=== PATIENT | male | born 1975 | race African-American/Black ===

== ENCOUNTER 2018-11-13 11:16 | Inpatient (IN) | payer SELFPAY ==
[~2018-11-13] VITALS: Ht 175.3 cm; Wt 85.7 kg
[~2018-11-13 11:16] MED LIST: AMLO5TAB10 PO; AMLO5TAB4; AMLO5TAB4 PO; AMOX1TAB61 PO; ASPI-482 PO; ASPI-612 PO; Aspirin PO; CARV12.5 PO; CARV12.511 PO; CLON1PAT3 TD; CYCL10TA2 PO; FURO-68 PO; HYDR-2869 PO; HYDR50TA6 PO; ISOS30TA4 PO; LABE200T4 PO; LISI-334 PO; LOSA-73 PO; LOSA100T14 PO; METH-38 PO; OXYC1TAB15 PO; PANT40TA77 PO; SPIR25TA5 PO; TRAM-48 PO; TRAM50TA PO
--- NOTE | 2018-11-13 11:39 | PHYS DOC ---
Past Medical History Past Medical History: CHF, High Cholesterol, Hypertension, Pancreatitis Additional Past Medical Histor: " LEAKY VALVE" Past Surgical History: Cholecystectomy Additional Past Surgical Histo: cardiac cath with stent placement Alcohol Use: Occasionally Drug Use: None Adult General Chief Complaint Chief Complaint: ABDOMINAL PAIN [facility] HPI Patient is a 43 year old male who presents with abdominal pain since Tuesday. The patient states he has a history of acute pancreatitis. Patient states however that he has not drank in over a year. Patient states the location of pain is in the left flank and left upper quadrant. Rates his pain as 10 out of 10 in severity and states that it feels sharp and pressure was not taken any medications prior to arrival. Review of Systems Review of Systems Constitutional: Denies fever or chills [] Eyes: Denies change in visual acuity, redness, or eye pain [] HENT: Denies nasal congestion or sore throat [] Respiratory: Denies cough or shortness of breath [] Cardiovascular: No additional information not addressed in HPI [] GI: Reports left sided abdominal pain, Denies nausea, vomiting, bloody stools or diarrhea [] : Denies dysuria or hematuria [] Musculoskeletal: Denies back pain or joint pain [] Integument: Denies rash or skin lesions [] Neurologic: Denies headache, focal weakness or sensory changes [] Endocrine: Denies polyuria or polydipsia [] Complete systems were reviewed and found to be within normal limits, except as documented in this note. Current Medications Current Medications Current Medications Medications (Trade) Dose Ordered Sig/Morris Start Time Stop Time Status Last Admin Dose Admin Insulin Human Regular (HumuLIN R VIAL) 8 unit 1X ONCE 11/13/18 14:15 11/13/18 14:16 Ketorolac Tromethamine (Toradol 15mg Vial) 15 mg 1X ONCE 11/13/18 12:00 11/13/18 12:01 DC 11/13/18 12:20 15 MG Morphine Sulfate (Morphine Sulfate) 4 mg 1X ONCE 11/13/18 12:00 11/13/18 12:01 DC 11/13/18 12:20 4 MG Ondansetron HCl (Zofran) 4 mg 1X ONCE 11/13/18 12:00 11/13/18 12:01 DC 11/13/18 12:20 4 MG Sodium Chloride 1,000 ml @ 1,000 mls/hr 1X ONCE 11/13/18 13:30 11/13/18 14:29 Allergies Allergies Allergies Coded Allergies Type Severity Reaction Last Updated Verified hydrocodone Allergy Severe itching all over body, tolerates Morphine OK 04/24/15 Yes fentanyl Allergy Intermediate Nausea and Vomiting 12/24/15 Yes Iodine and Iodide Containing Produc Allergy Unknown 11/13/18 Yes Physical Exam Physical Exam Constitutional: Well developed, well nourished, no acute distress, non-toxic appearance. [] HENT: Normocephalic, atraumatic, bilateral external ears normal, oropharynx moist, no oral exudates, nose normal. [] Eyes: PERRLA, EOMI, conjunctiva normal, no discharge. [] Neck: Normal range of motion, no tenderness, supple, no stridor. [] Cardiovascular:Heart rate regular rhythm, no murmur [] Lungs & Thorax: Bilateral breath sounds clear to auscultation [] Abdomen: Bowel sounds normal, soft, diffuse tenderness to left flank, and LUQ, no masses, no pulsatile masses. [] Skin: Warm, dry, no erythema, no rash. [] Back: No tenderness, has left sided CVA tenderness. [] Extremities: No tenderness, no cyanosis, no clubbing, ROM intact, no edema. [] Neurologic: Alert and oriented X 3, normal motor function, normal sensory function, no focal deficits noted. [] Psychologic: Affect normal, judgement normal, mood normal. [] Current Patient Data Vital Signs Vital Signs Date Time Temp Pulse Resp B/P (MAP) Pulse Ox O2 Delivery O2 Flow Rate FiO2 11/13/18 12:20 16 99 Room Air 11/13/18 11:31 97.9 111 172/102 (125) 97.9 Lab Values Laboratory Tests Test 11/13/18 11:20 11/13/18 11:35 Urine Collection Type Unknown Urine Color Yellow Urine Clarity Clear Urine pH 5.5 Urine Specific [place] >=1.030 Urine Protein Negative mg/dL (NEG-TRACE) Urine Glucose (UA) >=1000 mg/dL (NEG) Urine Ketones (Stick) Negative mg/dL (NEG) Urine Blood Negative (NEG) Urine Nitrite Negative (NEG) Urine Bilirubin Negative (NEG) Urine Urobilinogen Dipstick 0.2 mg/dL (0.2 mg/dL) Urine Leukocyte Esterase Negative (NEG) Urine RBC 0 /HPF (0-2) Urine WBC 0 /HPF (0-4) Urine Bacteria 0 /HPF (0-FEW) White Blood Count 5.8 x10^3/uL (4.0-11.0) Red Blood Count 5.36 x10^6/uL (4.30-5.70) Hemoglobin 14.3 g/dL (13.0-17.5) Hematocrit 43.5 % (39.0-53.0) Mean Corpuscular Volume 81 fL (79-100) Mean Corpuscular Hemoglobin 27 pg (25-35) Mean Corpuscular Hemoglobin Concent 33 g/dL (31-37) Red Cell Distribution Width 13.5 % (11.5-14.5) Platelet Count 228 x10^3/uL (140-400) Neutrophils (%) (Auto) 61 % (31-73) Lymphocytes (%) (Auto) 29 % (24-48) Monocytes (%) (Auto) 9 % (0-9) Eosinophils (%) (Auto) 1 % (0-3) Basophils (%) (Auto) 1 % (0-3) Neutrophils # (Auto) 3.5 x10^3uL (1.8-7.7) Lymphocytes # (Auto) 1.7 x10^3/uL (1.0-4.8) Monocytes # (Auto) 0.5 x10^3/uL (0.0-1.1) Eosinophils # (Auto) 0.0 x10^3/uL (0.0-0.7) Basophils # (Auto) 0.1 x10^3/uL (0.0-0.2) Sodium Level 122 mmol/L (136-145) L Potassium Level 4.5 mmol/L (3.5-5.1) Chloride Level 87 mmol/L (98-107) L Carbon Dioxide Level 23 mmol/L (21-32) Anion Gap 12 (6-14) Blood Urea Nitrogen 16 mg/dL (8-26) Creatinine 1.6 mg/dL (0.7-1.3) H Estimated GFR (Cockcroft-Gault) 57.4 BUN/Creatinine Ratio 10 (6-20) Glucose Level 746 mg/dL (70-99) *H Calcium Level 9.8 mg/dL (8.5-10.1) Total Bilirubin 0.4 mg/dL (0.2-1.0) Aspartate Amino Transferase (AST) 21 U/L (15-37) Alanine Aminotransferase (ALT) 37 U/L (16-63) Alkaline Phosphatase 245 U/L (46-116) H IW-Fkx-G-Type Natriuretic Peptide 205 pg/mL (0-124) H Total Protein 8.6 g/dL (6.4-8.2) H Albumin 3.8 g/dL (3.4-5.0) Albumin/Globulin Ratio 0.8 (1.0-1.7) L Lipase 280 U/L (73-393) Laboratory Tests 11/13/18 11:35 Laboratory Tests 11/13/18 11:35 EKG EKG [] Radiology/Procedures Radiology/Procedures [] Course & Med Decision Making Course & Med Decision Making Pertinent Labs and Imaging studies reviewed. (See chart for details) Will get a CT abd pelvis without contrast due to contrast allergy, labs, and urine. Labs shows blood sugar of 747 with a corrected sodium of 138. Discussed case with Dr. Gillis who will admit to hospital. Dragon Disclaimer Dragon Disclaimer This electronic medical record was generated, in whole or in part, using a voice recognition dictation system. Departure Departure Impression: Primary Impression: Hyperglycemia Disposition: 09 ADMITTED INPATIENT Admitting Physician: JASWINDER Condition: STABLE Referrals: NO PCP (PCP) PRATIK ORTIZ APRN Nov 13, 2018 11:39
[2018-11-13 11:45] LABS: BILIRUBIN,URINE NEGATIVE (NEG); CLARITY,URINE CLEAR; COLOR,URINE YELLOW; NITRITE,URINE NEGATIVE (NEG); PH,URINE 5.5; PROTEIN,URINE NEGATIVE (NEG-TRACE); UROBILINOGEN,URINE 0.2 mg/dL (0.2 mg/dL)
[2018-11-13 11:52] LABS: BASO # 0.1 x10^3/uL (0.0-0.2); BASO % 1 % (0-3); EOS % 1 % (0-3); HEMATOCRIT 43.5 % (39.0-53.0); HEMOGLOBIN 14.3 g/dL (13.0-17.5); LYMPH # 1.7 x10^3/uL (1.0-4.8); LYMPH % 29 % (24-48); MEAN CORPUSCULAR HEMOGLOBIN 27 pg (25-35); MEAN CORPUSCULAR HGB CONC 33 g/dL (31-37); MEAN CORPUSCULAR VOLUME 81 fL (79-100); MONO # 0.5 x10^3/uL (0.0-1.1); MONO % 9 % (0-9); NEUT # 3.5 x10^3uL (1.8-7.7); NEUT % 61 % (31-73); PLATELET COUNT 228 x10^3/uL (140-400); RED BLOOD COUNT 5.36 x10^6/uL (4.30-5.70); RED CELL DISTRIBUTION WIDTH 13.5 % (11.5-14.5); WHITE BLOOD COUNT 5.8 x10^3/uL (4.0-11.0)
[2018-11-13 11:53] LABS: BACTERIA,URINE 0 /HPF (0-FEW); RBC,URINE 0 /HPF (0-2); WBC,URINE 0 /HPF (0-4)
[2018-11-13] MEDS ORDERED: KETOROLAC 15 MG/ML VIAL. IV ONE (12:00)
[2018-11-13] MEDS ORDERED: ONDANSETRON PF 4 MG/2 ML VIAL. IV ONE (12:00)
[2018-11-13] MEDS ORDERED: MORPHINE SULFATE 4 MG/ML VIAL. IV ONE (12:00)
[2018-11-13 12:03] LABS: ALBUMIN 3.8 g/dL (3.4-5.0); ALBUMIN/GLOBULIN RATIO 0.8 (1.0-1.7); CALCIUM 9.8 mg/dL (8.5-10.1); CREATININE 1.6 mg/dL (0.7-1.3); GFR 57.4; POTASSIUM 4.5 mmol/L (3.5-5.1); TOTAL BILIRUBIN 0.4 mg/dL (0.2-1.0); TOTAL PROTEIN 8.6 g/dL (6.4-8.2)
--- NOTE | 2018-11-13 12:44 | RAD ---
PQRS Compliance Statement: One or more of the following individualized dose reduction techniques were utilized for this examination: 1. Automated exposure control 2. Adjustment of the mA and/or kV according to patient size 3. Use of iterative reconstruction technique CT abdomen/pelvis without contrast 11/13/2018 11:33 AM INDICATION: Abdominal pain COMPARISON: CT abdomen/pelvis December 24, 2015 TECHNIQUE: Multiple axial CT images of the abdomen and pelvis were obtained without intravenous contrast. Coronal and sagittal reformats are provided. FINDINGS: Lung bases are clear. Heart size is within normal limits. Coronary artery vascular calcifications are present. Small hiatal hernia is identified. Evaluation of the solid abdominal viscera is limited by lack of intravenous contrast. Liver, spleen, bilateral adrenal glands are normal in appearance. Coarse calcifications within the pancreas most favor sequela of chronic pancreatitis. There is mild prominence of the main pancreatic duct measuring up to 5 mm. Calcifications of significantly progressed since prior examination from December 24, 2015. Cholecystectomy changes are present. There is no intrahepatic or extrahepatic biliary ductal dilatation. Abdominal aorta is normal in course and caliber. There are no pathologically enlarged lymph nodes in abdomen and pelvis. There is no free fluid or free intraperitoneal air. Small and large bowel are normal in caliber. There is no evidence for bowel obstruction. There are no pericolonic inflammatory changes. A normal, nondilated appendix is visualized without adjacent inflammatory changes. Moderate amount of stool is noted throughout the colon. The kidneys are relatively symmetric in appearance. There is no suspicious renal mass within the limitations of a noncontrast examination. There is no hydronephrosis. There are no calculi within the kidneys, ureters or urinary bladder. Mild bladder wall thickening may be secondary to underdistention versus cystitis. Prostate and seminal vesicles are normal in appearance. No suspicious osseous abnormality is identified. IMPRESSION: 1. No evidence for obstructive uropathy. 2. Coarse calcifications throughout the pancreas with mild dilatation of the main pancreatic duct measuring up to 5 mm. Findings most favor sequela of chronic pancreatitis. 3. Mild bladder wall thickening may be secondary to underdistention versus cystitis. 4. Moderate stool burden without evidence for bowel obstruction or inflammation. Electronically signed by: Nano Cardenas MD (11/13/2018 12:42 PM) [id number]
[2018-11-13] MEDS ORDERED: IV NORMAL SALINE 1000ML BAG 1,000 ML IV ONE (13:30)
--- NOTE | 2018-11-13 13:56 | PDOC1 ---
History and Physical Date of Admission Date of Admission DATE: 11/13/18 TIME: 13:54 Identification/Chief Complaint Chief Complaint Intractable abdominal pain Source Source: Patient History of Present Illness History of Present Illness Mr Loo is a 43yo M w/ PMHx HTN who presents with abdominal pain since Tuesday, 2 days ago. The patient states he has a history of acute pancreatitis and had had cholecystectomy for his first bout, then had alcoholic pancreatitis last year. Patient states he has not drank in over a year. Patient states the location of pain is in the left flank and left upper quadrant. Rates his pain as 10 out of 10 in severity and states that it feels sharp pain. He further notes he has been losing a lot of weight over the past 5 months and has had increased thirst and urination. He notes he had gotten off his blood pressure medications with his weight loss. In ED noted with a blood glucose of 746mg/dL, no history of diabetes and a creatinine of 1.[address] abdomen notable for findings most favoring sequela of chronic pancreatitis and moderate stool burden. Lipase was 280. Past Medical History Cardiovascular: CAD, CHF, HTN, Hyperlipidemia, Other Pulmonary: No pertinent hx CENTRAL NERVOUS SYSTEM: Other GI: No pertinent hx Heme/Onc: No pertinent hx Hepatobiliary: Cholelithiasis Psych: Addictions Musculoskeletal: low back pain Rheumatologic: No pertinent hx Infectious disease: No pertinent hx Renal/: No pertinent hx Endocrine: Other Past Surgical History Past Surgical History: Cholecystectomy Family History Family History: Cancer, Diabetes, Hypertension Social History Smoke: 1 pack per day ALCOHOL: other (QUIT) Drugs: None Current Problem List Problem List Problems Medical Problems: (1) Hyperglycemia Status: Acute Current Medications Current Medications Current Medications Morphine Sulfate (Morphine Sulfate) 4 mg 1X ONCE IV Last administered on 11/13/18at 12:20; Start 11/13/18 at 12:00; Stop 11/13/18 at 12:01; Status DC Ketorolac Tromethamine (Toradol 15mg Vial) 15 mg 1X ONCE IV Last administered on 11/13/18at 12:20; Start 11/13/18 at 12:00; Stop 11/13/18 at 12:01; Status DC Ondansetron HCl (Zofran) 4 mg 1X ONCE IV Last administered on 11/13/18at 12:20; Start 11/13/18 at 12:00; Stop 11/13/18 at 12:01; Status DC Sodium Chloride 1,000 ml @ 1,000 mls/hr 1X ONCE IV ; Start 11/13/18 at 13:30; Stop 11/13/18 at 14:29 Insulin Human Regular (HumuLIN R VIAL) 8 unit 1X ONCE IV ; Start 11/13/18 at 14:15; Stop 11/13/18 at 14:16 Ondansetron HCl (Zofran) 4 mg PRN Q8HRS PRN IV NAUSEA/VOMITING; Start 11/13/18 at 14:00; Stop 11/14/18 at 13:59; Status UNV Morphine Sulfate (Morphine Sulfate) 4 mg PRN Q2HR PRN IV PAIN; Start 11/13/18 at 14:00; Stop 11/14/18 at 13:59; Status UNV Active Scripts Active Cozaar (Losartan Potassium) 50 Mg Tablet 50 Mg PO DAILY Cyclobenzaprine Hcl 10 Mg Tablet 10 Mg PO TID Hydralazine Hcl 50 Mg Tablet 100 Mg PO TID Clonidine Tts-3 (Clonidine) 1 Each Patch.tdwk 1 Patch TD WEEKLY Aspirin Ec (Aspirin) 81 Mg Tablet.dr 81 Mg PO DAILYAC Amlodipine Besylate 5 Mg Tablet 10 Mg PO DAILY Allergies Allergies: Coded Allergies: hydrocodone (Verified Allergy, Severe, itching all over body, tolerates Morphine OK, 04/24/15) Iodine and Iodide Containing Produc (Verified Allergy, Intermediate, 11/13/18) fentanyl (Verified Allergy, Intermediate, Nausea and Vomiting, 12/24/15) ROS General: YES: Fatigue, Malaise, Appetite; No: Chills, Night Sweats, Other PSYCHOLOGICAL ROS: No: Anxiety, Behavioral Disorder, Concentration difficultie, Decreased libido, Depression, Disorientation, Hallucinations, Hostility, Irritablity, Memory difficulties, Mood Swings, Obsessive thoughts, Physical abuse, Sexual abuse, Sleep disturbances, Suicidal ideation, Other Eyes: No Blurry vision, No Decreased vision, No Double vision, No Dry eyes, No Excessive tearing, No Eye Pain, No Itchy Eyes, No Loss of vision, No Photophobia, No Scotomata, No Uses contacts, No Uses glasses, No Other HEENT: No: Heacaches, Visual Changes, Hearing change, Nasal congestion, Nasal discharge, Oral lesions, Sinus pain, Sore Throat, Epistaxis, Sneezing, Snoring, Tinnitus, Vertigo, Vocal changes, Other ALLERGY AND IMMUNOLOGY: No: Hives, Insect Bite Sensitivity, Itchy/Watery Eyes, Nasal Congestion, Post Nasal Drip, Seasonal Allergies, Other Hematological and Lymphatic: No: Bleeding Problems, Blood Clots, Blood T ransfusions, Brusing, Night Sweats, Pallor, Swollen Lymph Nodes, Other ENDOCRINE: YES: Malaise/lethargy, Polydipsia/polyuria, Unexpected Weight Changes; No: Breast Changes, Galactorrhea, Hair Pattern Changes, Hot Flashes, Mood Swings, Palpitations, Skin Changes, Temperature Intolerance, Other Breast: No New/Changing Breast Lumps, No Nipple changes, No Nipple discharge, No Other Respiratory: No: Cough, Hemoptysis, Orthopnea, Pleuritic Pain, Shortness of breath, SOB with excertion, Sputum Changes, Stridor, Tachypnea, Wheezing, Other Cardiovascular: No Chest Pain, No Palpitations, No Orthopnea, No Paroxysmal No c. Dyspnea, No Edema, No Lt Headedness, No Other Gastrointestinal: Yes Nausea; No Vomiting, No Abdominal Pain, No Diarrhea, No Constipation, No Melena, No Hematochezia, No Other Genitourinary: YES Flank Pain; No Dysuria, No Frequency, No Incontinence, No Hematuria, No Retention, No Discharge, No Urgency, No Pain, No Other, No , No , No , No , No , No , No Musculoskeletal: No Gait Disturbance, No Joint Pain, No Joint Stiffness, No Joint Swelling, No Muscle Pain, No Muscular Weakness, No Pain In:, No Swelling In:, No Other Neurological: No Behavorial Changes, No Bowel/Bladder ControlChng, No Confusion, No Dizziness, No Gait Disturbance, No Headaches, No Impaired Coord/balance, No Memory Loss, No Numbness/Tingling, No Seizures, No Speech Problems, No Tremors, No Visual Changes, No Weakness, No Other Skin: No Dry Skin, No Eczema, No Hair Changes, No Lumps, No Mole Changes, No Mottling, No Nail Changes, No Pruritus, No Rash, No Skin Lesion Changes, No Other, No Acne Physical Exam General: Alert, Oriented X3, Cooperative, No acute distress HEENT: Atraumatic, PERRLA, EOMI, Mucous membr. moist/pink Lungs: Clear to auscultation, Normal air movement Heart: S1S2, RRR, no gallops, no murmurs Abdomen: Normal bowel sounds, Soft, No hepatosplenomegaly, No masses, Other (Left sided pain) Male Genitals Exam: normal genitalia, normal prostate Extremities: No clubbing, No cyanosis, No edema, Normal pulses, No tenderness/swelling Skin: No rashes, No breakdown, No significant lesion Neuro: Normal gait, Normal speech, Strength at 5/5 X4 ext, Normal tone, Sensation intact, Cranial nerves 3-12 NL, Reflexes 2+ Psych/Mental Status: Mental status NL, Mood NL Vitals Vitals Vital Signs Date Time Temp Pulse Resp B/P (MAP) Pulse Ox O2 Delivery O2 Flow Rate FiO2 11/13/18 12:20 16 99 Room Air 11/13/18 11:31 97.9 111 172/102 (125) 97.9 Labs Labs Laboratory Tests Test 11/13/18 11:20 11/13/18 11:35 Urine Collection Type Unknown Urine Color Yellow Urine Clarity Clear Urine pH 5.5 Urine Specific [place] >=1.030 Urine Protein Negative mg/dL (NEG-TRACE) Urine Glucose (UA) >=1000 mg/dL (NEG) Urine Ketones (Stick) Negative mg/dL (NEG) Urine Blood Negative (NEG) Urine Nitrite Negative (NEG) Urine Bilirubin Negative (NEG) Urine Urobilinogen Dipstick 0.2 mg/dL (0.2 mg/dL) Urine Leukocyte Esterase Negative (NEG) Urine RBC 0 /HPF (0-2) Urine WBC 0 /HPF (0-4) Urine Bacteria 0 /HPF (0-FEW) White Blood Count 5.8 x10^3/uL (4.0-11.0) Red Blood Count 5.36 x10^6/uL (4.30-5.70) Hemoglobin 14.3 g/dL (13.0-17.5) Hematocrit 43.5 % (39.0-53.0) Mean Corpuscular Volume 81 fL (79-100) Mean Corpuscular Hemoglobin 27 pg (25-35) Mean Corpuscular Hemoglobin Concent 33 g/dL (31-37) Red Cell Distribution Width 13.5 % (11.5-14.5) Platelet Count 228 x10^3/uL (140-400) Neutrophils (%) (Auto) 61 % (31-73) Lymphocytes (%) (Auto) 29 % (24-48) Monocytes (%) (Auto) 9 % (0-9) Eosinophils (%) (Auto) 1 % (0-3) Basophils (%) (Auto) 1 % (0-3) Neutrophils # (Auto) 3.5 x10^3uL (1.8-7.7) Lymphocytes # (Auto) 1.7 x10^3/uL (1.0-4.8) Monocytes # (Auto) 0.5 x10^3/uL (0.0-1.1) Eosinophils # (Auto) 0.0 x10^3/uL (0.0-0.7) Basophils # (Auto) 0.1 x10^3/uL (0.0-0.2) Sodium Level 122 mmol/L (136-145) Potassium Level 4.5 mmol/L (3.5-5.1) Chloride Level 87 mmol/L (98-107) Carbon Dioxide Level 23 mmol/L (21-32) Anion Gap 12 (6-14) Blood Urea Nitrogen 16 mg/dL (8-26) Creatinine 1.6 mg/dL (0.7-1.3) Estimated GFR (Cockcroft-Gault) 57.4 BUN/Creatinine Ratio 10 (6-20) Glucose Level 746 mg/dL (70-99) Calcium Level 9.8 mg/dL (8.5-10.1) Total Bilirubin 0.4 mg/dL (0.2-1.0) Aspartate Amino Transf (AST/SGOT) 21 U/L (15-37) Alanine Aminotransferase (ALT/SGPT) 37 U/L (16-63) Alkaline Phosphatase 245 U/L (46-116) NB-Qvm-R-Type Natriuretic Peptide 205 pg/mL (0-124) Total Protein 8.6 g/dL (6.4-8.2) Albumin 3.8 g/dL (3.4-5.0) Albumin/Globulin Ratio 0.8 (1.0-1.7) Lipase 280 U/L (73-393) Laboratory Tests Test 11/13/18 11:20 11/13/18 11:35 Urine Collection Type Unknown Urine Color Yellow Urine Clarity Clear Urine pH 5.5 Urine Specific [place] >=1.030 Urine Protein Negative mg/dL (NEG-TRACE) Urine Glucose (UA) >=1000 mg/dL (NEG) Urine Ketones (Stick) Negative mg/dL (NEG) Urine Blood Negative (NEG) Urine Nitrite Negative (NEG) Urine Bilirubin Negative (NEG) Urine Urobilinogen Dipstick 0.2 mg/dL (0.2 mg/dL) Urine Leukocyte Esterase Negative (NEG) Urine RBC 0 /HPF (0-2) Urine WBC 0 /HPF (0-4) Urine Bacteria 0 /HPF (0-FEW) White Blood Count 5.8 x10^3/uL (4.0-11.0) Red Blood Count 5.36 x10^6/uL (4.30-5.70) Hemoglobin 14.3 g/dL (13.0-17.5) Hematocrit 43.5 % (39.0-53.0) Mean Corpuscular Volume 81 fL (79-100) Mean Corpuscular Hemoglobin 27 pg (25-35) Mean Corpuscular Hemoglobin Concent 33 g/dL (31-37) Red Cell Distribution Width 13.5 % (11.5-14.5) Platelet Count 228 x10^3/uL (140-400) Neutrophils (%) (Auto) 61 % (31-73) Lymphocytes (%) (Auto) 29 % (24-48) Monocytes (%) (Auto) 9 % (0-9) Eosinophils (%) (Auto) 1 % (0-3) Basophils (%) (Auto) 1 % (0-3) Neutrophils # (Auto) 3.5 x10^3uL (1.8-7.7) Lymphocytes # (Auto) 1.7 x10^3/uL (1.0-4.8) Monocytes # (Auto) 0.5 x10^3/uL (0.0-1.1) Eosinophils # (Auto) 0.0 x10^3/uL (0.0-0.7) Basophils # (Auto) 0.1 x10^3/uL (0.0-0.2) Sodium Level 122 mmol/L (136-145) Potassium Level 4.5 mmol/L (3.5-5.1) Chloride Level 87 mmol/L (98-107) Carbon Dioxide Level 23 mmol/L (21-32) Anion Gap 12 (6-14) Blood Urea Nitrogen 16 mg/dL (8-26) Creatinine 1.6 mg/dL (0.7-1.3) Estimated GFR (Cockcroft-Gault) 57.4 BUN/Creatinine Ratio 10 (6-20) Glucose Level 746 mg/dL (70-99) Calcium Level 9.8 mg/dL (8.5-10.1) Total Bilirubin 0.4 mg/dL (0.2-1.0) Aspartate Amino Transf (AST/SGOT) 21 U/L (15-37) Alanine Aminotransferase (ALT/SGPT) 37 U/L (16-63) Alkaline Phosphatase 245 U/L (46-116) ZK-Sdp-[id number]-Type Natriuretic Peptide 205 pg/mL (0-124) Total Protein 8.6 g/dL (6.4-8.2) Albumin 3.8 g/dL (3.4-5.0) Albumin/Globulin Ratio 0.8 (1.0-1.7) Lipase 280 U/L (73-393) Images Images CT abdomen - 1. No evidence for obstructive uropathy. 2. Coarse calcifications throughout the pancreas with mild dilatation of the main pancreatic duct measuring up to 5 mm. Findings most favor sequela of chronic pancreatitis. 3. Mild bladder wall thickening may be secondary to underdistention versus cystitis. 4. Moderate stool burden without evidence for bowel obstruction or inflammation. VTE Prophylaxis Ordered VTE Prophylaxis Devices: Yes VTE Pharmacological Prophylaxi: Yes Assessment/Plan Assessment/Plan A/P: Abdominal pain - consistent with chronic pancreatitis. Also appears constipated. Will check lipids, TSH. Bowel regimen Consult GI Hyperglycemia - non-ketotic. He is newly diabetic now, based on his 5 month history of polyuria and polydipsia with weight loss this makes sense. Check A1c, sliding scale insulin JEAN - likely from vasomotor nephropathy, dehydration, will cont IVF HTN - will restart his meds from home FEN - ADA diet PPX - SCDs FULL CODE Inpatient for intractable abdominal pain, newly diagnosed diabetic FAITH AGUIAR MD Nov 13, 2018 13:56
[2018-11-13] MEDS ORDERED: ONDANSETRON PF 4 MG/2 ML VIAL. IV PRN (14:00)
[2018-11-13] MEDS ORDERED: INSULIN REGULAR 100 UNIT/ML 3ML VIAL. IV ONE (14:15)
[2018-11-13 15:15] VITALS: BP 139/92
[2018-11-13] MEDS: MORPHINE SULFATE 4 MG/ML VIAL. IV PRN ×2 (15:23→20:10)
[2018-11-13] MEDS ORDERED: DEXTROSE 50% 25 GM / 50ML DISP.SYRIN. IV PRN (15:45)
--- NOTE | 2018-11-13 16:00 | NUR ---
Pt stated he has no active home medications.
[2018-11-13] MEDS: CYCLOBENZAPRINE 10 MG TABLET. PO SCH ×2 (17:30→20:11)
[2018-11-13] MEDS: INSULIN LISPRO 300 UNITS/3 ML INSULN.PEN. SQ SCH ×3 (17:33→23:44)
[2018-11-13 19:20] VITALS: BP 125/86
[2018-11-13] MEDS ORDERED: POLYETHYLENE GLYCOL 3350 17 GM PACKET. PO PRN (20:30)
[2018-11-13] MEDS ORDERED: INSULIN LISPRO 300 UNITS/3 ML INSULN.PEN. SQ ONE (20:30)
[2018-11-13] MEDS ORDERED: INSULIN GLARGINE 300 UNITS/3 ML INSULN.PEN. SQ SCH ×2 (21:00)
[2018-11-13] MEDS: IV NORMAL SALINE 1000ML BAG 1,000 ML IV SCH (21:09)
[2018-11-13 23:25] VITALS: BP 130/78
[2018-11-14 03:25] VITALS: BP 131/82
[2018-11-14] MEDS: INSULIN LISPRO 300 UNITS/3 ML INSULN.PEN. SQ SCH ×3 (04:00→12:50)
[2018-11-14 04:41] LABS: CALCIUM 8.9 mg/dL (8.5-10.1); GFR 98.7; MAGNESIUM 1.9 mg/dL (1.8-2.4); POTASSIUM 3.5 mmol/L (3.5-5.1)
[2018-11-14 04:42] LABS: CHOLESTEROL/HDL RATIO 5.4
[2018-11-14] MEDS: IV NORMAL SALINE 1000ML BAG 1,000 ML IV SCH (05:44)
[2018-11-14 07:00] VITALS: BP 143/84
[2018-11-14] MEDS ORDERED: ASPIRIN ENTERIC COATED 81 MG TABLET.DR. PO SCH (07:30)
--- NOTE | 2018-11-14 08:34 | PDOC ---
PROGRESS NOTES Chief Complaint Chief Complaint A/P: Abdominal pain - consistent with chronic pancreatitis. Also appears constipated. Will check lipids, TSH. Bowel regimen Consult GI Hyperglycemia - non-ketotic. He is newly diabetic now, based on his 5 month history of polyuria and polydipsia with weight loss this makes sense. Check A1c, sliding scale insulin JEAN - likely from vasomotor nephropathy, dehydration, will cont IVF HTN - will restart his meds from home FEN - ADA diet PPX - SCDs FULL CODE Inpatient for intractable abdominal pain, newly diagnosed diabetic History of Present Illness History of Present Illness Mr Loo is a 43yo M w/ PMHx HTN who presents with abdominal pain since Tuesday, 2 days ago. The patient states he has a history of acute pancreatitis and had had cholecystectomy for his first bout, then had alcoholic pancreatitis last year. Patient states he has not drank in over a year. Patient states the location of pain is in the left flank and left upper quadrant. Rates his pain as 10 out of 10 in severity and states that it feels sharp pain. He further notes he has been losing a lot of weight over the past 5 months and has had increased thirst and urination. He notes he had gotten off his blood pressure medications with his weight loss. In ED noted with a blood glucose of 746mg/dL, no history of diabetes and a creatinine of 1.[address] abdomen notable for findings most favoring sequela of chronic pancreatitis and moderate stool burden. Lipase was 280. Glucose came from 746-->415-->210-->412-->315 with lispro coverage and was given 10u Lantus on 11/13 in the evening. Overnight after his glycemic control improved his abdominal pain resolved. TSH was WNL. A1c still pending. He wishes for discharge. Vitals Vitals Vital Signs Date Time Temp Pulse Resp B/P (MAP) Pulse Ox O2 Delivery O2 Flow Rate FiO2 11/14/18 07:00 97.6 66 18 143/84 (103) 99 Room Air 97.6 Physical Exam General: Alert, Oriented X3, Cooperative, No acute distress Lungs: Clear Abdomen: Normal bowel sounds, Soft, No hepatosplenomegaly, No masses, Other (Left sided pain) Extremities: No clubbing, No cyanosis, No edema, Normal pulses, No tenderness/swelling Skin: No rashes, No breakdown, No significant lesion Labs LABS Laboratory Tests Test 11/13/18 11:20 11/13/18 11:35 11/13/18 11:41 11/13/18 14:37 Urine Collection Type Unknown Urine Color Yellow Urine Clarity Clear Urine pH 5.5 Urine Specific [place] >=1.030 Urine Protein Negative mg/dL (NEG-TRACE) Urine Glucose (UA) >=1000 mg/dL (NEG) Urine Ketones (Stick) Negative mg/dL (NEG) Urine Blood Negative (NEG) Urine Nitrite Negative (NEG) Urine Bilirubin Negative (NEG) Urine Urobilinogen Dipstick 0.2 mg/dL (0.2 mg/dL) Urine Leukocyte Esterase Negative (NEG) Urine RBC 0 /HPF (0-2) Urine WBC 0 /HPF (0-4) Urine Bacteria 0 /HPF (0-FEW) White Blood Count 5.8 x10^3/uL (4.0-11.0) Red Blood Count 5.36 x10^6/uL (4.30-5.70) Hemoglobin 14.3 g/dL (13.0-17.5) Hematocrit 43.5 % (39.0-53.0) Mean Corpuscular Volume 81 fL (79-100) Mean Corpuscular Hemoglobin 27 pg (25-35) Mean Corpuscular Hemoglobin Concent 33 g/dL (31-37) Red Cell Distribution Width 13.5 % (11.5-14.5) Platelet Count 228 x10^3/uL (140-400) Neutrophils (%) (Auto) 61 % (31-73) Lymphocytes (%) (Auto) 29 % (24-48) Monocytes (%) (Auto) 9 % (0-9) Eosinophils (%) (Auto) 1 % (0-3) Basophils (%) (Auto) 1 % (0-3) Neutrophils # (Auto) 3.5 x10^3uL (1.8-7.7) Lymphocytes # (Auto) 1.7 x10^3/uL (1.0-4.8) Monocytes # (Auto) 0.5 x10^3/uL (0.0-1.1) Eosinophils # (Auto) 0.0 x10^3/uL (0.0-0.7) Basophils # (Auto) 0.1 x10^3/uL (0.0-0.2) Sodium Level 122 mmol/L (136-145) Potassium Level 4.5 mmol/L (3.5-5.1) Chloride Level 87 mmol/L (98-107) Carbon Dioxide Level 23 mmol/L (21-32) Anion Gap 12 (6-14) Blood Urea Nitrogen 16 mg/dL (8-26) Creatinine 1.6 mg/dL (0.7-1.3) Estimated GFR (Cockcroft-Gault) 57.4 BUN/Creatinine Ratio 10 (6-20) Glucose Level 746 mg/dL (70-99) Calcium Level 9.8 mg/dL (8.5-10.1) Phosphorus Level 4.7 mg/dL (2.6-4.7) Total Bilirubin 0.4 mg/dL (0.2-1.0) Aspartate Amino Transf (AST/SGOT) 21 U/L (15-37) Alanine Aminotransferase (ALT/SGPT) 37 U/L (16-63) Alkaline Phosphatase 245 U/L (46-116) MC-Tzb-B-Type Natriuretic Peptide 205 pg/mL (0-124) Total Protein 8.6 g/dL (6.4-8.2) Albumin 3.8 g/dL (3.4-5.0) Albumin/Globulin Ratio 0.8 (1.0-1.7) Lipase 280 U/L (73-393) Thyroid Stimulating Hormone (TSH) 1.862 uIU/mL (0.358-3.74) Ethyl Alcohol Level < 10 mg/dL (0-10) Glucose (Fingerstick) 415 mg/dL (70-99) Test 11/13/18 16:50 11/13/18 20:14 11/13/18 23:03 11/14/18 03:30 Glucose (Fingerstick) 210 mg/dL (70-99) 412 mg/dL (70-99) 315 mg/dL (70-99) Sodium Level 136 mmol/L (136-145) Potassium Level 3.5 mmol/L (3.5-5.1) Chloride Level 100 mmol/L (98-107) Carbon Dioxide Level 27 mmol/L (21-32) Anion Gap 9 (6-14) Blood Urea Nitrogen 19 mg/dL (8-26) Creatinine 1.0 mg/dL (0.7-1.3) Estimated GFR (Cockcroft-Gault) 98.7 Glucose Level 134 mg/dL (70-99) Calcium Level 8.9 mg/dL (8.5-10.1) Magnesium Level 1.9 mg/dL (1.8-2.4) Triglycerides Level 149 mg/dL (0-150) Cholesterol Level 179 mg/dL (0-200) LDL Cholesterol, Calculated 116 mg/dL (0-100) VLDL Cholesterol, Calculated 30 mg/dL (0-40) Non-HDL Cholesterol Calculated 146 mg/dL (0-129) HDL Cholesterol 33 mg/dL (40-60) Cholesterol/HDL Ratio 5.4 Test 11/14/18 04:18 11/14/18 05:44 11/14/18 07:29 Glucose (Fingerstick) 101 mg/dL (70-99) 101 mg/dL (70-99) 107 mg/dL (70-99) Assessment and Plan Assessmemt and Plan Problems Medical Problems: (1) Hyperglycemia Status: Acute Comment Review of Relevant I have reviewed the following items diego (where applicable) has been applied. Labs Laboratory Tests Test 11/13/18 11:20 11/13/18 11:35 11/13/18 11:41 11/13/18 14:37 Urine Collection Type Unknown Urine Color Yellow Urine Clarity Clear Urine pH 5.5 Urine Specific [place] >=1.030 Urine Protein Negative mg/dL (NEG-TRACE) Urine Glucose (UA) >=1000 mg/dL (NEG) Urine Ketones (Stick) Negative mg/dL (NEG) Urine Blood Negative (NEG) Urine Nitrite Negative (NEG) Urine Bilirubin Negative (NEG) Urine Urobilinogen Dipstick 0.2 mg/dL (0.2 mg/dL) Urine Leukocyte Esterase Negative (NEG) Urine RBC 0 /HPF (0-2) Urine WBC 0 /HPF (0-4) Urine Bacteria 0 /HPF (0-FEW) White Blood Count 5.8 x10^3/uL (4.0-11.0) Red Blood Count 5.36 x10^6/uL (4.30-5.70) Hemoglobin 14.3 g/dL (13.0-17.5) Hematocrit 43.5 % (39.0-53.0) Mean Corpuscular Volume 81 fL (79-100) Mean Corpuscular Hemoglobin 27 pg (25-35) Mean Corpuscular Hemoglobin Concent 33 g/dL (31-37) Red Cell Distribution Width 13.5 % (11.5-14.5) Platelet Count 228 x10^3/uL (140-400) Neutrophils (%) (Auto) 61 % (31-73) Lymphocytes (%) (Auto) 29 % (24-48) Monocytes (%) (Auto) 9 % (0-9) Eosinophils (%) (Auto) 1 % (0-3) Basophils (%) (Auto) 1 % (0-3) Neutrophils # (Auto) 3.5 x10^3uL (1.8-7.7) Lymphocytes # (Auto) 1.7 x10^3/uL (1.0-4.8) Monocytes # (Auto) 0.5 x10^3/uL (0.0-1.1) Eosinophils # (Auto) 0.0 x10^3/uL (0.0-0.7) Basophils # (Auto) 0.1 x10^3/uL (0.0-0.2) Sodium Level 122 mmol/L (136-145) Potassium Level 4.5 mmol/L (3.5-5.1) Chloride Level 87 mmol/L (98-107) Carbon Dioxide Level 23 mmol/L (21-32) Anion Gap 12 (6-14) Blood Urea Nitrogen 16 mg/dL (8-26) Creatinine 1.6 mg/dL (0.7-1.3) Estimated GFR (Cockcroft-Gault) 57.4 BUN/Creatinine Ratio 10 (6-20) Glucose Level 746 mg/dL (70-99) Calcium Level 9.8 mg/dL (8.5-10.1) Phosphorus Level 4.7 mg/dL (2.6-4.7) Total Bilirubin 0.4 mg/dL (0.2-1.0) Aspartate Amino Transf (AST/SGOT) 21 U/L (15-37) Alanine Aminotransferase (ALT/SGPT) 37 U/L (16-63) Alkaline Phosphatase 245 U/L (46-116) WF-Uan-C-Type Natriuretic Peptide 205 pg/mL (0-124) Total Protein 8.6 g/dL (6.4-8.2) Albumin 3.8 g/dL (3.4-5.0) Albumin/Globulin Ratio 0.8 (1.0-1.7) Lipase 280 U/L (73-393) Thyroid Stimulating Hormone (TSH) 1.862 uIU/mL (0.358-3.74) Ethyl Alcohol Level < 10 mg/dL (0-10) Glucose (Fingerstick) 415 mg/dL (70-99) Test 11/13/18 16:50 11/13/18 20:14 11/13/18 23:03 11/14/18 03:30 Glucose (Fingerstick) 210 mg/dL (70-99) 412 mg/dL (70-99) 315 mg/dL (70-99) Sodium Level 136 mmol/L (136-145) Potassium Level 3.5 mmol/L (3.5-5.1) Chloride Level 100 mmol/L (98-107) Carbon Dioxide Level 27 mmol/L (21-32) Anion Gap 9 (6-14) Blood Urea Nitrogen 19 mg/dL (8-26) Creatinine 1.0 mg/dL (0.7-1.3) Estimated GFR (Cockcroft-Gault) 98.7 Glucose Level 134 mg/dL (70-99) Calcium Level 8.9 mg/dL (8.5-10.1) Magnesium Level 1.9 mg/dL (1.8-2.4) Triglycerides Level 149 mg/dL (0-150) Cholesterol Level 179 mg/dL (0-200) LDL Cholesterol, Calculated 116 mg/dL (0-100) VLDL Cholesterol, Calculated 30 mg/dL (0-40) Non-HDL Cholesterol Calculated 146 mg/dL (0-129) HDL Cholesterol 33 mg/dL (40-60) Cholesterol/HDL Ratio 5.4 Test 11/14/18 04:18 11/14/18 05:44 11/14/18 07:29 Glucose (Fingerstick) 101 mg/dL (70-99) 101 mg/dL (70-99) 107 mg/dL (70-99) Laboratory Tests Test 11/13/18 11:20 11/13/18 11:35 11/13/18 11:41 11/13/18 14:37 Urine Collection Type Unknown Urine Color Yellow Urine Clarity Clear Urine pH 5.5 Urine Specific [place] >=1.030 Urine Protein Negative mg/dL (NEG-TRACE) Urine Glucose (UA) >=1000 mg/dL (NEG) Urine Ketones (Stick) Negative mg/dL (NEG) Urine Blood Negative (NEG) Urine Nitrite Negative (NEG) Urine Bilirubin Negative (NEG) Urine Urobilinogen Dipstick 0.2 mg/dL (0.2 mg/dL) Urine Leukocyte Esterase Negative (NEG) Urine RBC 0 /HPF (0-2) Urine WBC 0 /HPF (0-4) Urine Bacteria 0 /HPF (0-FEW) White Blood Count 5.8 x10^3/uL (4.0-11.0) Red Blood Count 5.36 x10^6/uL (4.30-5.70) Hemoglobin 14.3 g/dL (13.0-17.5) Hematocrit 43.5 % (39.0-53.0) Mean Corpuscular Volume 81 fL (79-100) Mean Corpuscular Hemoglobin 27 pg (25-35) Mean Corpuscular Hemoglobin Concent 33 g/dL (31-37) Red Cell Distribution Width 13.5 % (11.5-14.5) Platelet Count 228 x10^3/uL (140-400) Neutrophils (%) (Auto) 61 % (31-73) Lymphocytes (%) (Auto) 29 % (24-48) Monocytes (%) (Auto) 9 % (0-9) Eosinophils (%) (Auto) 1 % (0-3) Basophils (%) (Auto) 1 % (0-3) Neutrophils # (Auto) 3.5 x10^3uL (1.8-7.7) Lymphocytes # (Auto) 1.7 x10^3/uL (1.0-4.8) Monocytes # (Auto) 0.5 x10^3/uL (0.0-1.1) Eosinophils # (Auto) 0.0 x10^3/uL (0.0-0.7) Basophils # (Auto) 0.1 x10^3/uL (0.0-0.2) Sodium Level 122 mmol/L (136-145) Potassium Level 4.5 mmol/L (3.5-5.1) Chloride Level 87 mmol/L (98-107) Carbon Dioxide Level 23 mmol/L (21-32) Anion Gap 12 (6-14) Blood Urea Nitrogen 16 mg/dL (8-26) Creatinine 1.6 mg/dL (0.7-1.3) Estimated GFR (Cockcroft-Gault) 57.4 BUN/Creatinine Ratio 10 (6-20) Glucose Level 746 mg/dL (70-99) Calcium Level 9.8 mg/dL (8.5-10.1) Phosphorus Level 4.7 mg/dL (2.6-4.7) Total Bilirubin 0.4 mg/dL (0.2-1.0) Aspartate Amino Transf (AST/SGOT) 21 U/L (15-37) Alanine Aminotransferase (ALT/SGPT) 37 U/L (16-63) Alkaline Phosphatase 245 U/L (46-116) ZY-Nvz-G-Type Natriuretic Peptide 205 pg/mL (0-124) Total Protein 8.6 g/dL (6.4-8.2) Albumin 3.8 g/dL (3.4-5.0) Albumin/Globulin Ratio 0.8 (1.0-1.7) Lipase 280 U/L (73-393) Thyroid Stimulating Hormone (TSH) 1.862 uIU/mL (0.358-3.74) Ethyl Alcohol Level < 10 mg/dL (0-10) Glucose (Fingerstick) 415 mg/dL (70-99) Test 11/13/18 16:50 11/13/18 20:14 11/13/18 23:03 11/14/18 03:30 Glucose (Fingerstick) 210 mg/dL (70-99) 412 mg/dL (70-99) 315 mg/dL (70-99) Sodium Level 136 mmol/L (136-145) Potassium Level 3.5 mmol/L (3.5-5.1) Chloride Level 100 mmol/L (98-107) Carbon Dioxide Level 27 mmol/L (21-32) Anion Gap 9 (6-14) Blood Urea Nitrogen 19 mg/dL (8-26) Creatinine 1.0 mg/dL (0.7-1.3) Estimated GFR (Cockcroft-Gault) 98.7 Glucose Level 134 mg/dL (70-99) Calcium Level 8.9 mg/dL (8.5-10.1) Magnesium Level 1.9 mg/dL (1.8-2.4) Triglycerides Level 149 mg/dL (0-150) Cholesterol Level 179 mg/dL (0-200) LDL Cholesterol, Calculated 116 mg/dL (0-100) VLDL Cholesterol, Calculated 30 mg/dL (0-40) Non-HDL Cholesterol Calculated 146 mg/dL (0-129) HDL Cholesterol 33 mg/dL (40-60) Cholesterol/HDL Ratio 5.4 Test 11/14/18 04:18 11/14/18 05:44 11/14/18 07:29 Glucose (Fingerstick) 101 mg/dL (70-99) 101 mg/dL (70-99) 107 mg/dL (70-99) Medications Current Medications Morphine Sulfate (Morphine Sulfate) 4 mg 1X ONCE IV Last administered on 11/13/18at 12:20; Start 11/13/18 at 12:00; Stop 11/13/18 at 12:01; Status DC Ketorolac Tromethamine (Toradol 15mg Vial) 15 mg 1X ONCE IV Last administered on 11/13/18at 12:20; Start 11/13/18 at 12:00; Stop 11/13/18 at 12:01; Status DC Ondansetron HCl (Zofran) 4 mg 1X ONCE IV Last administered on 11/13/18at 12:20; Start 11/13/18 at 12:00; Stop 11/13/18 at 12:01; Status DC Sodium Chloride 1,000 ml @ 1,000 mls/hr 1X ONCE IV Last administered on 11/13/18at 13:55; Start 11/13/18 at 13:30; Stop 11/13/18 at 14:29; Status DC Insulin Human Regular (HumuLIN R VIAL) 8 unit 1X ONCE IV Last administered on 11/13/18at 14:01; Start 11/13/18 at 14:15; Stop 11/13/18 at 14:16; Status DC Ondansetron HCl (Zofran) 4 mg PRN Q8HRS PRN IV NAUSEA/VOMITING; Start 11/13/18 at 14:00; Stop 11/14/18 at 13:59 Morphine Sulfate (Morphine Sulfate) 4 mg PRN Q2HR PRN IV PAIN Last administered on 11/13/18at 20:10; Start 11/13/18 at 14:00; Stop 11/14/18 at 13:59 Insulin Glargine (Lantus) 5 units QHS SQ ; Start 11/13/18 at 21:00; Stop 11/13/18 at 21:00; Status DC Insulin Human Lispro (HumaLOG) 0-5 UNITS Q4HRS SQ Last administered on 11/13/18at 23:44; Start 11/13/18 at 16:00 Dextrose (Dextrose 50%-Water Syringe) 12.5 gm PRN Q15MIN PRN IV SEE COMMENTS; Start 11/13/18 at 15:45 Amlodipine Besylate (Norvasc) 10 mg DAILY PO ; Start 11/14/18 at 09:00 Aspirin (Ecotrin) 81 mg DAILYAC PO ; Start 11/14/18 at 07:30 Clonidine HCl (Catapres Tts-3) 1 patch WEEKLY TD ; Start 11/20/18 at 09:00; Sto p 11/20/18 at 09:00; Status DC Cyclobenzaprine HCl (Flexeril) 10 mg TID PO Last administered on 11/13/18at 20:11; Start 11/13/18 at 16:00 Losartan Potassium (Cozaar) 50 mg DAILY PO ; Start 11/14/18 at 09:00 Hydralazine HCl (Apresoline) 100 mg TID PO Last administered on 11/13/18at 20:11; Start 11/13/18 at 16:00 Insulin Glargine (Lantus) 10 units QHS SQ Last administered on 11/13/18at 21:08; Start 11/13/18 at 21:00 Sodium Chloride 1,000 ml @ 100 mls/hr Q10H IV Last administered on 11/14/18at 05:44; Start 11/13/18 at 20:30 Polyethylene Glycol (miraLAX PACKET) 17 gm PRN BID PRN PO CONSTIPATION; Start 11/13/18 at 20:30 Insulin Human Lispro (HumaLOG) 8 units 1X ONCE SQ Last administered on 11/13/18at 21:08; Start 11/13/18 at 20:30; Stop 11/13/18 at 20:31; Status DC Active Scripts Active Cozaar (Losartan Potassium) 50 Mg Tablet 50 Mg PO DAILY Cyclobenzaprine Hcl 10 Mg Tablet 10 Mg PO TID Hydralazine Hcl 50 Mg Tablet 100 Mg PO TID Clonidine Tts-3 (Clonidine) 1 Each Patch.tdwk 1 Patch TD WEEKLY Aspirin Ec (Aspirin) 81 Mg Tablet.dr 81 Mg PO DAILYAC Amlodipine Besylate 5 Mg Tablet 10 Mg PO DAILY Vitals/I & O Vital Sign - Last 24 Hours 11/13/18 11/13/18 11/13/18 11/13/18 11:31 11:56 12:20 12:26 Temp 97.9 97.9 Pulse 111 106 100 Resp 20 20 16 20 B/P (MAP) 172/102 (125) 133/86 (102) 122/74 (90) Pulse Ox 99 98 99 97 O2 Delivery Room Air Room Air Room Air Room Air 11/13/18 11/13/18 11/13/18 11/13/18 12:56 13:56 14:26 15:15 Temp 97.6 97.6 Pulse 96 76 78 79 Resp 18 18 18 20 B/P (MAP) 103/71 (82) 152/67 (95) 122/63 (82) 139/92 (108) Pulse Ox 98 99 99 98 O2 Delivery Room Air Room Air Room Air Room Air 11/13/18 11/13/18 11/13/18 11/13/18 17:30 19:20 20:10 20:11 Temp 97.9 97.9 Pulse 78 78 78 Resp 18 16 B/P (MAP) 122/63 125/86 (99) 125/86 Pulse Ox 100 98 O2 Delivery Room Air 11/13/18 11/13/18 11/14/18 11/14/18 20:40 23:25 03:25 07:00 Temp 97.5 97.4 97.6 97.5 97.4 97.6 Pulse 65 66 66 Resp 16 18 18 18 B/P (MAP) 130/78 (95) 131/82 (98) 143/84 (103) Pulse Ox 98 100 100 99 O2 Delivery Room Air Room Air Room Air Intake and Output 11/13/18 11/13/18 11/14/18 15:00 23:00 07:00 Intake Total 1000 ml 1050 ml Balance 1000 ml 1050 ml FAITH AGUIAR MD Nov 14, 2018 08:34
[2018-11-14] MEDS: CYCLOBENZAPRINE 10 MG TABLET. PO SCH ×2 (08:43→14:00)
[2018-11-14] MEDS ORDERED: POTASSIUM CHLORIDE 20 MEQ TABLET.ER. PO ONE (09:00)
[2018-11-14] MEDS ORDERED: LOSARTAN POTASSIUM 50 MG TABLET. PO SCH (09:00)
[2018-11-14] MEDS ORDERED: amLODIPine BESYLATE 10 MG TABLET PO SCH (09:00)
[2018-11-14 11:00] VITALS: BP 123/72
[2018-11-14] MEDS ORDERED: HYDR-2869 PO (11:54)
[2018-11-14] MEDS ORDERED: INSU100I13 SQ (11:54)
[2018-11-14] MEDS ORDERED: LOSA-73 PO (11:54)
[2018-11-14] MEDS ORDERED: AMLO5TAB10 PO (11:54)
[2018-11-14] MEDS ORDERED: METF500T16 PO (11:54)
--- NOTE | 2018-11-14 11:59 | PDOC3 ---
Discharge Summary Visit Information Date of Admission: Nov 13, 2018 Date of Discharge: Nov 14, 2018 Admitting Diagnosis: intractable abdominal pain, hyperglycemia Final Diagnosis Problems Medical Problems: (1) Hyperglycemia Status: Acute Brief Hospital Course Allergies Allergies Coded Allergies Type Severity Reaction Last Updated Verified hydrocodone Allergy Severe itching all over body, tolerates Morphine OK 04/24/15 Yes Iodine and Iodide Containing Produc Allergy Intermediate 11/13/18 Yes fentanyl Allergy Intermediate Nausea and Vomiting 12/24/15 Yes Vital Signs Vital Signs Date Time Temp Pulse Resp B/P (MAP) Pulse Ox O2 Delivery O2 Flow Rate FiO2 11/14/18 11:00 97.7 71 16 123/72 (89) 97 Room Air 97.7 Lab Results Laboratory Tests Test 11/13/18 11:20 11/13/18 11:35 11/13/18 11:41 11/13/18 14:37 Urine Collection Type Unknown Urine Color Yellow Urine Clarity Clear Urine pH 5.5 Urine Specific [place] >=1.030 Urine Protein Negative mg/dL (NEG-TRACE) Urine Glucose (UA) >=1000 mg/dL (NEG) Urine Ketones (Stick) Negative mg/dL (NEG) Urine Blood Negative (NEG) Urine Nitrite Negative (NEG) Urine Bilirubin Negative (NEG) Urine Urobilinogen Dipstick 0.2 mg/dL (0.2 mg/dL) Urine Leukocyte Esterase Negative (NEG) Urine RBC 0 /HPF (0-2) Urine WBC 0 /HPF (0-4) Urine Bacteria 0 /HPF (0-FEW) White Blood Count 5.8 x10^3/uL (4.0-11.0) Red Blood Count 5.36 x10^6/uL (4.30-5.70) Hemoglobin 14.3 g/dL (13.0-17.5) Hematocrit 43.5 % (39.0-53.0) Mean Corpuscular Volume 81 fL (79-100) Mean Corpuscular Hemoglobin 27 pg (25-35) Mean Corpuscular Hemoglobin Concent 33 g/dL (31-37) Red Cell Distribution Width 13.5 % (11.5-14.5) Platelet Count 228 x10^3/uL (140-400) Neutrophils (%) (Auto) 61 % (31-73) Lymphocytes (%) (Auto) 29 % (24-48) Monocytes (%) (Auto) 9 % (0-9) Eosinophils (%) (Auto) 1 % (0-3) Basophils (%) (Auto) 1 % (0-3) Neutrophils # (Auto) 3.5 x10^3uL (1.8-7.7) Lymphocytes # (Auto) 1.7 x10^3/uL (1.0-4.8) Monocytes # (Auto) 0.5 x10^3/uL (0.0-1.1) Eosinophils # (Auto) 0.0 x10^3/uL (0.0-0.7) Basophils # (Auto) 0.1 x10^3/uL (0.0-0.2) Sodium Level 122 mmol/L (136-145) Potassium Level 4.5 mmol/L (3.5-5.1) Chloride Level 87 mmol/L (98-107) Carbon Dioxide Level 23 mmol/L (21-32) Anion Gap 12 (6-14) Blood Urea Nitrogen 16 mg/dL (8-26) Creatinine 1.6 mg/dL (0.7-1.3) Estimated GFR (Cockcroft-Gault) 57.4 BUN/Creatinine Ratio 10 (6-20) Glucose Level 746 mg/dL (70-99) Calcium Level 9.8 mg/dL (8.5-10.1) Phosphorus Level 4.7 mg/dL (2.6-4.7) Total Bilirubin 0.4 mg/dL (0.2-1.0) Aspartate Amino Transf (AST/SGOT) 21 U/L (15-37) Alanine Aminotransferase (ALT/SGPT) 37 U/L (16-63) Alkaline Phosphatase 245 U/L (46-116) XW-Ivg-F-Type Natriuretic Peptide 205 pg/mL (0-124) Total Protein 8.6 g/dL (6.4-8.2) Albumin 3.8 g/dL (3.4-5.0) Albumin/Globulin Ratio 0.8 (1.0-1.7) Lipase 280 U/L (73-393) Thyroid Stimulating Hormone (TSH) 1.862 uIU/mL (0.358-3.74) Ethyl Alcohol Level < 10 mg/dL (0-10) Glucose (Fingerstick) 415 mg/dL (70-99) Test 11/13/18 16:50 11/13/18 20:14 11/13/18 23:03 11/14/18 03:30 Glucose (Fingerstick) 210 mg/dL (70-99) 412 mg/dL (70-99) 315 mg/dL (70-99) Sodium Level 136 mmol/L (136-145) Potassium Level 3.5 mmol/L (3.5-5.1) Chloride Level 100 mmol/L (98-107) Carbon Dioxide Level 27 mmol/L (21-32) Anion Gap 9 (6-14) Blood Urea Nitrogen 19 mg/dL (8-26) Creatinine 1.0 mg/dL (0.7-1.3) Estimated GFR (Cockcroft-Gault) 98.7 Glucose Level 134 mg/dL (70-99) Calcium Level 8.9 mg/dL (8.5-10.1) Magnesium Level 1.9 mg/dL (1.8-2.4) Triglycerides Level 149 mg/dL (0-150) Cholesterol Level 179 mg/dL (0-200) LDL Cholesterol, Calculated 116 mg/dL (0-100) VLDL Cholesterol, Calculated 30 mg/dL (0-40) Non-HDL Cholesterol Calculated 146 mg/dL (0-129) HDL Cholesterol 33 mg/dL (40-60) Cholesterol/HDL Ratio 5.4 Test 11/14/18 04:18 11/14/18 05:44 11/14/18 07:29 Glucose (Fingerstick) 101 mg/dL (70-99) 101 mg/dL (70-99) 107 mg/dL (70-99) Laboratory Tests Test 11/13/18 11:41 11/13/18 14:37 11/13/18 16:50 11/13/18 20:14 Ethyl Alcohol Level < 10 mg/dL (0-10) Glucose (Fingerstick) 415 mg/dL (70-99) 210 mg/dL (70-99) 412 mg/dL (70-99) Test 11/13/18 23:03 11/14/18 03:30 11/14/18 04:18 11/14/18 05:44 Glucose (Fingerstick) 315 mg/dL (70-99) 101 mg/dL (70-99) 101 mg/dL (70-99) Sodium Level 136 mmol/L (136-145) Potassium Level 3.5 mmol/L (3.5-5.1) Chloride Level 100 mmol/L (98-107) Carbon Dioxide Level 27 mmol/L (21-32) Anion Gap 9 (6-14) Blood Urea Nitrogen 19 mg/dL (8-26) Creatinine 1.0 mg/dL (0.7-1.3) Estimated GFR (Cockcroft-Gault) 98.7 Glucose Level 134 mg/dL (70-99) Calcium Level 8.9 mg/dL (8.5-10.1) Magnesium Level 1.9 mg/dL (1.8-2.4) Triglycerides Level 149 mg/dL (0-150) Cholesterol Level 179 mg/dL (0-200) LDL Cholesterol, Calculated 116 mg/dL (0-100) VLDL Cholesterol, Calculated 30 mg/dL (0-40) Non-HDL Cholesterol Calculated 146 mg/dL (0-129) HDL Cholesterol 33 mg/dL (40-60) Cholesterol/HDL Ratio 5.4 Test 11/14/18 07:29 Glucose (Fingerstick) 107 mg/dL (70-99) Brief Hospital Course Mr Loo is a 43yo M w/ PMHx HTN who presents with abdominal pain since Tuesday, 2 days ago. The patient states he has a history of acute pancreatitis and had had cholecystectomy for his first bout, then had alcoholic pancreatitis last year. Patient states he has not drank in over a year. Patient states the location of pain is in the left flank and left upper quadrant. Rates his pain as 10 out of 10 in severity and states that it feels sharp pain. He further notes he has been losing a lot of weight over the past 5 months and has had increased thirst and urination. He notes he had gotten off his blood pressure medications with his weight loss. In ED noted with a blood glucose of 746mg/dL, no history of diabetes and a creatinine of 1.[address] abdomen notable for findings most favoring sequela of chronic pancreatitis an d moderate stool burden. Lipase was 280. Glucose came from 746-->415-->210-->412-->315 with lispro coverage and was given 10u Lantus on 11/13 in the evening. Overnight after his glycemic control improved his abdominal pain resolved. TSH was WNL. A1c still pending on d/c A/P: Abdominal pain - consistent with chronic pancreatitis. Also was constipated. checked lipids, TSH. Bowel regimen Hyperglycemia - non-ketotic. He is newly diabetic now, based on his 5 month history of polyuria and polydipsia with weight loss this makes sense. Check A1c, sliding scale insulin JEAN - likely from vasomotor nephropathy, dehydration, IVF improved this HTN - will restart his meds from home, needs new scripts Discharge Information Condition at Discharge: Improved Follow Up: Weeks (2) Disposition/Orders: D/C to Home Scheduled Amlodipine Besylate (Amlodipine Besylate) 5 Mg Tablet, 10 MG PO DAILY, #30 Prescribed by: WALKER JHAVERI MD on 04/16/161150 Last Action: Continued on 11/13/181541 by FAITH AGUIAR MD Aspirin (Aspirin Ec) 81 Mg Tablet.dr, 81 MG PO DAILYAC, #30 Prescribed by: WALKER JHAVERI MD on 04/16/161150 Last Action: Continued on 11/13/181541 by FAITH AGUIAR MD Clonidine (Clonidine Tts-3) 1 Each Patch.tdwk, 1 PATCH TD WEEKLY, #10 Prescribed by: WALKER JHAVERI MD on 04/16/161150 Last Action: Continued on 11/13/181541 by FAITH AGUIAR MD Cyclobenzaprine Hcl (Cyclobenzaprine Hcl) 10 Mg Tablet, 10 MG PO TID, #20 Prescribed by: WALKER JHAVERI MD on 04/16/161150 Last Action: Continued on 11/13/181541 by FAITH AGUIAR MD Hydralazine Hcl (Hydralazine Hcl) 50 Mg Tablet, 100 MG PO TID, #90 Prescribed by: WALKER JHAVERI MD on 04/16/161150 Last Action: Converted on 11/13/181541 by FAITH AGUIAR MD Losartan Potassium (Cozaar ) 50 Mg Tablet, 50 MG PO DAILY, #30 Prescribed by: WALKER JHAVERI MD on 04/16/16 115 Last Action: Continued on 11/13/181541 by MD STEFANIA CANCINO CHRISTOPHER S MD Nov 14, 2018 11:59
[2018-11-14 15:00] VITALS: BP 129/67
[2018-11-15 05:12] LABS: HEMOGLOBIN A1C >15.5 % (4.8-5.6)
[2018-11-20] MEDS ORDERED: cloNIDine TTS-3 1 PATCH PATCH.TDWK TD SCH (09:00)
== END 2018-11-14 13:22 | disposition home or self-care (01) | DRG 682 ==
LOC: ER 11:16 → 6 SOUTH 13:28
PROVIDERS: ADMIT Internal Medicine; ATTEND Internal Medicine
DX: N17.0 Acute kidney failure with tubular necrosis (principal); E11.00 Type 2 diabetes mellitus with hyperosmolarity without nonketotic hyperglycemic-hyperosmolar coma (NKHHC); K86.1 Other chronic pancreatitis; E86.0 Dehydration; E78.00 Pure hypercholesterolemia, unspecified; E78.5 Hyperlipidemia, unspecified; F17.210 Nicotine dependence, cigarettes, uncomplicated; I11.0 Hypertensive heart disease with heart failure; K59.00 Constipation, unspecified; I25.10 Atherosclerotic heart disease of native coronary artery without angina pectoris; I50.9 Heart failure, unspecified; Z82.49 Family history of ischemic heart disease and other diseases of the circulatory system; Z90.49 Acquired absence of other specified parts of digestive tract; Z83.3 Family history of diabetes mellitus; Z84.89 Family history of other specified conditions; Z88.8 Allergy status to other drugs, medicaments and biological substances; Z91.041 Radiographic dye allergy status; Z79.4 Long term (current) use of insulin
CPT/HCPCS: 36415; 74176; 80048; 80053; 80061; 81001; 82962; 83036; 83690; 83735; 83880; 84100; 84443; 85025; 96361; 96374; 96375; G0480; J1815; J1885; J2270; J2405; J7030; 99285-25

== ENCOUNTER 2019-01-15 13:13 | Inpatient (IN) | payer SELFPAY ==
[~2019-01-15] VITALS: Ht 175.3 cm; Wt 84.4 kg
[~2019-01-15 13:13] MED LIST changes: +INSU100I13 SQ; +METF500T16 PO
[2019-01-15] MEDS ORDERED: MORPHINE SULFATE 4 MG/ML VIAL. IV ONE (14:00)
[2019-01-15] MEDS ORDERED: ONDANSETRON PF 4 MG/2 ML VIAL. IV ONE (14:00)
[2019-01-15] MEDS ORDERED: IV NORMAL SALINE 1000ML BAG 1,000 ML IV ONE ×4 (14:00→15:30)
[2019-01-15 14:04] LABS: BASO # 0.1 x10^3/uL (0.0-0.2); BASO % 1 % (0-3); EOS % 0 % (0-3); HEMOGLOBIN 13.4 g/dL (13.0-17.5); LYMPH # 1.8 x10^3/uL (1.0-4.8); LYMPH % 30 % (24-48); MEAN CORPUSCULAR HEMOGLOBIN 27 pg (25-35); MEAN CORPUSCULAR HGB CONC 34 g/dL (31-37); MEAN CORPUSCULAR VOLUME 81 fL (79-100); MONO # 0.5 x10^3/uL (0.0-1.1); MONO % 8 % (0-9); NEUT # 3.6 x10^3/uL (1.8-7.7); NEUT % 60 % (31-73); PLATELET COUNT 196 x10^3/uL (140-400); RED BLOOD COUNT 4.97 x10^6/uL (4.30-5.70); RED CELL DISTRIBUTION WIDTH 13.6 % (11.5-14.5)
[2019-01-15 14:20] LABS: ALBUMIN 3.8 g/dL (3.4-5.0); CALCIUM 9.1 mg/dL (8.5-10.1); CREATININE 1.4 mg/dL (0.7-1.3); GFR 66.9; POTASSIUM 4.2 mmol/L (3.5-5.1); TOTAL BILIRUBIN 0.4 mg/dL (0.2-1.0); TOTAL PROTEIN 7.6 g/dL (6.4-8.2)
--- NOTE | 2019-01-15 14:29 | RAD ---
PQRS Compliance statement: One or more of the following individualized dose reduction techniques were utilized for this examination: 1. Automated exposure control. 2. Adjustment of the mA and/or kV according to patient size. 3. Use of iterative reconstruction technique. Indication:Left upper quadrant pain. History of pancreatitis. TECHNIQUE: CT abdomen and pelvis without IV contrast with multiplanar reformats. COMPARISON: 11/13/2018. FINDINGS: Limited evaluation of solid abdominal and pelvic organs due to lack of IV contrast. Heart is normal in size. No pericardial or pleural effusion. Clear lung bases. Noncontrast appearance of the liver, spleen, adrenals within normal limits. Status post cholecystectomy. Diffuse punctate calcifications are seen in the pancreas. No peripancreatic inflammatory changes or fluid collection. No nephrolithiasis or hydronephrosis. No enlarged retroperitoneal or pelvic adenopathy. The prostate and seminal vesicles show no large mass. No bowel obstruction. Normal appendix. Urinary bladder demonstrates no radiopaque stones. No suspicious bony lesion. IMPRESSION: Limited evaluation of solid abdominal and pelvic organs due to lack of IV contrast. Findings of stigmata of chronic pancreatitis. Acute on chronic pancreatitis not ruled out. Clinically correlate with pancreatic enzymes. Electronically signed by: Rocky Jenkins DO (01/15/2019 2:26 PM) [facility]
[2019-01-15] MEDS ORDERED: INSULIN REGULAR 100 UNIT/ML 3ML VIAL. IV ONE (14:30)
--- NOTE | 2019-01-15 15:19 | PHYS DOC ---
Past Medical History Past Medical History: CHF, Diabetes-Type II, High Cholesterol, Hypertension, Pancreatitis Additional Past Medical Histor: " LEAKY VALVE" Past Surgical History: Cholecystectomy Additional Past Surgical Histo: cardiac cath with stent placement Alcohol Use: Sober Drug Use: None Adult General Chief Complaint Chief Complaint: ABDOMINAL PAIN HPI HPI Patient is a 43 year old male with history of uncontrolled diabetes type 2, uncontrolled hypertension, high cholesterol, CHF, current smoker who presents to the ED today complaining of 10 out of 10 left upper quadrant abdominal pain radiating to his back that began on Tuesday last week and has increasingly gotten worse. Patient denies any nausea, vomiting. Denies any exacerbating or relieving factors to his pain. He states he stopped using alcohol one year ago. Denies any chest pain. Review of Systems Review of Systems Constitutional: Denies fever or chills [] Eyes: Denies change in visual acuity, redness, or eye pain [] HENT: Denies nasal congestion or sore throat [] Respiratory: Denies cough or shortness of breath [] Cardiovascular: No additional information not addressed in HPI [] GI: Reports left upper quadrant abdominal pain, denies nausea, vomiting, bloody stools or diarrhea [] : Denies dysuria or hematuria [] Musculoskeletal: Denies back pain or joint pain [] Integument: Denies rash or skin lesions [] Neurologic: Denies headache, focal weakness or sensory changes [] Endocrine: Reports history of uncontrolled diabetes type 2 All other systems were reviewed and found to be within normal limits, except as documented in this note. Current Medications Current Medications Current Medications Medications (Trade) Dose Ordered Sig/[facility] Start Time Stop Time Status Last Admin Dose Admin Insulin Human Regular (HumuLIN R VIAL) 8 unit 1X ONCE 01/15/19 14:30 01/15/19 14:31 DC 01/15/19 15:03 8 UNIT Morphine Sulfate (Morphine Sulfate) 4 mg 1X ONCE 01/15/19 14:00 01/15/19 14:01 DC 01/15/19 15:03 4 MG Ondansetron HCl (Zofran) 4 mg 1X ONCE 01/15/19 14:00 01/15/19 14:01 DC 01/15/19 15:03 4 MG Sodium Chloride 1,000 ml @ 1,000 mls/hr 1X ONCE 01/15/19 14:30 01/15/19 15:29 DC Allergies Allergies Allergies Coded Allergies Type Severity Reaction Last Updated Verified hydrocodone Allergy Severe itching all over body, tolerates Morphine OK 04/24/15 Yes Iodine and Iodide Containing Produc Allergy Intermediate 11/13/18 Yes fentanyl Allergy Intermediate Nausea and Vomiting 12/24/15 Yes Physical Exam Physical Exam Constitutional: Well developed, well nourished, no acute distress, non-toxic appearance. [] HENT: Normocephalic, atraumatic, bilateral external ears normal, oropharynx moist, no oral exudates, nose normal. [] Eyes: PERRLA, EOMI, conjunctiva normal, no discharge. [] Neck: Normal range of motion, no tenderness, supple, no stridor. [] Cardiovascular:Heart rate regular rhythm, no murmur [] Lungs & Thorax: Bilateral breath sounds clear to auscultation [] Abdomen: Bowel sounds normal, soft, tenderness on palpation of the left upper quadrant, no right upper quadrant or right lower quadrant tenderness, no left low quadrant tenderness, no masses, no pulsatile masses. [] Skin: Warm, dry, no erythema, no rash. [] Back: No tenderness, no CVA tenderness. [] Extremities: No tenderness, no cyanosis, no clubbing, ROM intact, no edema. [] Neurologic: Alert and oriented X 3, normal motor function, normal sensory function, no focal deficits noted. [] Psychologic: Affect normal, judgement normal, mood normal. [] Current Patient Data Vital Signs Vital Signs Date Time Temp Pulse Resp B/P (MAP) Pulse Ox O2 Delivery O2 Flow Rate FiO2 01/15/19 15:03 16 99 Room Air 01/15/19 13:59 98.3 102 172/104 (126) 98.3 Lab Values Laboratory Tests Test 01/15/19 13:55 White Blood Count 6.0 x10^3/uL (4.0-11.0) Red Blood Count 4.97 x10^6/uL (4.30-5.70) Hemoglobin 13.4 g/dL (13.0-17.5) Hematocrit 40.0 % (39.0-53.0) Mean Corpuscular Volume 81 fL (79-100) Mean Corpuscular Hemoglobin 27 pg (25-35) Mean Corpuscular Hemoglobin Concent 34 g/dL (31-37) Red Cell Distribution Width 13.6 % (11.5-14.5) Platelet Count 196 x10^3/uL (140-400) Neutrophils (%) (Auto) 60 % (31-73) Lymphocytes (%) (Auto) 30 % (24-48) Monocytes (%) (Auto) 8 % (0-9) Eosinophils (%) (Auto) 0 % (0-3) Basophils (%) (Auto) 1 % (0-3) Neutrophils # (Auto) 3.6 x10^3/uL (1.8-7.7) Lymphocytes # (Auto) 1.8 x10^3/uL (1.0-4.8) Monocytes # (Auto) 0.5 x10^3/uL (0.0-1.1) Eosinophils # (Auto) 0.0 x10^3/uL (0.0-0.7) Basophils # (Auto) 0.1 x10^3/uL (0.0-0.2) Sodium Level 132 mmol/L (136-145) L Potassium Level 4.2 mmol/L (3.5-5.1) Chloride Level 95 mmol/L (98-107) L Carbon Dioxide Level 24 mmol/L (21-32) Anion Gap 13 (6-14) Blood Urea Nitrogen 16 mg/dL (8-26) Creatinine 1.4 mg/dL (0.7-1.3) H Estimated GFR (Cockcroft-Gault) 66.9 BUN/Creatinine Ratio 11 (6-20) Glucose Level 566 mg/dL (70-99) *H Calcium Level 9.1 mg/dL (8.5-10.1) Total Bilirubin 0.4 mg/dL (0.2-1.0) Aspartate Amino Transferase (AST) 20 U/L (15-37) Alanine Aminotransferase (ALT) 24 U/L (16-63) Alkaline Phosphatase 152 U/L (46-116) H Total Protein 7.6 g/dL (6.4-8.2) Albumin 3.8 g/dL (3.4-5.0) Albumin/Globulin Ratio 1.0 (1.0-1.7) Lipase 722 U/L (73-393) H Ethyl Alcohol Level < 10 mg/dL (0-10) Laboratory Tests 01/15/19 13:55 Laboratory Tests 01/15/19 13:55 EKG EKG [] Radiology/Procedures Radiology/Procedures []PROCEDURE: CT ABDOMEN PELVIS WO CONTRAST PQRS Compliance statement: One or more of the following individualized dose reduction techniques were utilized for this examination: 1. Automated exposure control. 2. Adjustment of the mA and/or kV according to patient size. 3. Use of iterative reconstruction technique. Indication:Left upper quadrant pain. History of pancreatitis. TECHNIQUE: CT abdomen and pelvis without IV contrast with multiplanar reformats. COMPARISON: 11/13/2018. FINDINGS: Limited evaluation of solid abdominal and pelvic organs due to lack of IV contrast. Heart is normal in size. No pericardial or pleural effusion. Clear lung bases. Noncontrast appearance of the liver, spleen, adrenals within normal limits. Status post cholecystectomy. Diffuse punctate calcifications are seen in the pancreas. No peripancreatic inflammatory changes or fluid collection. No nephrolithiasis or hydronephrosis. No enlarged retroperitoneal or pelvic adenopathy. The prostate and seminal vesicles show no large mass. No bowel obstruction. Normal appendix. Urinary bladder demonstrates no radiopaque stones. No suspicious bony lesion. IMPRESSION: Limited evaluation of solid abdominal and pelvic organs due to lack of IV contrast. Findings of stigmata of chronic pancreatitis. Acute on chronic pancreatitis not ruled out. Clinically correlate with pancreatic enzymes. Electronically signed by: Rocky Hameed DO (01/15/2019 2:26 PM) [facility] DICTATED and SIGNED BY: ROCKY HAMEED DO DATE: 01/15/19 1426 Course & Med Decision Making Course & Med Decision Making Pertinent Labs and Imaging studies reviewed. (See chart for details) This is a 43-year-old male patient who presents to the ED today complaining of left upper quadrant abdominal pain radiating to the back that began on Tuesday last week and has gotten worse in the last couple days. History of pancreatitis, no alcohol. CBC with a normal WBC, CMP with glucose of 566, anion gap is normal creatinine 1.4, sodium 132, lipase with 722. Blood pressure 172/104 heart rate of [address] of the abdomen and pelvic was noted for chronic pancreatitis Patient was given IV fluids and insulin. Blood glucose 133 right now. Patient is a current smoker, encouraged to consider smoking cessation [address] Frank who accepted patient for admission Routine consult placed for GI considering this is chronic pancreatitis Efren Disclaimer Efren Disclaimer This electronic medical record was generated, in whole or in part, using a voice recognition dictation system. Departure Departure Impression: Primary Impression: Hyperglycemia Additional Impressions: HTN (hypertension) Chronic pancreatitis Smoking addiction Disposition: ADMITTED INPATIENT Condition: STABLE Referrals: NO PCP (PCP) Problem Qualifiers Additional Impressions: HTN (hypertension) Hypertension type: unspecified Qualified Codes: I10 - Essential (primary) hypertension Chronic pancreatitis Pancreatitis type: unspecified pancreatitis type Qualified Codes: K86.1 - Other chronic pancreatitis KATHY GAITAN [employer] IDENTIFIER Jan 15, 2019 15:19
[2019-01-15] MEDS ORDERED: DEXTROSE 50% 25 GM / 50ML DISP.SYRIN. IV PRN (15:30)
[2019-01-15] MEDS ORDERED: ONDANSETRON PF 4 MG/2 ML VIAL. IV PRN (15:30)
[2019-01-15] MEDS ORDERED: hydrALAZINE 20 MG/ML VIAL. IVP ONE (15:30)
[2019-01-15] MEDS: MORPHINE SULFATE 4 MG/ML VIAL. IV PRN ×3 (16:22→23:07)
--- NOTE | 2019-01-15 16:31 | PDOC2 ---
GI CONSULT Reason For Consult: Chronic pancreatitis HPI: HPI: 43 y/o male seen in ER. LUQ pain "like pancreatitis pain" since last Tuesday night - started after drinking a lot of coffee and eating popcorn. Had some acid reflux on and Tuesday - usually not bothered by this and has since resolved. No n/v - eating and drinking normally at home w/ no change in pain. No diarrhea or constipation. No hematochezia or melena. No dysphagia. Quit drinking alcohol 1.5 years ago - has lost weight since then. 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 Was told he was diabetic in November but never picked up his prescription then. Might have had an EGD years ago - reports normal results and no h/o PUD. No previous colonoscopy. S/p cholecystectomy for stones w/ normal IOC in 2014. Fatty liver on past US (in 2014) Takes Aleve PRN. Two MRCPs in the past - the first not complete due to pain, and no mention of the pancreas in the report on the second (in 04/2016). Mildly elevated CA19-9 in the past, then normal when last checked in 04/2016. In ER, hypertensive and hyperglycemic (glucose 566). Lipase 722, Cr 1.4. Alk Phos 152 (also elevated in the past). Chronic pancreatitis on non-contrast CT. PMH: PMH: CAD, CHF, HTN, mitral regurg, pulm HTN, pancreatitis, fatty liver cholecystectomy, cardiac cath FH: Family History: Cancer (pancreatic - mother, colon or prostate - father), DM, Hypertension Social History: Smoke: 1 pack per day ALCOHOL: other (sober 1.5 years) Drugs: None ROS: GEN: Denies fevers, chills, sweats HEENT: Denies blurred vision, sore throat CV: Denies chest pain RESP: Denies shortness of air, cough GI: Per HPI : Denies hematuria, dysuria ENDO: +weight loss NEURO: Denies confusion, dizziness MSK: Denies weakness, joint pain/swelling SKIN: Denies jaundice, pruritus Vitals: Vitals: Vital Signs Date Time Temp Pulse Resp B/P (MAP) Pulse Ox O2 Delivery O2 Flow Rate FiO2 01/15/19 15:03 16 99 Room Air 01/15/19 13:59 98.3 102 172/104 (126) 98.3 Labs: Labs: Laboratory Tests Test 01/15/19 13:55 01/15/19 16:06 White Blood Count 6.0 x10^3/uL (4.0-11.0) Red Blood Count 4.97 x10^6/uL (4.30-5.70) Hemoglobin 13.4 g/dL (13.0-17.5) Hematocrit 40.0 % (39.0-53.0) Mean Corpuscular Volume 81 fL (79-100) Mean Corpuscular Hemoglobin 27 pg (25-35) Mean Corpuscular Hemoglobin Concent 34 g/dL (31-37) Red Cell Distribution Width 13.6 % (11.5-14.5) Platelet Count 196 x10^3/uL (140-400) Neutrophils (%) (Auto) 60 % (31-73) Lymphocytes (%) (Auto) 30 % (24-48) Monocytes (%) (Auto) 8 % (0-9) Eosinophils (%) (Auto) 0 % (0-3) Basophils (%) (Auto) 1 % (0-3) Neutrophils # (Auto) 3.6 x10^3/uL (1.8-7.7) Lymphocytes # (Auto) 1.8 x10^3/uL (1.0-4.8) Monocytes # (Auto) 0.5 x10^3/uL (0.0-1.1) Eosinophils # (Auto) 0.0 x10^3/uL (0.0-0.7) Basophils # (Auto) 0.1 x10^3/uL (0.0-0.2) Sodium Level 132 mmol/L (136-145) Potassium Level 4.2 mmol/L (3.5-5.1) Chloride Level 95 mmol/L (98-107) Carbon Dioxide Level 24 mmol/L (21-32) Anion Gap 13 (6-14) Blood Urea Nitrogen 16 mg/dL (8-26) Creatinine 1.4 mg/dL (0.7-1.3) Estimated GFR (Cockcroft-Gault) 66.9 BUN/Creatinine Ratio 11 (6-20) Glucose Level 566 mg/dL (70-99) Calcium Level 9.1 mg/dL (8.5-10.1) Total Bilirubin 0.4 mg/dL (0.2-1.0) Aspartate Amino Transf (AST/SGOT) 20 U/L (15-37) Alanine Aminotransferase (ALT/SGPT) 24 U/L (16-63) Alkaline Phosphatase 152 U/L (46-116) Total Protein 7.6 g/dL (6.4-8.2) Albumin 3.8 g/dL (3.4-5.0) Albumin/Globulin Ratio 1.0 (1.0-1.7) Lipase 722 U/L (73-393) Ethyl Alcohol Level < 10 mg/dL (0-10) Glucose (Fingerstick) 113 mg/dL (70-99) Allergies: Coded Allergies: hydrocodone (Verified Allergy, Severe, itching all over body, tolerates Morphine OK, 04/24/15) Iodine and Iodide Containing Produc (Verified Allergy, Intermediate, 11/13/18) fentanyl (Verified Allergy, Intermediate, Nausea and Vomiting, 12/24/15) Medications: Current Medications Medications (Trade) Dose Ordered Sig/[facility] Route PRN Reason Start Time Stop Time Status Last Admin Dose Admin Sodium Chloride 1,000 ml @ 1,000 mls/hr 1X ONCE IV 01/15/19 14:00 01/15/19 14:59 DC 01/15/19 15:03 Morphine Sulfate (Morphine Sulfate) 4 mg 1X ONCE IV 01/15/19 14:00 01/15/19 14:01 DC 01/15/19 15:03 Ondansetron HCl (Zofran) 4 mg 1X ONCE IV 01/15/19 14:00 01/15/19 14:01 DC 01/15/19 15:03 Insulin Human Regular (HumuLIN R VIAL) 8 unit 1X ONCE IV 01/15/19 14:30 01/15/19 14:31 DC 01/15/19 15:03 Imaging: Imaging: CT A/P 01/15 IMPRESSION: Limited evaluation of solid abdominal and pelvic organs due to lack of IV contrast. Findings of stigmata of chronic pancreatitis. Acute on chronic pancreatitis not ruled out. Clinically correlate with pancreatic enzymes. PE: GEN: NAD, drinking ice water in ER, pleasant/cooperative HEENT: Atraumatic, PERRL LUNGS: CTAB HEART: RRR +murm ABD: NABS, S/ND/, epigastric tenderness to LUQ and around flank EXTREMITY: No edema SKIN: No rashes, no jaundice NEURO/PSYCH: A & O �3 A/P: A/P: LUQ pain, h/o pancreatitis - mildly elevated lipase w/ chronic pancreatitis on CT HTN, hyperglycemia/known DM, ?JEAN/CKD, non-compliance H/o heavy alcohol use - sober 1.5 years CRC screen, ?FH colon cancer S/p cholecystectomy -- Apparently tolerating PO at home - okay to also try eating here. Add PPI for recent acid reflux. MOY LOPEZ Jan 15, 2019 16:31
[2019-01-15 16:32] VITALS: BP 139/84
[2019-01-15] MEDS ORDERED: INSULIN LISPRO 300 UNITS/3 ML VIAL. SQ SCH (17:00)
--- NOTE | 2019-01-15 17:03 | PDOC1 ---
History and Physical Date of Admission Date of Admission DATE: 01/15/19 TIME: 17:03 Source Source: Chart review, Patient History of Present Illness History of Present Illness Mr. Buckley is a 43 year old male admit with acute abdominal pain, 10/10 LUQ pain. was severe pain in the ER< after meds, and IV fluid, and NPO for awhile, his pain is much improved and he would like some PO fluids. he had 3 days of pain, thought it would just go away, markedly worse today history of EtOH abuse, none for the past 18 mos. . Patient denies any nausea, vomiting. Denies any exacerbating or relieving factors to his pain. . Denies any chest pain. he works construction in [place] Past Medical History Past Medical History He has uncontrolled diabetes type 2, hypertension, high cholesterol, CHF, tobacco use Cardiovascular: CAD, CHF, HTN, Hyperlipidemia, Other Pulmonary: No pertinent hx CENTRAL NERVOUS SYSTEM: Other GI: No pertinent hx Heme/Onc: No pertinent hx Hepatobiliary: Cholelithiasis Psych: Addictions Musculoskeletal: low back pain Rheumatologic: No pertinent hx Infectious disease: No pertinent hx Renal/: No pertinent hx Endocrine: Other Past Surgical History Past Surgical History: Cholecystectomy Family History Family History: Cancer, Diabetes, Hypertension Social History Smoke: No ALCOHOL: none (for 1.5 years) Drugs: None Current Problem List Problem List Problems Medical Problems: (1) Chronic pancreatitis Status: Acute (2) HTN (hypertension) Status: Acute (3) Hyperglycemia Status: Acute (4) Smoking addiction Status: Acute Current Medications Current Medications Current Medications Sodium Chloride 1,000 ml @ 1,000 mls/hr 1X ONCE IV Last administered on 01/15/19at 15:03; Start 01/15/19 at 14:00; Stop 01/15/19 at 14:59; Status DC Morphine Sulfate (Morphine Sulfate) 4 mg 1X ONCE IV Last administered on 01/15/19at 15:03; Start 01/15/19 at 14:00; Stop 01/15/19 at 14:01; Status DC Ondansetron HCl (Zofran) 4 mg 1X ONCE IV Last administered on 01/15/19at 15:03; Start 01/15/19 at 14:00; Stop 01/15/19 at 14:01; Status DC Sodium Chloride 1,000 ml @ 1,000 mls/hr 1X ONCE IV ; Start 01/15/19 at 14:30; Stop 01/15/19 at 15:29; Status DC Sodium Chloride 1,000 ml @ 1,000 mls/hr 1X ONCE IV ; Start 01/15/19 at 14:30; Stop 01/15/19 at 15:29; Status DC Insulin Human Regular (HumuLIN R VIAL) 8 unit 1X ONCE IV Last administered on 01/15/19at 15:03; Start 01/15/19 at 14:30; Stop 01/15/19 at 14:31; Status DC Ondansetron HCl (Zofran) 4 mg PRN Q8HRS PRN IV NAUSEA/VOMITING; Start 01/15/19 at 15:30; Stop 01/16/19 at 15:29 Morphine Sulfate (Morphine Sulfate) 4 mg PRN Q2HR PRN IV PAIN Last administered on 01/15/19at 16:23; Start 01/15/19 at 15:30; Stop 01/16/19 at 15:29 Insulin Human Lispro (HumaLOG) 0-7 UNITS TIDWMEALS SQ ; Start 01/15/19 at 17:00 Dextrose (Dextrose 50%-Water Syringe) 12.5 gm PRN Q15MIN PRN IV SEE COMMENTS; Start 01/15/19 at 15:30 Sodium Chloride 1,000 ml @ 125 mls/hr 1X ONCE IV Last administered on 01/15/19at 16:23; Start 01/15/19 at 15:30; Stop 01/15/19 at 23:29 Hydralazine HCl (Apresoline Inj) 10 mg 1X ONCE IVP Last administered on 01/15/19at 16:23; Start 01/15/19 at 15:30; Stop 01/15/19 at 15:34; Status DC Pantoprazole Sodium (Protonix) 40 mg DAILYAC PO ; Start 01/16/19 at 07:30 Active Scripts Active Lantus Solostar (Insulin Glargine,Hum.rec.anlog) 100 Unit/1 Ml Insuln.pen 10 Units SQ QHS 30 Days Please dispense #30 pen needles as well 4-6mm range 30-33g Can also sub with any other glargine insulin based on cost. Metformin Hcl 500 Mg Tablet 500 Mg PO BIDWMEALS 30 Days Cozaar (Losartan Potassium) 50 Mg Tablet 50 Mg PO DAILY 30 Days Hydralazine Hcl 50 Mg Tablet 100 Mg PO TID 30 Days Amlodipine Besylate 5 Mg Tablet 10 Mg PO DAILY 30 Days Cyclobenzaprine Hcl 10 Mg Tablet 10 Mg PO TID Aspirin Ec (Aspirin) 81 Mg Tablet.dr 81 Mg PO DAILYAC Allergies Allergies: Coded Allergies: hydrocodone (Verified Allergy, Severe, itching all over body, tolerates Morphine OK, 04/24/15) Iodine and Iodide Containing Produc (Verified Allergy, Intermediate, 11/13/18) fentanyl (Verified Allergy, Intermediate, Nausea and Vomiting, 12/24/15) ROS General: YES: Chills PSYCHOLOGICAL ROS: No: Anxiety, Behavioral Disorder, Concentration difficultie, Decreased libido, Depression, Disorientation, Hallucinations, Hostility, Irritablity, Memory difficulties, Mood Swings, Obsessive thoughts, Physical abuse, Sexual abuse, Sleep disturbances, Suicidal ideation, Other Eyes: No Blurry vision, No Decreased vision, No Double vision, No Dry eyes, No Excessive tearing, No Eye Pain, No Itchy Eyes, No Loss of vision, No Photophobia, No Scotomata, No Uses contacts, No Uses glasses, No Other HEENT: No: Heacaches, Visual Changes, Hearing change, Nasal congestion, Nasal discharge, Oral lesions, Sinus pain, Sore Throat, Epistaxis, Sneezing, Snoring, Tinnitus, Vertigo, Vocal changes, Other Respiratory: No: Cough, Hemoptysis, Orthopnea, Pleuritic Pain, Shortness of breath, SOB with excertion, Sputum Changes, Stridor, Tachypnea, Wheezing, Other Cardiovascular: No Chest Pain, No Palpitations, No Orthopnea, No Paroxysmal Noc. Dyspnea, No Edema, No Lt Headedness, No Other Gastrointestinal: Yes Nausea, Yes Abdominal Pain Genitourinary: No Dysuria, No Frequency, No Incontinence, No Hematuria, No Retention, No Discharge, No Urgency, No Pain, No Flank Pain, No Other, No , No , No , No , No , No , No Musculoskeletal: No Gait Disturbance, No Joint Pain, No Joint Stiffness, No Joint Swelling, No Muscle Pain, No Muscular Weakness, No Pain In:, No Swelling In:, No Other Neurological: No Behavorial Changes, No Bowel/Bladder ControlChng, No Confusion, No Dizziness, No Gait Disturbance, No Headaches, No Impaired Coord/balance, No Memory Loss, No Numbness/Tingling, No Seizures, No Speech Problems, No Tremors, No Visual Changes, No Weakness, No Other Skin: No Dry Skin, No Eczema, No Hair Changes, No Lumps, No Mole Changes, No Mottling, No Nail Changes, No Pruritus, No Rash, No Skin Lesion Changes, No Other, No Acne Physical Exam General: Alert, Cooperative, No acute distress HEENT: PERRLA, EOMI, Mucous membr. moist/pink Heart: S1S2, murmurs Abdomen: Normal bowel sounds, Soft Extremities: No clubbing, No edema Skin: No significant lesion Neuro: Normal gait, Normal speech, Normal tone, Cranial nerves 3-12 NL Psych/Mental Status: Mood NL Vitals Vitals Vital Signs Date Time Temp Pulse Resp B/P (MAP) Pulse Ox O2 Delivery O2 Flow Rate FiO2 01/15/19 16:23 87 163/103 01/15/19 15:03 16 99 Room Air 01/15/19 13:59 98.3 98.3 Labs Labs Laboratory Tests Test 01/15/19 13:55 01/15/19 16:06 White Blood Count 6.0 x10^3/uL (4.0-11.0) Red Blood Count 4.97 x10^6/uL (4.30-5.70) Hemoglobin 13.4 g/dL (13.0-17.5) Hematocrit 40.0 % (39.0-53.0) Mean Corpuscular Volume 81 fL (79-100) Mean Corpuscular Hemoglobin 27 pg (25-35) Mean Corpuscular Hemoglobin Concent 34 g/dL (31-37) Red Cell Distribution Width 13.6 % (11.5-14.5) Platelet Count 196 x10^3/uL (140-400) Neutrophils (%) (Auto) 60 % (31-73) Lymphocytes (%) (Auto) 30 % (24-48) Monocytes (%) (Auto) 8 % (0-9) Eosinophils (%) (Auto) 0 % (0-3) Basophils (%) (Auto) 1 % (0-3) Neutrophils # (Auto) 3.6 x10^3/uL (1.8-7.7) Lymphocytes # (Auto) 1.8 x10^3/uL (1.0-4.8) Monocytes # (Auto) 0.5 x10^3/uL (0.0-1.1) Eosinophils # (Auto) 0.0 x10^3/uL (0.0-0.7) Basophils # (Auto) 0.1 x10^3/uL (0.0-0.2) Sodium Level 132 mmol/L (136-145) Potassium Level 4.2 mmol/L (3.5-5.1) Chloride Level 95 mmol/L (98-107) Carbon Dioxide Level 24 mmol/L (21-32) Anion Gap 13 (6-14) Blood Urea Nitrogen 16 mg/dL (8-26) Creatinine 1.4 mg/dL (0.7-1.3) Estimated GFR (Cockcroft-Gault) 66.9 BUN/Creatinine Ratio 11 (6-20) Glucose Level 566 mg/dL (70-99) Calcium Level 9.1 mg/dL (8.5-10.1) Total Bilirubin 0.4 mg/dL (0.2-1.0) Aspartate Amino Transf (AST/SGOT) 20 U/L (15-37) Alanine Aminotransferase (ALT/SGPT) 24 U/L (16-63) Alkaline Phosphatase 152 U/L (46-116) Total Protein 7.6 g/dL (6.4-8.2) Albumin 3.8 g/dL (3.4-5.0) Albumin/Globulin Ratio 1.0 (1.0-1.7) Lipase 722 U/L (73-393) Ethyl Alcohol Level < 10 mg/dL (0-10) Glucose (Fingerstick) 113 mg/dL (70-99) Laboratory Tests Test 01/15/19 13:55 01/15/19 16:06 White Blood Count 6.0 x10^3/uL (4.0-11.0) Red Blood Count 4.97 x10^6/uL (4.30-5.70) Hemoglobin 13.4 g/dL (13.0-17.5) Hematocrit 40.0 % (39.0-53.0) Mean Corpuscular Volume 81 fL (79-100) Mean Corpuscular Hemoglobin 27 pg (25-35) Mean Corpuscular Hemoglobin Concent 34 g/dL (31-37) Red Cell Distribution Width 13.6 % (11.5-14.5) Platelet Count 196 x10^3/uL (140-400) Neutrophils (%) (Auto) 60 % (31-73) Lymphocytes (%) (Auto) 30 % (24-48) Monocytes (%) (Auto) 8 % (0-9) Eosinophils (%) (Auto) 0 % (0-3) Basophils (%) (Auto) 1 % (0-3) Neutrophils # (Auto) 3.6 x10^3/uL (1.8-7.7) Lymphocytes # (Auto) 1.8 x10^3/uL (1.0-4.8) Monocytes # (Auto) 0.5 x10^3/uL (0.0-1.1) Eosinophils # (Auto) 0.0 x10^3/uL (0.0-0.7) Basophils # (Auto) 0.1 x10^3/uL (0.0-0.2) Sodium Level 132 mmol/L (136-145) Potassium Level 4.2 mmol/L (3.5-5.1) Chloride Level 95 mmol/L (98-107) Carbon Dioxide Level 24 mmol/L (21-32) Anion Gap 13 (6-14) Blood Urea Nitrogen 16 mg/dL (8-26) Creatinine 1.4 mg/dL (0.7-1.3) Estimated GFR (Cockcroft-Gault) 66.9 BUN/Creatinine Ratio 11 (6-20) Glucose Level 566 mg/dL (70-99) Calcium Level 9.1 mg/dL (8.5-10.1) Total Bilirubin 0.4 mg/dL (0.2-1.0) Aspartate Amino Transf (AST/SGOT) 20 U/L (15-37) Alanine Aminotransferase (ALT/SGPT) 24 U/L (16-63) Alkaline Phosphatase 152 U/L (46-116) Total Protein 7.6 g/dL (6.4-8.2) Albumin 3.8 g/dL (3.4-5.0) Albumin/Globulin Ratio 1.0 (1.0-1.7) Lipase 722 U/L (73-393) Ethyl Alcohol Level < 10 mg/dL (0-10) Glucose (Fingerstick) 113 mg/dL (70-99) VTE Prophylaxis Ordered VTE Prophylaxis Devices: No VTE Pharmacological Prophylaxi: Yes Assessment/Plan Assessment/Plan acute abd pain nausea and vomiting pancreatitis acute hyperglycemia in DM2, HONK admit, IV Fluids, correct labs, try clears if pain better YUE BUENROSTRO MD Jan 15, 2019 17:03
[2019-01-15 19:00] VITALS: BP 158/106
[2019-01-15 23:00] VITALS: BP 143/96
[2019-01-16 03:00] VITALS: BP 140/91
[2019-01-16 06:59] LABS: BASO % 1 % (0-3); EOS # 0.1 x10^3/uL (0.0-0.7); EOS % 2 % (0-3); HEMATOCRIT 36.2 % (39.0-53.0); HEMOGLOBIN 11.9 g/dL (13.0-17.5); LYMPH # 1.2 x10^3/uL (1.0-4.8); LYMPH % 41 % (24-48); MEAN CORPUSCULAR HEMOGLOBIN 26 pg (25-35); MEAN CORPUSCULAR HGB CONC 33 g/dL (31-37); MEAN CORPUSCULAR VOLUME 80 fL (79-100); MONO # 0.3 x10^3/uL (0.0-1.1); MONO % 11 % (0-9); NEUT # 1.3 x10^3/uL (1.8-7.7); NEUT % 45 % (31-73); PLATELET COUNT 164 x10^3/uL (140-400); RED BLOOD COUNT 4.53 x10^6/uL (4.30-5.70); RED CELL DISTRIBUTION WIDTH 13.9 % (11.5-14.5); WHITE BLOOD COUNT 2.9 x10^3/uL (4.0-11.0)
[2019-01-16 07:00] VITALS: BP 147/100
[2019-01-16 07:28] LABS: ALBUMIN/GLOBULIN RATIO 0.9 (1.0-1.7); CALCIUM 8.5 mg/dL (8.5-10.1); CREATININE 0.7 mg/dL (0.7-1.3); GFR 148.9; POTASSIUM 4.1 mmol/L (3.5-5.1); TOTAL BILIRUBIN 0.7 mg/dL (0.2-1.0); TOTAL PROTEIN 6.3 g/dL (6.4-8.2)
[2019-01-16] MEDS ORDERED: PANTOPRAZOLE 40 MG TABLET.DR. PO SCH (07:30)
[2019-01-16] MEDS ORDERED: ONDANSETRON PF 4 MG/2 ML VIAL. IV PRN (08:45)
[2019-01-16] MEDS ORDERED: traMADol 50 MG TABLET PO PRN (08:45)
[2019-01-16] MEDS ORDERED: DEXTROSE 50% 25 GM / 50ML DISP.SYRIN. IV PRN (08:45)
[2019-01-16] MEDS ORDERED: IV DEXTROSE 5% 250 ML BAG. IV PRN (08:45)
[2019-01-16] MEDS ORDERED: PANT40TA77 PO (08:50)
[2019-01-16] MEDS ORDERED: CHLO1CAP50 PO (08:50)
[2019-01-16] MEDS ORDERED: amLODIPine BESYLATE 10 MG TABLET PO SCH (09:00)
[2019-01-16] MEDS ORDERED: CHLORDIAZEPOXIDE/CLIDINIUM 5MG/2.5MG CAPSULE. PO PRN (09:00)
[2019-01-16] MEDS ORDERED: ASPIRIN ENTERIC COATED 81 MG TABLET.DR. PO SCH (09:00)
[2019-01-16] MEDS ORDERED: LOSARTAN POTASSIUM 50 MG TABLET. PO SCH (09:00)
--- NOTE | 2019-01-16 10:42 | PDOC ---
Subjective: Subjective: Feels much better, would like to go home. Tolerating PO, no abd pain. RUQ felt "funny" yesterday in ER after morphine. Objective: Vital Signs: Vital Signs Date Time Temp Pulse Resp B/P (MAP) Pulse Ox O2 Delivery O2 Flow Rate FiO2 01/16/19 07:00 97.6 61 16 147/100 (116) 100 Room Air 97.6 Labs: Laboratory Tests Test 01/15/19 13:55 01/15/19 16:06 01/15/19 21:06 01/16/19 06:35 White Blood Count 6.0 x10^3/uL 2.9 x10^3/uL Red Blood Count 4.97 x10^6/uL 4.53 x10^6/uL Hemoglobin 13.4 g/dL 11.9 g/dL Hematocrit 40.0 % 36.2 % Mean Corpuscular Volume 81 fL 80 fL Mean Corpuscular Hemoglobin 27 pg 26 pg Mean Corpuscular Hemoglobin Concent 34 g/dL 33 g/dL Red Cell Distribution Width 13.6 % 13.9 % Platelet Count 196 x10^3/uL 164 x10^3/uL Neutrophils (%) (Auto) 60 % 45 % Lymphocytes (%) (Auto) 30 % 41 % Monocytes (%) (Auto) 8 % 11 % Eosinophils (%) (Auto) 0 % 2 % Basophils (%) (Auto) 1 % 1 % Neutrophils # (Auto) 3.6 x10^3/uL 1.3 x10^3/uL Lymphocytes # (Auto) 1.8 x10^3/uL 1.2 x10^3/uL Monocytes # (Auto) 0.5 x10^3/uL 0.3 x10^3/uL Eosinophils # (Auto) 0.0 x10^3/uL 0.1 x10^3/uL Basophils # (Auto) 0.1 x10^3/uL 0.0 x10^3/uL Sodium Level 132 mmol/L 139 mmol/L Potassium Level 4.2 mmol/L 4.1 mmol/L Chloride Level 95 mmol/L 106 mmol/L Carbon Dioxide Level 24 mmol/L 26 mmol/L Anion Gap 13 7 Blood Urea Nitrogen 16 mg/dL 10 mg/dL Creatinine 1.4 mg/dL 0.7 mg/dL Estimated GFR (Cockcroft-Gault) 66.9 148.9 BUN/Creatinine Ratio 11 14 Glucose Level 566 mg/dL 228 mg/dL Calcium Level 9.1 mg/dL 8.5 mg/dL Total Bilirubin 0.4 mg/dL 0.7 mg/dL Aspartate Amino Transf (AST/SGOT) 20 U/L 323 U/L Alanine Aminotransferase (ALT/SGPT) 24 U/L 214 U/L Alkaline Phosphatase 152 U/L 180 U/L Total Protein 7.6 g/dL 6.3 g/dL Albumin 3.8 g/dL 3.0 g/dL Albumin/Globulin Ratio 1.0 0.9 Lipase 722 U/L 350 U/L Ethyl Alcohol Level < 10 mg/dL Glucose (Fingerstick) 113 mg/dL 290 mg/dL Test 01/16/19 07:45 Glucose (Fingerstick) 199 mg/dL PE: GEN: NAD LUNGS: CTAB HEART: RRR ABD: S/ND/NT NEURO/PSYCH: A & O �3 A/P: LUQ pain- resolved Chronic pancreatitis HTN, DM, non-compliance -- LFTs up today - h/o cholelithiasis so will check US - if unrevealing, ?MOY FISH Jan 16, 2019 10:42
[2019-01-16 11:00] VITALS: BP 149/92
[2019-01-16] MEDS: CYCLOBENZAPRINE 10 MG TABLET. PO SCH ×2 (12:32→17:25)
[2019-01-16] MEDS: metFORMIN 500 MG TABLET PO SCH ×2 (12:32→17:27)
[2019-01-16] MEDS: INSULIN LISPRO 300 UNITS/3 ML VIAL. SQ SCH ×2 (12:35→17:00)
--- NOTE | 2019-01-16 12:57 | PDOC3 ---
Discharge Summary Visit Information Date of Admission: Jan 15, 2019 Date of Discharge: Jan 16, 2019 Admitting Diagnosis Comment: acute abd pain nausea and vomiting pancreatitis acute hyperglycemia in DM2, HONK ex etoh drinker - sober over a yr Final Diagnosis Problems Medical Problems: (1) Chronic pancreatitis Status: Acute (2) HTN (hypertension) Status: Acute (3) Hyperglycemia Status: Acute (4) Smoking addiction Status: Acute Brief Hospital Course Allergies Allergies Coded Allergies Type Severity Reaction Last Updated Verified hydrocodone Allergy Severe itching all over body, tolerates Morphine OK 04/24/15 Yes Iodine and Iodide Containing Produc Allergy Intermediate 11/13/18 Yes fentanyl Allergy Intermediate Nausea and Vomiting 12/24/15 Yes Vital Signs Vital Signs Date Time Temp Pulse Resp B/P (MAP) Pulse Ox O2 Delivery O2 Flow Rate FiO2 01/16/19 12:35 60 149/92 01/16/19 11:00 97.8 16 98 Room Air 97.8 Lab Results Laboratory Tests Test 01/15/19 13:55 01/15/19 16:06 01/15/19 21:06 01/16/19 06:35 White Blood Count 6.0 x10^3/uL (4.0-11.0) 2.9 x10^3/uL (4.0-11.0) Red Blood Count 4.97 x10^6/uL (4.30-5.70) 4.53 x10^6/uL (4.30-5.70) Hemoglobin 13.4 g/dL (13.0-17.5) 11.9 g/dL (13.0-17.5) Hematocrit 40.0 % (39.0-53.0) 36.2 % (39.0-53.0) Mean Corpuscular Volume 81 fL (79-100) 80 fL (79-100) Mean Corpuscular Hemoglobin 27 pg (25-35) 26 pg (25-35) Mean Corpuscular Hemoglobin Concent 34 g/dL (31-37) 33 g/dL (31-37) Red Cell Distribution Width 13.6 % (11.5-14.5) 13.9 % (11.5-14.5) Platelet Count 196 x10^3/uL (140-400) 164 x10^3/uL (140-400) Neutrophils (%) (Auto) 60 % (31-73) 45 % (31-73) Lymphocytes (%) (Auto) 30 % (24-48) 41 % (24-48) Monocytes (%) (Auto) 8 % (0-9) 11 % (0-9) Eosinophils (%) (Auto) 0 % (0-3) 2 % (0-3) Basophils (%) (Auto) 1 % (0-3) 1 % (0-3) Neutrophils # (Auto) 3.6 x10^3/uL (1.8-7.7) 1.3 x10^3/uL (1.8-7.7) Lymphocytes # (Auto) 1.8 x10^3/uL (1.0-4.8) 1.2 x10^3/uL (1.0-4.8) Monocytes # (Auto) 0.5 x10^3/uL (0.0-1.1) 0.3 x10^3/uL (0.0-1.1) Eosinophils # (Auto) 0.0 x10^3/uL (0.0-0.7) 0.1 x10^3/uL (0.0-0.7) Basophils # (Auto) 0.1 x10^3/uL (0.0-0.2) 0.0 x10^3/uL (0.0-0.2) Sodium Level 132 mmol/L (136-145) 139 mmol/L (136-145) Potassium Level 4.2 mmol/L (3.5-5.1) 4.1 mmol/L (3.5-5.1) Chloride Level 95 mmol/L (98-107) 106 mmol/L (98-107) Carbon Dioxide Level 24 mmol/L (21-32) 26 mmol/L (21-32) Anion Gap 13 (6-14) 7 (6-14) Blood Urea Nitrogen 16 mg/dL (8-26) 10 mg/dL (8-26) Creatinine 1.4 mg/dL (0.7-1.3) 0.7 mg/dL (0.7-1.3) Estimated GFR (Cockcroft-Gault) 66.9 148.9 BUN/Creatinine Ratio 11 (6-20) 14 (6-20) Glucose Level 566 mg/dL (70-99) 228 mg/dL (70-99) Calcium Level 9.1 mg/dL (8.5-10.1) 8.5 mg/dL (8.5-10.1) Total Bilirubin 0.4 mg/dL (0.2-1.0) 0.7 mg/dL (0.2-1.0) Aspartate Amino Transf (AST/SGOT) 20 U/L (15-37) 323 U/L (15-37) Alanine Aminotransferase (ALT/SGPT) 24 U/L (16-63) 214 U/L (16-63) Alkaline Phosphatase 152 U/L (46-116) 180 U/L (46-116) Total Protein 7.6 g/dL (6.4-8.2) 6.3 g/dL (6.4-8.2) Albumin 3.8 g/dL (3.4-5.0) 3.0 g/dL (3.4-5.0) Albumin/Globulin Ratio 1.0 (1.0-1.7) 0.9 (1.0-1.7) Lipase 722 U/L (73-393) 350 U/L (73-393) Ethyl Alcohol Level < 10 mg/dL (0-10) Glucose (Fingerstick) 113 mg/dL (70-99) 290 mg/dL (70-99) Test 01/16/19 07:45 01/16/19 11:02 Glucose (Fingerstick) 199 mg/dL (70-99) 270 mg/dL (70-99) Laboratory Tests Test 01/15/19 13:55 01/15/19 16:06 01/15/19 21:06 01/16/19 06:35 White Blood Count 6.0 x10^3/uL (4.0-11.0) 2.9 x10^3/uL (4.0-11.0) Red Blood Count 4.97 x10^6/uL (4.30-5.70) 4.53 x10^6/uL (4.30-5.70) Hemoglobin 13.4 g/dL (13.0-17.5) 11.9 g/dL (13.0-17.5) Hematocrit 40.0 % (39.0-53.0) 36.2 % (39.0-53.0) Mean Corpuscular Volume 81 fL (79-100) 80 fL (79-100) Mean Corpuscular Hemoglobin 27 pg (25-35) 26 pg (25-35) Mean Corpuscular Hemoglobin Concent 34 g/dL (31-37) 33 g/dL (31-37) Red Cell Distribution Width 13.6 % (11.5-14.5) 13.9 % (11.5-14.5) Platelet Count 196 x10^3/uL (140-400) 164 x10^3/uL (140-400) Neutrophils (%) (Auto) 60 % (31-73) 45 % (31-73) Lymphocytes (%) (Auto) 30 % (24-48) 41 % (24-48) Monocytes (%) (Auto) 8 % (0-9) 11 % (0-9) Eosinophils (%) (Auto) 0 % (0-3) 2 % (0-3) Basophils (%) (Auto) 1 % (0-3) 1 % (0-3) Neutrophils # (Auto) 3.6 x10^3/uL (1.8-7.7) 1.3 x10^3/uL (1.8-7.7) Lymphocytes # (Auto) 1.8 x10^3/uL (1.0-4.8) 1.2 x10^3/uL (1.0-4.8) Monocytes # (Auto) 0.5 x10^3/uL (0.0-1.1) 0.3 x10^3/uL (0.0-1.1) Eosinophils # (Auto) 0.0 x10^3/uL (0.0-0.7) 0.1 x10^3/uL (0.0-0.7) Basophils # (Auto) 0.1 x10^3/uL (0.0-0.2) 0.0 x10^3/uL (0.0-0.2) Sodium Level 132 mmol/L (136-145) 139 mmol/L (136-145) Potassium Level 4.2 mmol/L (3.5-5.1) 4.1 mmol/L (3.5-5.1) Chloride Level 95 mmol/L (98-107) 106 mmol/L (98-107) Carbon Dioxide Level 24 mmol/L (21-32) 26 mmol/L (21-32) Anion Gap 13 (6-14) 7 (6-14) Blood Urea Nitrogen 16 mg/dL (8-26) 10 mg/dL (8-26) Creatinine 1.4 mg/dL (0.7-1.3) 0.7 mg/dL (0.7-1.3) Estimated GFR (Cockcroft-Gault) 66.9 148.9 BUN/Creatinine Ratio 11 (6-20) 14 (6-20) Glucose Level 566 mg/dL (70-99) 228 mg/dL (70-99) Calcium Level 9.1 mg/dL (8.5-10.1) 8.5 mg/dL (8.5-10.1) Total Bilirubin 0.4 mg/dL (0.2-1.0) 0.7 mg/dL (0.2-1.0) Aspartate Amino Transf (AST/SGOT) 20 U/L (15-37) 323 U/L (15-37) Alanine Aminotransferase (ALT/SGPT) 24 U/L (16-63) 214 U/L (16-63) Alkaline Phosphatase 152 U/L (46-116) 180 U/L (46-116) Total Protein 7.6 g/dL (6.4-8.2) 6.3 g/dL (6.4-8.2) Albumin 3.8 g/dL (3.4-5.0) 3.0 g/dL (3.4-5.0) Albumin/Globulin Ratio 1.0 (1.0-1.7) 0.9 (1.0-1.7) Lipase 722 U/L (73-393) 350 U/L (73-393) Ethyl Alcohol Level < 10 mg/dL (0-10) Glucose (Fingerstick) 113 mg/dL (70-99) 290 mg/dL (70-99) Test 01/16/19 07:45 01/16/19 11:02 Glucose (Fingerstick) 199 mg/dL (70-99) 270 mg/dL (70-99) Brief Hospital Course Mr. Loo is a 43 old AA male, admitted for acute pancreatitis and lipase normalized the next day and tolerated pO,. CT shows chjronic pancreatitis, sober x 1 yr, DM HONK initially, likely caused flare of pancreatitis, but we just resumed home insulin and pancreatitis got better REquested work excuse IF SOno neg, home later Consults; GI PRoc, CT abd and sono dc < 30 Discharge Information Condition at Discharge: Improved, Stable Disposition/Orders: D/C to Home Scheduled Amlodipine Besylate (Amlodipine Besylate) 5 Mg Tablet, 10 MG PO DAILY for HTN for 30 Days, #60 Ref 2 Prescribed by: FAITH AGUIAR MD on 11/14/181153 Last Action: Continued on 01/16/19845 by EMMY SANCHEZ Aspirin (Aspirin Ec) 81 Mg Tablet.dr, 81 MG PO DAILYAC, #30 Prescribed by: WALKER JHAVERI MD on 04/16/161150 Last Action: Continued on 01/16/19845 by EMMY SANCHEZ Cyclobenzaprine Hcl (Cyclobenzaprine Hcl) 10 Mg Tablet, 10 MG PO TID, #20 Prescribed by: WALKER JHAVERI MD on 04/16/161150 Last Action: Continued on 01/16/19845 by EMMY SANCHEZ Hydralazine Hcl (Hydralazine Hcl) 50 Mg Tablet, 100 MG PO TID for HTN for 30 Days, #180 Ref 2 Prescribed by: FAITH AGUIAR MD on 11/14/181153 Last Action: Continued on 01/16/19845 by EMMY SANCHEZ Insulin Glargine,Hum.rec.anlog (Lantus Solostar) 100 Unit/1 Ml Insuln.pen, 10 UNITS SQ QHS for DM2 for 30 Days, #1 Ref 2 Please dispense #30 pen needles as well 4-6mm range 30-33g Can also sub with any other glargine insulin based on cost. Prescribed by: FAITH AGUIAR MD on 11/14/181153 Last Action: Converted on 01/16/19845 by EMMY SANCHEZ Losartan Potassium (Cozaar ) 50 Mg Tablet, 50 MG PO DAILY for HTN/DM2 for 30 Days, #30 Ref 2 Prescribed by: FAITH AGUIAR MD on 11/14/181153 Last Action: Continued on 01/16/19845 by EMMY SANCHEZ Metformin Hcl (Metformin Hcl) 500 Mg Tablet, 500 MG PO BIDWMEALS for ANTI- DIABETIC for 30 Days, #60 Ref 2 Prescribed by: FAITH AGUIAR MD on 11/14/181153 Last Action: Continued on 01/16/19845 by EMMY SANCHEZ Pantoprazole Sodium (Pantoprazole Sodium ) 40 Mg Tablet.dr, 40 MG PO DAILYAC for gerd, #30 Prescribed by: EMMY SANCHEZ on 01/16/19 0850 Scheduled PRN Chlordiazepoxide/Clidinium Br (Chlordiazepoxide-Clidinium Cap) 1 Each Capsule, 1 CAP PO PRN QID PRN for STOMACH CRAMPING, #20 Prescribed by: EMMY SANCHEZ on 01/16/19 0850 EMMY SANCHEZ MD Jan 16, 2019 12:57
[2019-01-16 15:00] VITALS: BP 164/99
--- NOTE | 2019-01-16 16:04 | RAD ---
Examination: ABDOMEN COMPLETE History: Elevated liver function enzymes Comparison/Correlation: 01/15/2019 CT abdomen and pelvis without contrast Findings: Upper abdominal ultrasound exam was performed. Cholecystectomy noted. Common bile duct diameter of 0.6 cm noted. No intrahepatic biliary dilatation. Hepatic echotexture is normal. Pancreatic ductal dilatation is present. Calcific effusions noted. No upper abdominal ascites. Spleen is unremarkable. Abdominal aorta and inferior vena cava are unremarkable. The graft pancreatic ductal prominence is noted. Heterogeneous appearance of the pancreatic echotexture is evident. Calcification of the pancreas noted. Impression: No biliary dilatation. Findings of chronic pancreatitis. Electronically signed by: Keaton Linda MD (01/16/2019 4:01 PM) [facility]
[2019-01-16 17:25] VITALS: BP 164/99
--- NOTE | 2019-01-16 17:35 | NUR ---
REPORT OF U/S CALLED TO GINETTE KEANE TO DISCHARGE PATIENT TO HOME AND NO NEED TO CALL GI, ORDERS AND PRESCRIPTIONS ON THE CHART, PATIENT INFORMED AND DISCHARGE PAPERWORK PREPARED. SALINE LOCK REMOVED PER FOOD MIXER ASSEMBLER, ALL PERSONAL BELONGINGS GATHERED BY THE PATIENT AND PLACED IN BAGS FOR DISCHARGE.
--- NOTE | 2019-01-16 18:10 | NUR ---
PATIENT LEAVES THE UNIT (AMBULATES) ALONGSIDE CAMPGROUND MANAGER ON THE UNIT, EMOTIONAL SUPPORT GIVEN, FOLLOW UP APPOINTMENTS ENCOURAGED.
[2019-01-16] MEDS ORDERED: INSULIN GLARGINE SYRINGE. SQ SCH (21:00)
[2019-01-18 04:09] LABS: HEMOGLOBIN A1C >15.5 % (4.8-5.6)
--- NOTE | 2019-01-18 17:48 | RAD ---
CT study of the abdomen and pelvis without contrast Clinical indications: Left upper quadrant pain. History of pancreatitis. History of allergy to iodine. TECHNIQUE: Noncontrast helical CT scanning of the abdomen and pelvis formed. Without contrast, the sensitivity to detect organ pathology and GI tract pathology is decreased. PQRS compliance Statement One or more of the following individualized dose reduction techniques were utilized for this study: 1. Automated exposure control 2. Adjustment of the mA and/or kV according to patient size 3. Use of iterative reconstruction technique COMPARISON: November 13, 2018. FINDINGS: The spleen is not enlarged. The liver is homogeneous in appearance on this noncontrast study. Multiple calcifications of the pancreas are seen consistent with chronic pancreatitis. No focal pancreatic enlargement is seen. No progressive dilatation of the main pancreatic duct is evident. No new peripancreatic soft tissue edema or fluid or pseudocyst is seen. No dilatation of the extrahepatic biliary tree is seen. The gallbladder is surgically absent. No focal aneurysmal dilatation of the abdominal aorta is seen. No enlarged abdominal or pelvic lymphadenopathy is evident. Urinary bladder wall is smooth. No renal mass is seen on this noncontrast study. No renal stone or ureteral stone or hydronephrosis or hydroureter is seen. The appendix is normal. No obstructive bowel pattern is evident. No free air or free fluid or mesenteric edema is seen. No lung base consolidation is evident. No lytic process is seen. IMPRESSION: Calcific chronic pancreatitis. No peripancreatic edema or free fluid or pseudocyst is evident. No new focal enlargement of the pancreas is evident. Stable study. No acute abnormality of the abdomen or pelvis. Electronically signed by: Francisco Boogie MD (01/18/2019 5:45 PM) [place] [id number]
== END 2019-01-16 18:10 | disposition home or self-care (01) | DRG 638 ==
LOC: ER 13:13 → 5 SOUTH 15:20
PROVIDERS: ADMIT Internal Medicine; ATTEND Internal Medicine
DX: E11.65 Type 2 diabetes mellitus with hyperglycemia (principal); K86.1 Other chronic pancreatitis; E78.00 Pure hypercholesterolemia, unspecified; F17.210 Nicotine dependence, cigarettes, uncomplicated; I50.9 Heart failure, unspecified; I11.0 Hypertensive heart disease with heart failure; K76.0 Fatty (change of) liver, not elsewhere classified; I34.0 Nonrheumatic mitral (valve) insufficiency; I27.20 Pulmonary hypertension, unspecified; I25.10 Atherosclerotic heart disease of native coronary artery without angina pectoris; K21.9 Gastro-esophageal reflux disease without esophagitis; E78.5 Hyperlipidemia, unspecified; Z88.8 Allergy status to other drugs, medicaments and biological substances; Z88.6 Allergy status to analgesic agent; Z91.041 Radiographic dye allergy status; Z90.49 Acquired absence of other specified parts of digestive tract; Z83.3 Family history of diabetes mellitus; Z82.49 Family history of ischemic heart disease and other diseases of the circulatory system; Z91.19 Patient's noncompliance with other medical treatment and regimen; Z79.4 Long term (current) use of insulin; Z79.899 Other long term (current) drug therapy
CPT/HCPCS: 36415; 74176; 76700; 80053; 82962; 83036; 83690; 85025; G0480; J0360; J1815; J2270; J2405; J7030; 99285-25; G0378

== ENCOUNTER 2019-03-28 18:26 | Inpatient (IN) | payer BC ==
[~2019-03-28] VITALS: Ht 175.3 cm; Wt 79.5 kg
[~2019-03-28 18:26] MED LIST changes: +CHLO1CAP50 PO
--- NOTE | 2019-03-28 19:24 | PHYS DOC ---
Past Medical History Past Medical History: CHF, Diabetes-Type II, High Cholesterol, Hypertension, Pancreatitis Additional Past Medical Histor: " LEAKY VALVE" Past Surgical History: Cholecystectomy Additional Past Surgical Histo: cardiac cath with stent placement Alcohol Use: Sober Drug Use: None Adult General Chief Complaint Chief Complaint: ABDOMINAL PAIN HPI HPI 43-year-old male presents to the emergency room complaints of abdominal pain epigastric radiation to the left. Patient is well describes nausea, vomiting, diarrhea, decreased appetite. Patient has underlying history of pancreatitis however has not drank in over 1.5 years. He states symptoms started on Tuesday or Tuesday he states he went to urgent care at that time. Patient denies any fever or chills. Given his continued pain, decreased appetite and inability to take by mouth he presented to the ER for further evaluation. Patient's underlying history of diabetes, pancreatitis, hypertension. Nothing makes his symptoms worse, nothing makes his symptoms better. Review of Systems Review of Systems Constitutional: Denies fever or chills [] Respiratory: Denies cough or shortness of breath [] Cardiovascular: No additional information not addressed in HPI [] GI: + abdominal pain, nausea, vomiting,diarrhea [] : Denies dysuria or hematuria [] Musculoskeletal: Denies back pain or joint pain [] Integument: Denies rash or skin lesions [] Neurologic: Denies headache, focal weakness or sensory changes [] All other systems were reviewed and found to be within normal limits, except as documented in this note. Current Medications Current Medications Current Medications Medications (Trade) Dose Ordered Sig/[facility] Start Time Stop Time Status Last Admin Dose Admin Heparin Sodium (Porcine) (Heparin Sodium) 4,000 unit 1X ONCE 03/28/19 20:30 03/28/19 20:31 DC 03/28/19 20:35 4,000 UNIT Morphine Sulfate (Morphine Sulfate) 4 mg PRN Q15MIN PRN 03/28/19 19:30 03/29/19 19:29 03/28/19 19:47 4 MG Nitroglycerin (Nitrostat) 0.4 mg PRN Q5MIN PRN 03/28/19 20:45 03/28/19 20:57 0.4 MG Ondansetron HCl (Zofran) 4 mg 1X ONCE 03/28/19 19:45 03/28/19 19:46 DC 03/28/19 19:47 4 MG Sodium Chloride 1,000 ml @ 1,000 mls/hr Q1H 03/28/19 19:30 03/28/19 20:29 DC 03/28/19 19:46 1,000 MLS/HR Allergies Allergies Allergies Coded Allergies Type Severity Reaction Last Updated Verified hydrocodone Allergy Severe itching all over body, tolerates Morphine OK 04/24/15 Yes Iodine and Iodide Containing Produc Allergy Intermediate 11/13/18 Yes fentanyl Allergy Intermediate Nausea and Vomiting 12/24/15 Yes Physical Exam Physical Exam Constitutional: Well developed, well nourished, no acute distress, non-toxic appearance. [] HENT: Normocephalic, atraumatic, bilateral external ears normal, oropharynx moist, no oral exudates, nose normal. [] Eyes: PERRLA, EOMI, conjunctiva normal, no discharge. [] Cardiovascular: Tachycardia Lungs & Thorax: Bilateral breath sounds clear to auscultation [] Abdomen: Tenderness to epigastric and left upper quadrant, no radiation, no mass, positive bowel sounds Skin: Warm, dry, no erythema, no rash. [] Back: No tenderness, no CVA tenderness. [] Extremities: No tenderness, no edema. [] Neurologic: Alert and oriented X 3, no focal deficits noted. [] Psychologic: Affect normal, judgement normal, mood normal. [] Current Patient Data Vital Signs Vital Signs Date Time Temp Pulse Resp B/P (MAP) Pulse Ox O2 Delivery O2 Flow Rate FiO2 03/28/19 20:14 100 17 149/98 (115) 97 Room Air 03/28/19 19:20 99.1 99.1 Lab Values Laboratory Tests Test 03/28/19 19:40 White Blood Count 8.9 x10^3/uL (4.0-11.0) Red Blood Count 4.79 x10^6/uL (4.30-5.70) Hemoglobin 12.5 g/dL (13.0-17.5) L Hematocrit 37.7 % (39.0-53.0) L Mean Corpuscular Volume 79 fL (79-100) Mean Corpuscular Hemoglobin 26 pg (25-35) Mean Corpuscular Hemoglobin Concent 33 g/dL (31-37) Red Cell Distribution Width 13.6 % (11.5-14.5) Platelet Count 223 x10^3/uL (140-400) Neutrophils (%) (Auto) 60 % (31-73) Lymphocytes (%) (Auto) 31 % (24-48) Monocytes (%) (Auto) 8 % (0-9) Eosinophils (%) (Auto) 1 % (0-3) Basophils (%) (Auto) 1 % (0-3) Neutrophils # (Auto) 5.3 x10^3/uL (1.8-7.7) Lymphocytes # (Auto) 2.7 x10^3/uL (1.0-4.8) Monocytes # (Auto) 0.7 x10^3/uL (0.0-1.1) Eosinophils # (Auto) 0.0 x10^3/uL (0.0-0.7) Basophils # (Auto) 0.1 x10^3/uL (0.0-0.2) Sodium Level 134 mmol/L (136-145) L Potassium Level 3.8 mmol/L (3.5-5.1) Chloride Level 96 mmol/L (98-107) L Carbon Dioxide Level 26 mmol/L (21-32) Anion Gap 12 (6-14) Blood Urea Nitrogen 20 mg/dL (8-26) Creatinine 1.3 mg/dL (0.7-1.3) Estimated GFR (Cockcroft-Gault) 72.9 BUN/Creatinine Ratio 15 (6-20) Glucose Level 288 mg/dL (70-99) H Calcium Level 9.3 mg/dL (8.5-10.1) Total Bilirubin 0.6 mg/dL (0.2-1.0) Aspartate Amino Transferase (AST) 98 U/L (15-37) H Alanine Aminotransferase (ALT) 18 U/L (16-63) Alkaline Phosphatase 111 U/L (46-116) Troponin I Quantitative 20.381 ng/mL (0.000-0.055) Total Protein 7.9 g/dL (6.4-8.2) Albumin 4.1 g/dL (3.4-5.0) Albumin/Globulin Ratio 1.1 (1.0-1.7) Lipase 207 U/L (73-393) Laboratory Tests 03/28/19 19:40 Laboratory Tests 03/28/19 19:40 EKG EKG EKG reviewed 2019, heart rate 96, normal axis, evidence of ST elevation V2, V3, V4, ST depression V5 V6 concerning for STEMI[] Radiology/Procedures Radiology/Procedures [facility] [address] [place], [place] [id number] IMAGING REPORT Signed PATIENT: JONG PINO GACCOUNT: [id number] : 1975 LOCATION: ER AGE: 43 SEX: M EXAM STATUS: REG ER ORD. PHYSICIAN: LONG SANCHEZ MD REASON: epigastric/abd pain, history of pancreatitis PROCEDURE: CT ABDOMEN PELVIS WO CONTRAST CT ABDOMEN PELVIS WO CONTRAST INDICATION: Epigastric pain, history of pancreatic EXAM: Noncontrast CT of the abdomen and pelvis. Coronal and sagittal reformatted images were performed. PQRS compliance statement: One or more of the following individualized dose reduction techniques were utilized for this examination: 1. Automated exposure control 2. Adjustment of the mA and/or kV according to patient size 3. Use of iterative reconstruction technique COMPARISON: 01/15/2019 FINDINGS: No free air, free fluid, or fluid collection. Lower chest: The visualized lower lungs are aerated. No pleural or pericardial effusion. ABDOMEN: Liver: The noncontrast liver is homogeneous in attenuation. Gallbladder and biliary: Cholecystectomy. Normal caliber bile ducts. Spleen: Normal spleen. Pancreas: Numerous punctate pancreatic calcifications. No peripancreatic inflammation or fluid collection Adrenal glands: Normal adrenal glands. Kidneys and ureters: No opaque urinary calculi. Normal kidneys and ureters. GI tract: The stomach is decompressed and poorly evaluated. Normal caliber small bowel and colon. Normal appendix. Vascular structures: Mild aortoiliac atherosclerotic disease Lymph nodes: No lymphadenopathy in the abdomen or pelvis. PELVIS: Genitourinary system: Normal bladder. Normal prostate gland and seminal vesicles. SKELETAL STRUCTURES AND SOFT TISSUES: No fracture or destructive lesion in the visualized skeleton. IMPRESSION: Numerous punctate pancreatic calcifications consistent with chronic pancreatitis. No peripancreatic inflammation or fluid collection. Electronically signed by: Janell Antonio MD (03/28/2019 9:33 PM) [facility] DICTATED and SIGNED BY: JANELL ANTONIO MD DATE: 03/28/192132 [] Course & Med Decision Making Course & Med Decision Making Pertinent Labs and Imaging studies reviewed. (See chart for details) []43-year-old male presents to the emergency room complaints of abdominal pain epigastric radiation to the left. Patient is well describes nausea, vomiting, diarrhea, decreased appetite. Patient has underlying history of pancreatitis however has not drank in over 1.5 years. He states symptoms started on Tuesday or Tuesday he states he went to urgent care at that time. Patient denies any fever or chills. Given his continued pain, decreased appetite and inability to take by mouth he presented to the ER for further evaluation. Patient's underlying history of diabetes, pancreatitis, hypertension. Nothing makes his symptoms worse, nothing makes his symptoms better. Critical lab reported of troponin 20, EKG obtained with a STEMI called at 2025 Discussion with cardiology 2034 no evidence of STEMI, J-point elevation per Dr. Matthew Heparin bolus 4000 mg, heparin drip initiated, aspirin 324 provided by mouth. Plan to trend enzymes per cardiology, he will plan for cardiac catheterization, if troponin continues to rise he'll be taken to cardiac Coping Machine Assembler tonight per Dr. Matthew Lipase normal Morphine 4mg IV, NTG SL Plan admit to Hospitalist Discussed case with patient at bedside Dragon Disclaimer Dragon Disclaimer This electronic medical record was generated, in whole or in part, using a voice recognition dictation system. Departure Departure Impression: Primary Impression: Epigastric abdominal pain Additional Impressions: Elevated troponin HTN (hypertension) Diabetes Disposition: ADMITTED INPATIENT Admitting Physician: JASWINDER Condition: STABLE Referrals: NO PCP (PCP) Critical Care Time Critical care time was 35 minutes exclusive of procedures. Problem Qualifiers Additional Impressions: HTN (hypertension) Hypertension type: essential hypertension Qualified Codes: I10 - Essential (primary) hypertension Diabetes Diabetes mellitus type: type 2 Diabetes mellitus ferry terminal supervisor insulin use: with ferry terminal supervisor use Diabetes mellitus complication status: without complication Qualified Codes: E11.9 - Type 2 diabetes mellitus without complications; Z79.4 - medical terminologist (current) use of insulin LONG SANCHEZ MD Mar 28, 2019 19:24
[2019-03-28] MEDS ORDERED: MORPHINE SULFATE 4 MG/ML VIAL. IV/SQ PRN (19:30)
[2019-03-28] MEDS ORDERED: IV NORMAL SALINE 1000ML BAG 1,000 ML IV SCH (19:30)
[2019-03-28] MEDS ORDERED: ONDANSETRON PF 4 MG/2 ML VIAL. IV ONE (19:45)
[2019-03-28 19:49] LABS: BASO # 0.1 x10^3/uL (0.0-0.2); BASO % 1 % (0-3); EOS % 1 % (0-3); HEMATOCRIT 37.7 % (39.0-53.0); HEMOGLOBIN 12.5 g/dL (13.0-17.5); LYMPH # 2.7 x10^3/uL (1.0-4.8); LYMPH % 31 % (24-48); MEAN CORPUSCULAR HEMOGLOBIN 26 pg (25-35); MEAN CORPUSCULAR HGB CONC 33 g/dL (31-37); MEAN CORPUSCULAR VOLUME 79 fL (79-100); MONO # 0.7 x10^3/uL (0.0-1.1); MONO % 8 % (0-9); NEUT # 5.3 x10^3/uL (1.8-7.7); NEUT % 60 % (31-73); PLATELET COUNT 223 x10^3/uL (140-400); RED BLOOD COUNT 4.79 x10^6/uL (4.30-5.70); RED CELL DISTRIBUTION WIDTH 13.6 % (11.5-14.5); WHITE BLOOD COUNT 8.9 x10^3/uL (4.0-11.0)
[2019-03-28 19:58] LABS: CALCIUM 9.3 mg/dL (8.5-10.1); CREATININE 1.3 mg/dL (0.7-1.3); GFR 72.9; POTASSIUM 3.8 mmol/L (3.5-5.1)
[2019-03-28 20:05] LABS: ALBUMIN 4.1 g/dL (3.4-5.0); ALBUMIN/GLOBULIN RATIO 1.1 (1.0-1.7); TOTAL BILIRUBIN 0.6 mg/dL (0.2-1.0); TOTAL PROTEIN 7.9 g/dL (6.4-8.2)
[2019-03-28] MEDS ORDERED: NITROGLYCERIN SUBLINGUAL 0.4 MG BOTTLE OF 25. SL ONE (20:29)
[2019-03-28] MEDS ORDERED: HEPARIN for IV BOLUS 10,000 UNIT/10 ML VIAL. IV ONE (20:30)
[2019-03-28] MEDS: NITROGLYCERIN SUBLINGUAL 0.4 MG BOTTLE OF 25. SL PRN ×2 (20:47→20:57)
[2019-03-28] MEDS ORDERED: ASPIRIN CHEWABLE 81 MG TABLET. PO ONE (21:00)
[2019-03-28] MEDS ORDERED: HEPARIN 25,000UTS/500ML PREMIX 500 ML IV ONE (21:00)
[2019-03-28] MEDS ORDERED: ONDANSETRON PF 4 MG/2 ML VIAL. IV PRN (21:15)
[2019-03-28] MEDS ORDERED: NITROGLYCERIN SUBLINGUAL 0.4 MG BOTTLE OF 25. SL PRN (21:15)
--- NOTE | 2019-03-28 21:18 | EKG ---
[facility] [address] [place] [address] Test Date: 2019-03-28 Test Time: 20:19:35 Pat Name: JONG PINO Department: Room: Gender: M Obstetric Assistant: : 1975 Requested By: LONG SANCHEZ Order Number: [id number] Reading MD: Jarret Collins Measurements Intervals [place] Rate: 96 P: 46 FL: 176 QRS: 11 QRSD: 132 T: -117 QT: 380 QTc: 487 Interpretive Statements SINUS RHYTHM NON SPECIFIC INTRAVENTRICULAR BLOCK QRS(T) CONTOUR ABNORMALITY CONSISTENT WITH INFERIOR INFARCT AGE UNDETERMINED ABNORMAL ECG Electronically Signed On 03-29-2019 3:46:10 PAINTER FOREMAN by Jarret Collins
--- NOTE | 2019-03-28 21:36 | RAD ---
CT ABDOMEN PELVIS WO CONTRAST INDICATION: Epigastric pain, history of pancreatic EXAM: Noncontrast CT of the abdomen and pelvis. Coronal and sagittal reformatted images were performed. PQRS compliance statement: One or more of the following individualized dose reduction techniques were utilized for this examination: 1. Automated exposure control 2. Adjustment of the mA and/or kV according to patient size 3. Use of iterative reconstruction technique COMPARISON: 01/15/2019 FINDINGS: No free air, free fluid, or fluid collection. Lower chest: The visualized lower lungs are aerated. No pleural or pericardial effusion. ABDOMEN: Liver: The noncontrast liver is homogeneous in attenuation. Gallbladder and biliary: Cholecystectomy. Normal caliber bile ducts. Spleen: Normal spleen. Pancreas: Numerous punctate pancreatic calcifications. No peripancreatic inflammation or fluid collection Adrenal glands: Normal adrenal glands. Kidneys and ureters: No opaque urinary calculi. Normal kidneys and ureters. GI tract: The stomach is decompressed and poorly evaluated. Normal caliber small bowel and colon. Normal appendix. Vascular structures: Mild aortoiliac atherosclerotic disease Lymph nodes: No lymphadenopathy in the abdomen or pelvis. PELVIS: Genitourinary system: Normal bladder. Normal prostate gland and seminal vesicles. SKELETAL STRUCTURES AND SOFT TISSUES: No fracture or destructive lesion in the visualized skeleton. IMPRESSION: Numerous punctate pancreatic calcifications consistent with chronic pancreatitis. No peripancreatic inflammation or fluid collection. Electronically signed by: Gregorio Antonio MD (03/28/2019 9:33 PM) [facility]
[2019-03-28] MEDS: MORPHINE SULFATE 2 MG/ML VIAL. IV PRN (22:31)
[2019-03-28] MEDS: TIROFIBAN 5MG -0.9% NS 100 ML IV PRN (22:57)
[2019-03-28 23:55] VITALS: BP 139/90
[2019-03-29] VITALS (16 sets, daily range): BP systolic 103–144; BP diastolic 55–95
--- NOTE | 2019-03-29 00:01 | NUR ---
The patient, JONG PINO, 43 y/o, M admitted by ARLYN BASURTO III, DO, was given written information regarding hospital policies, unit procedures and contact persons. RN asked Josiane Plywood Layup Line Core Layer to mobile phone page Dr Collins to make aware patient still complains of chest pain. Patient is on a Agrastat gtt. 1st Trop was 20.381, 2nd Trop 26.578. RN will continue to monitor.
--- NOTE | 2019-03-29 00:45 | NUR ---
Urine collected. sent to lab as ordered.
[2019-03-29] MEDS: TIROFIBAN 5MG -0.9% NS 100 ML IV PRN (00:57)
[2019-03-29] MEDS: MORPHINE SULFATE 2 MG/ML VIAL. IV PRN ×2 (00:58→02:41)
[2019-03-29 01:14] LABS: BILIRUBIN,URINE NEGATIVE (NEG); CLARITY,URINE CLEAR; COLOR,URINE YELLOW; NITRITE,URINE NEGATIVE (NEG); PH,URINE 5.5; PROTEIN,URINE NEGATIVE (NEG-TRACE); UROBILINOGEN,URINE 0.2 mg/dL (0.2 mg/dL)
[2019-03-29 01:19] LABS: BACTERIA,URINE FEW /HPF (0-FEW); RBC,URINE OCC /HPF (0-2); SQUAMOUS EPITHELIAL CELL,UR FEW /LPF
[2019-03-29 02:23] LABS: ALBUMIN 3.5 g/dL (3.4-5.0); CALCIUM 8.8 mg/dL (8.5-10.1); CREATININE 0.9 mg/dL (0.7-1.3); GFR 111.4; POTASSIUM 3.7 mmol/L (3.5-5.1); TOTAL BILIRUBIN 0.9 mg/dL (0.2-1.0)
--- NOTE | 2019-03-29 02:33 | NUR ---
Current Troponin up to 32.225. Paged [employer] Finisher Josiane dan [employer] message to Dr Collins.
[2019-03-29 02:39] LABS: BASO % 1 % (0-3); EOS # 0.1 x10^3/uL (0.0-0.7); EOS % 1 % (0-3); HEMATOCRIT 34.8 % (39.0-53.0); HEMOGLOBIN 11.6 g/dL (13.0-17.5); LYMPH # 2.7 x10^3/uL (1.0-4.8); LYMPH % 45 % (24-48); MEAN CORPUSCULAR HEMOGLOBIN 26 pg (25-35); MEAN CORPUSCULAR HGB CONC 33 g/dL (31-37); MEAN CORPUSCULAR VOLUME 79 fL (79-100); MONO # 0.4 x10^3/uL (0.0-1.1); MONO % 7 % (0-9); NEUT # 2.9 x10^3/uL (1.8-7.7); NEUT % 47 % (31-73); PLATELET COUNT 210 x10^3/uL (140-400); RED BLOOD COUNT 4.41 x10^6/uL (4.30-5.70); RED CELL DISTRIBUTION WIDTH 13.7 % (11.5-14.5); WHITE BLOOD COUNT 6.1 x10^3/uL (4.0-11.0)
[2019-03-29] MEDS ORDERED: HEPARIN for ARTERIAL LINE 1,500 ML ONE (03:29)
[2019-03-29] MEDS ORDERED: LIDOCAINE 1% Multi-Dose 20 ML VIAL. ONE (03:29)
[2019-03-29] MEDS ORDERED: IODIXANOL 320 MG/ML 100 ML VIAL. ONE (03:29)
--- NOTE | 2019-03-29 03:44 | PDOC2 ---
CONSULT Date of Consult Date of Consult DATE: 03/29/19 TIME: 03:44 Reason for Consult Reason for Consult: Elevated troponin level Referring Physician Referring Physician: Dr. Bryant Identification/Chief Complaint Chief Complaint Abdominal pain Source Source: Chart review, Patient History of Present Illness Reason for Visit: 43-year-old male with history of coronary artery disease with previous cardiac catheterization showing chronic total occlusion of RCA and history of pancreatitis presented complaining of left-sided flank pain, nausea, vomiting, diarrhea and loss of appetite. He denied any chest pain as such. He also denied any shortness of breath, palpitations or syncope. His troponin level was elevated prompting cardiology consultation. Past Medical History Cardiovascular: CAD, CHF, HTN, Hyperlipidemia, Other Pulmonary: No pertinent hx CENTRAL NERVOUS SYSTEM: Other GI: No pertinent hx Heme/Onc: No pertinent hx Hepatobiliary: Cholelithiasis Psych: Addictions Musculoskeletal: low back pain Rheumatologic: No pertinent hx Infectious disease: No pertinent hx Renal/: No pertinent hx Endocrine: Other Past Surgical History Past Surgical History: Cholecystectomy Family History Family History: Cancer, Diabetes, Hypertension Social History ALCOHOL: none Drugs: None Lives: with Family Domestic Violence: Neg Current Problem List Problem List Problems Medical Problems: (1) Diabetes Status: Acute (2) Elevated troponin Status: Acute (3) Epigastric abdominal pain Status: Acute (4) HTN (hypertension) Status: Acute Current Medications Current Medications Current Medications Morphine Sulfate (Morphine Sulfate) 4 mg PRN Q15MIN PRN IV/SQ PAIN GREATER THAN 3/10 Last administered on 03/28/19at 19:47; Start 03/28/19 at 19:30; Stop 03/29/19 at 19:29 Sodium Chloride 1,000 ml @ 1,000 mls/hr Q1H IV Last administered on 03/28/19at 19:46; Start 03/28/19 at 19:30; Stop 03/28/19 at 20:29; Status DC Ondansetron HCl (Zofran) 4 mg 1X ONCE IV Last administered on 03/28/19at 19:47 ; Start 03/28/19 at 19:45; Stop 03/28/19 at 19:46; Status DC Heparin Sodium (Porcine) (Heparin Sodium) 4,000 unit 1X ONCE IV Last administered on 03/28/19at 20:35; Start 03/28/19 at 20:30; Stop 03/28/19 at 20:31; Status DC Heparin Sodium/ Dextrose 500 ml @ 0 mls/hr 1X ONCE IV Last administered on 03/28/19at 20:42; Start 03/28/19 at 21:00; Stop 03/28/19 at 21:01; Status DC Nitroglycerin (Nitrostat) 0.4 mg STK-MED ONCE SL ; Start 03/28/19 at 20:29; Stop 03/28/19 at 20:30; Status DC Aspirin (Children'S Aspirin) 324 mg 1X ONCE PO Last administered on 03/28/19at 20:45; Start 03/28/19 at 21:00; Stop 03/28/19 at 21:01; Status DC Nitroglycerin (Nitrostat) 0.4 mg PRN Q5MIN PRN SL CHEST PAIN Last administered on 03/28/19at 20:57; Start 03/28/19 at 20:45; Stop 03/28/19 at 23:37; Status DC Tirofiban/Sodium Chloride 100 ml @ 0 mls/hr CONT PRN IV PER PROTOCOL Last administered on 03/29/19at 00:57; Start 03/28/19 at 22:00; Stop 03/29/19 at 16:00 Ondansetron HCl (Zofran) 4 mg PRN Q8HRS PRN IV NAUSEA/VOMITING; Start 03/28/19 at 21:15; Stop 03/29/19 at 21:14 Morphine Sulfate (Morphine Sulfate) 2 mg PRN Q2HR PRN IV PAIN Last administered on 03/29/19at 02:41; Start 03/28/19 at 21:15; Stop 03/29/19 at 21:14 Nitroglycerin (Nitrostat) 0.4 mg PRN Q5MIN PRN SL CHEST PAIN; Start 03/28/19 at 21:15; Stop 03/29/19 at 21:14 Iodixanol (Visipaque 320) 100 ml STK-MED ONCE .ROUTE ; Start 03/29/19 at 03:29; Stop 03/29/19 at 03:29; Status DC Lidocaine HCl (Lidocaine 1% 20ml Vial) 20 ml STK-MED ONCE .ROUTE ; Start 03/29/19 at 03:29; Stop 03/29/19 at 03:29; Status DC Heparin Sodium/ Sodium Chloride 1,500 ml @ As Directed STK-MED ONCE .ROUTE ; Start 03/29/19 at 03:29; Stop 03/29/19 at 03:29; Status DC Famotidine (Pepcid Vial) 20 mg 1X ONCE IVP ; Start 03/29/19 at 03:45; Stop 03/29/19 at 03:46 Diphenhydramine HCl (Benadryl) 50 mg 1X ONCE IVP ; Start 03/29/19 at 03:45; Stop 03/29/19 at 03:46 Methylprednisolone Sodium Succinate (SOLU-Medrol 125MG VIAL) 125 mg 1X ONCE IV ; Start 03/29/19 at 03:45; Stop 03/29/19 at 03:46 Active Scripts Active Metformin Hcl 500 Mg Tablet 500 Mg PO BIDWMEALS 30 Days Cozaar (Losartan Potassium) 50 Mg Tablet 50 Mg PO DAILY 30 Days Hydralazine Hcl 50 Mg Tablet 100 Mg PO TID 30 Days Amlodipine Besylate 5 Mg Tablet 10 Mg PO DAILY 30 Days Allergies Allergies: Coded Allergies: Iodine and Iodide Containing Produc (Verified Allergy, Severe, Anaphylaxis, 03/29/19) hydrocodone (Verified Allergy, Severe, itching all over body, tolerates Morphine OK, 04/24/15) fentanyl (Verified Allergy, Intermediate, Nausea and Vomiting, 12/24/15) ROS PSYCHOLOGICAL ROS: No: Hallucinations Eyes: No Loss of vision HEENT: No: Epistaxis Respiratory: No: Hemoptysis Cardiovascular: No Chest Pain Gastrointestinal: Yes Nausea, Yes Vomiting, Yes Abdominal Pain, Yes Diarrhea Genitourinary: YES Flank Pain Neurological: No Seizures Skin: No Rash Physical Exam General: Alert, Oriented X3 HEENT: Atraumatic, PERRLA Lungs: Clear to auscultation Heart: Regular rate Abdomen: Soft Extremities: No edema Psych/Mental Status: Mood NL Vitals VITALS Vital Signs Date Time Temp Pulse Resp B/P (MAP) Pulse Ox O2 Delivery O2 Flow Rate FiO2 03/29/19 02:41 18 97 Room Air 03/29/19 02:02 98.5 97 144/95 (111) 98.5 Labs Labs Laboratory Tests Test 03/28/19 19:40 03/28/19 22:30 03/29/19 00:45 03/29/19 01:45 White Blood Count 8.9 x10^3/uL (4.0-11.0) 6.1 x10^3/uL (4.0-11.0) Red Blood Count 4.79 x10^6/uL (4.30-5.70) 4.41 x10^6/uL (4.30-5.70) Hemoglobin 12.5 g/dL (13.0-17.5) 11.6 g/dL (13.0-17.5) Hematocrit 37.7 % (39.0-53.0) 34.8 % (39.0-53.0) Mean Corpuscular Volume 79 fL (79-100) 79 fL (79-100) Mean Corpuscular Hemoglobin 26 pg (25-35) 26 pg (25-35) Mean Corpuscular Hemoglobin Concent 33 g/dL (31-37) 33 g/dL (31-37) Red Cell Distribution Width 13.6 % (11.5-14.5) 13.7 % (11.5-14.5) Platelet Count 223 x10^3/uL (140-400) 210 x10^3/uL (140-400) Neutrophils (%) (Auto) 60 % (31-73) 47 % (31-73) Lymphocytes (%) (Auto) 31 % (24-48) 45 % (24-48) Monocytes (%) (Auto) 8 % (0-9) 7 % (0-9) Eosinophils (%) (Auto) 1 % (0-3) 1 % (0-3) Basophils (%) (Auto) 1 % (0-3) 1 % (0-3) Neutrophils # (Auto) 5.3 x10^3/uL (1.8-7.7) 2.9 x10^3/uL (1.8-7.7) Lymphocytes # (Auto) 2.7 x10^3/uL (1.0-4.8) 2.7 x10^3/uL (1.0-4.8) Monocytes # (Auto) 0.7 x10^3/uL (0.0-1.1) 0.4 x10^3/uL (0.0-1.1) Eosinophils # (Auto) 0.0 x10^3/uL (0.0-0.7) 0.1 x10^3/uL (0.0-0.7) Basophils # (Auto) 0.1 x10^3/uL (0.0-0.2) 0.0 x10^3/uL (0.0-0.2) Sodium Level 134 mmol/L (136-145) 135 mmol/L (136-145) Potassium Level 3.8 mmol/L (3.5-5.1) 3.7 mmol/L (3.5-5.1) Chloride Level 96 mmol/L (98-107) 99 mmol/L (98-107) Carbon Dioxide Level 26 mmol/L (21-32) 28 mmol/L (21-32) Anion Gap 12 (6-14) 8 (6-14) Blood Urea Nitrogen 20 mg/dL (8-26) 18 mg/dL (8-26) Creatinine 1.3 mg/dL (0.7-1.3) 0.9 mg/dL (0.7-1.3) Estimated GFR (Cockcroft-Gault) 72.9 111.4 BUN/Creatinine Ratio 15 (6-20) 20 (6-20) Glucose Level 288 mg/dL (70-99) 210 mg/dL (70-99) Calcium Level 9.3 mg/dL (8.5-10.1) 8.8 mg/dL (8.5-10.1) Total Bilirubin 0.6 mg/dL (0.2-1.0) 0.9 mg/dL (0.2-1.0) Aspartate Amino Transf (AST/SGOT) 98 U/L (15-37) 226 U/L (15-37) Alanine Aminotransferase (ALT/SGPT) 18 U/L (16-63) 52 U/L (16-63) Alkaline Phosphatase 111 U/L (46-116) 117 U/L (46-116) Troponin I Quantitative 20.381 ng/mL (0.000-0.055) 26.578 ng/mL (0.000-0.055) 32.225 ng/mL (0.000-0.055) Total Protein 7.9 g/dL (6.4-8.2) 7.0 g/dL (6.4-8.2) Albumin 4.1 g/dL (3.4-5.0) 3.5 g/dL (3.4-5.0) Albumin/Globulin Ratio 1.1 (1.0-1.7) 1.0 (1.0-1.7) Lipase 207 U/L (73-393) Urine Collection Type Unknown Urine Color Yellow Urine Clarity Clear Urine pH 5.5 Urine Specific [place] 1.020 Urine Protein Negative mg/dL (NEG-TRACE) Urine Glucose (UA) >=1000 mg/dL (NEG) Urine Ketones (Stick) Negative mg/dL (NEG) Urine Blood Negative (NEG) Urine Nitrite Negative (NEG) Urine Bilirubin Negative (NEG) Urine Urobilinogen Dipstick 0.2 mg/dL (0.2 mg/dL) Urine Leukocyte Esterase Negative (NEG) Urine RBC Occ /HPF (0-2) Urine WBC 1-4 /HPF (0-4) Urine Squamous Epithelial Cells Few /LPF Urine Bacteria Few /HPF (0-FEW) Urine Mucus Mod /LPF Laboratory Tests Test 03/28/19 19:40 03/28/19 22:30 03/29/19 00:45 03/29/19 01:45 White Blood Count 8.9 x10^3/uL (4.0-11.0) 6.1 x10^3/uL (4.0-11.0) Red Blood Count 4.79 x10^6/uL (4.30-5.70) 4.41 x10^6/uL (4.30-5.70) Hemoglobin 12.5 g/dL (13.0-17.5) 11.6 g/dL (13.0-17.5) Hematocrit 37.7 % (39.0-53.0) 34.8 % (39.0-53.0) Mean Corpuscular Volume 79 fL (79-100) 79 fL (79-100) Mean Corpuscular Hemoglobin 26 pg (25-35) 26 pg (25-35) Mean Corpuscular Hemoglobin Concent 33 g/dL (31-37) 33 g/dL (31-37) Red Cell Distribution Width 13.6 % (11.5-14.5) 13.7 % (11.5-14.5) Platelet Count 223 x10^3/uL (140-400) 210 x10^3/uL (140-400) Neutrophils (%) (Auto) 60 % (31-73) 47 % (31-73) Lymphocytes (%) (Auto) 31 % (24-48) 45 % (24-48) Monocytes (%) (Auto) 8 % (0-9) 7 % (0-9) Eosinophils (%) (Auto) 1 % (0-3) 1 % (0-3) Basophils (%) (Auto) 1 % (0-3) 1 % (0-3) Neutrophils # (Auto) 5.3 x10^3/uL (1.8-7.7) 2.9 x10^3/uL (1.8-7.7) Lymphocytes # (Auto) 2.7 x10^3/uL (1.0-4.8) 2.7 x10^3/uL (1.0-4.8) Monocytes # (Auto) 0.7 x10^3/uL (0.0-1.1) 0.4 x10^3/uL (0.0-1.1) Eosinophils # (Auto) 0.0 x10^3/uL (0.0-0.7) 0.1 x10^3/uL (0.0-0.7) Basophils # (Auto) 0.1 x10^3/uL (0.0-0.2) 0.0 x10^3/uL (0.0-0.2) Sodium Level 134 mmol/L (136-145) 135 mmol/L (136-145) Potassium Level 3.8 mmol/L (3.5-5.1) 3.7 mmol/L (3.5-5.1) Chloride Level 96 mmol/L (98-107) 99 mmol/L (98-107) Carbon Dioxide Level 26 mmol/L (21-32) 28 mmol/L (21-32) Anion Gap 12 (6-14) 8 (6-14) Blood Urea Nitrogen 20 mg/dL (8-26) 18 mg/dL (8-26) Creatinine 1.3 mg/dL (0.7-1.3) 0.9 mg/dL (0.7-1.3) Estimated GFR (Cockcroft-Gault) 72.9 111.4 BUN/Creatinine Ratio 15 (6-20) 20 (6-20) Glucose Level 288 mg/dL (70-99) 210 mg/dL (70-99) Calcium Level 9.3 mg/dL (8.5-10.1) 8.8 mg/dL (8.5-10.1) Total Bilirubin 0.6 mg/dL (0.2-1.0) 0.9 mg/dL (0.2-1.0) Aspartate Amino Transf (AST/SGOT) 98 U/L (15-37) 226 U/L (15-37) Alanine Aminotransferase (ALT/SGPT) 18 U/L (16-63) 52 U/L (16-63) Alkaline Phosphatase 111 U/L (46-116) 117 U/L (46-116) Troponin I Quantitative 20.381 ng/mL (0.000-0.055) 26.578 ng/mL (0.000-0.055) 32.225 ng/mL (0.000-0.055) Total Protein 7.9 g/dL (6.4-8.2) 7.0 g/dL (6.4-8.2) Albumin 4.1 g/dL (3.4-5.0) 3.5 g/dL (3.4-5.0) Albumin/Globulin Ratio 1.1 (1.0-1.7) 1.0 (1.0-1.7) Lipase 207 U/L (73-393) Urine Collection Type Unknown Urine Color Yellow Urine Clarity Clear Urine pH 5.5 Urine Specific [place] 1.020 Urine Protein Negative mg/dL (NEG-TRACE) Urine Glucose (UA) >=1000 mg/dL (NEG) Urine Ketones (Stick) Negative mg/dL (NEG) Urine Blood Negative (NEG) Urine Nitrite Negative (NEG) Urine Bilirubin Negative (NEG) Urine Urobilinogen Dipstick 0.2 mg/dL (0.2 mg/dL) Urine Leukocyte Esterase Negative (NEG) Urine RBC Occ /HPF (0-2) Urine WBC 1-4 /HPF (0-4) Urine Squamous Epithelial Cells Few /LPF Urine Bacteria Few /HPF (0-FEW) Urine Mucus Mod /LPF Assessment/Plan Assessment/Plan 1. Non-STEMI. Patient has known history of chronic total occlusion of RCA. He denied any chest pain as such. However, since his troponin levels are increasing, we will proceed with emergent cardiac catheterization and possible angioplasty. Risks and benefits were explained and he is agreeable. Hold heparin and continue Aggrastat infusion. 2. Ischemic cardiomyopathy/chronic systolic heart failure: Patient's LVEF was 30-35% in 2014 that improved to 45% in 2016. He is clinically well compensated. We will repeat 2-D echocardiogram. Start beta blockers. He is on losartan as an outpatient. We will consider changing this to entresto prior to discharge. 3. Hypertension: Well-controlled 4. Patent foramen ovale by history without any paradoxical embolization 5. Abdominal/flank pain in a patient with known history of pancreatitis. Management per IM. Thank you for your consultation. TOM VILLAR MD Mar 29, 2019 03:44
[2019-03-29] MEDS ORDERED: methylPREDNISolone SOD SUCC PF 125 MG/2 ML VIAL. IV ONE (03:45)
[2019-03-29] MEDS ORDERED: FAMOTIDINE 20 MG/2 ML VIAL IVP ONE (03:45)
[2019-03-29] MEDS ORDERED: diphenhydrAMINE 50 MG/ML VIAL IVP ONE ×2 (03:45→04:30)
[2019-03-29] MEDS ORDERED: MORPHINE SULFATE 10 MG/ML VIAL. ONE (03:48)
[2019-03-29] MEDS ORDERED: methylPREDNISolone SOD SUCC PF 125 MG/2 ML VIAL. ONE (03:48)
[2019-03-29] MEDS ORDERED: NITROGLYCERIN 200 MCG/2 ML SYRINGE FOR CATH/VASC LAB. ONE (03:49)
[2019-03-29] MEDS ORDERED: VERAPAMIL 5 MG/2 ML VIAL. ONE (03:49)
[2019-03-29] MEDS ORDERED: MIDAZOLAM HCL/PF 2 MG/2 ML VIAL. ONE (03:49)
[2019-03-29] MEDS ORDERED: diphenhydrAMINE 50 MG/ML VIAL ONE ×2 (03:49→04:23)
[2019-03-29] MEDS ORDERED: FAMOTIDINE 20 MG/2 ML VIAL ONE (03:49)
[2019-03-29] MEDS ORDERED: HEPARIN for IV BOLUS 10,000 UNIT/10 ML VIAL. ONE (03:49)
--- NOTE | 2019-03-29 03:50 | NUR ---
[facility] Team here to take patient for Heart Cath.
[2019-03-29] MEDS ORDERED: BIVALIRUDIN 250 MG VIAL. IV ONE ×2 (04:04→04:15)
[2019-03-29] MEDS ORDERED: MIDAZOLAM HCL/PF 2 MG/2 ML VIAL. IV ONE (04:15)
[2019-03-29] MEDS ORDERED: LIDOCAINE 1% Multi-Dose 20 ML VIAL. INJ ONE (04:15)
[2019-03-29] MEDS ORDERED: IODIXANOL 320 MG/ML 100 ML VIAL. IART ONE (04:15)
[2019-03-29] MEDS ORDERED: MORPHINE SULFATE 10 MG/ML VIAL. IV ONE (04:15)
[2019-03-29] MEDS ORDERED: NITROGLYCERIN 200 MCG/2 ML SYRINGE FOR CATH/VASC LAB. IART ONE (04:30)
[2019-03-29] MEDS ORDERED: CLOPIDOGREL BISULFATE 75 MG TABLET ONE (04:33)
[2019-03-29] MEDS ORDERED: IV 1/2 NORMAL SALINE 1,000 ML IV SCH (04:45)
[2019-03-29] MEDS ORDERED: CLOPIDOGREL BISULFATE 75 MG TABLET PO ONE (04:45)
--- NOTE | 2019-03-29 04:55 | NUR ---
The patient, JONG PINO, 43 y/o, M returned from [employer]. right groin with Angio Seal. gauze with transparent dressing CDI. 2+ pulses LE. HURT will continue monitor.
--- NOTE | 2019-03-29 04:57 | CARD ---
MR#: [id number] Date of Study: 03/29/2019 Ordering Physician: TOM VILLAR, Referring Physician: TOM VILLAR Tech: STEVE HU RTR APPROVED REPORT Technologist: STEVE HU RTR Nurse: RACHEAL RILEY RN Procedure(s) performed: 1. Left heart catheterization, selective coronary angiography and left ventr iculography 2. Successful PCI/drug eluting stent placement to the left anterior descending artery. MODERATE SEDATION TIME: 48 MINUTES FLUORO TIME: 7.1 MIN DOSE: [id number] CONTRAST: 185 INDICATION The indication(s) include : non-STEMI , 43-year-old male presented with left-sided flank pain and was found to have elevated troponin level. He was diagnosed with possible pancreatitis and non-STEMI and placed on heparin and Aggrastat. However, his troponins kept increasing and hence he was taken emerg ently for cardiac catheterization.. [facility] Clinical Frailty Scale [facility] Clinical Frailty Scale: Mildly Frail Heart Failure Heart Failure: Yes If Yes, Newly Diagnosed: No If Yes, HF Type: Systolic If Yes, NYHA Class: Class II PROCEDURE NARRATIVE After explaining the risks, benefits and alternative options, informed consent was obtained from naa ent. Patient was brought to the cardiac Imaging Assistant and his right groin was prepped and draped in the us ual fashion. 20 mL of 2% lidocaine was infiltrated into the skin and subcutaneous tissues for local a nesthesia. Arterial access was obtained in the right common femoral artery and a 6 Swiss sheath was inserted. 6 Swiss JL4 and 6 Swiss JR4 catheters were used to perform selective angiography of the l eft and right coronary arteries. 6 Swiss pigtail catheter was used to perform left ventriculography. The following findings were noted. FINDINGS 1. Hemodynamics: Left ventricle end diastolic pressure 20 mmHg. No pullback gradient across the aor tic valve. 2. Left ventriculography: Moderate to severe left ventricle systolic dysfunction with ejection frac tion estimated at 25%. 1+ mitral regurgitation seen. 3. Coronary angiography: a. The left main coronary artery arose from the left sinus of Valsalva, gave rise to the left anteri or descending and left circumflex arteries and did not show any significant stenosis. b. The left anterior descending artery showed 99% stenosis in the midsegment. c. The left circumflex artery did not show any significant stenosis. d. The right coronary artery showed chronic total occlusion in the distal segment with reconstitutio n of the posterior descending artery from left to right collaterals. This was described in prior card iac catheterization. INTERVENTION The left main coronary artery was engaged with a 6 Swiss XB 3.5 guide catheter. The stenosis in the midsegment of the left anterior descending artery was crossed with 0.014 inch Swarm Pro water guidewi re. This was predilated with 2.5 x 12 mm trek balloon following which this was successfully treated w ith a 3.0 x 15 mm resolute shola drug-eluting stent. Follow-up angiography showed resolution of the st enosis to 0% with ALICE-3 distal flow. Patient tolerated the procedure well. Hemostasis was achieved u sing Angio-Seal. There were no immediate complications. ALICE Flow ALICE Flow (Pre-Intervention): ALICE-1 ALICE Flow (Post-Intervention): ALICE-3 Conclusion 1. Severe two-vessel coronary artery disease 2. Successful PCI/drug eluting stent placement to the left anterior descending artery 3. Moderate to severe left ventricle systolic dysfunction with ejection fraction estimated at 25% Recommendations 1. Aspirin 325 mg daily for one month followed by 81 mg daily 2. Plavix 75 mg daily for preferably one year 3. Cardiovascular risk factor modification 4. Repeat 2-D echo in 3 months to evaluate the need for AICD implantation Signed by : Tom Villar, Electronically Approved : 03/29/2019 04:56:42
[2019-03-29 06:56] LABS: CHOLESTEROL/HDL RATIO 3.2
[2019-03-29] MEDS ORDERED: TEMAZEPAM 7.5 MG CAPSULE PO PRN (08:45)
[2019-03-29] MEDS ORDERED: traMADol 50 MG TABLET PO PRN (08:45)
[2019-03-29] MEDS ORDERED: ONDANSETRON PF 4 MG/2 ML VIAL. IVP PRN (08:45)
[2019-03-29] MEDS ORDERED: CALCIUM CARBONATE 500 MG TAB.CHEW PO PRN (08:45)
[2019-03-29] MEDS ORDERED: MORPHINE SULFATE 2 MG/ML VIAL. IV PRN (08:45)
[2019-03-29] MEDS: LOSARTAN POTASSIUM 50 MG TABLET. PO SCH ×2 (09:00→09:15)
[2019-03-29] MEDS: amLODIPine BESYLATE 10 MG TABLET PO SCH (09:14)
[2019-03-29] MEDS: METOPROLOL TART IMMED RELEASE 25 MG TABLET. PO SCH ×2 (09:15→21:19)
--- NOTE | 2019-03-29 11:13 | PDOC ---
PROGRESS NOTES Chief Complaint Chief Complaint 1. Non-STEMI. s/p stat [facility] 03/29 2. Ischemic cardiomyopathy/chronic systolic heart failure: Patient's LVEF was 30-35% in 2015 that improved to 45% in 2016. 3. Hypertension: Well-controlled 4. Patent foramen ovale by history without any paradoxical embolization 5. Abdominal/flank pain resolved History of Present Illness History of Present Illness STAT [facility] at 3 am today and 1 stent DOing well ON agrestat infusion etc NO CP NO abd pain VS and labs ok TROP PEAKS 32 post LHC\ BUt pre C was 20 TAkes 2 BP meds at home and losartan and metformin at home Unknown [id number] BS here ok PLAN: CArdiac meds NO more abd pain so i left that chronic pancreatitis hx alone Echo Supprotive meds Rt groin looks great Vitals Vitals Vital Signs Date Time Temp Pulse Resp B/P (MAP) Pulse Ox O2 Delivery O2 Flow Rate FiO2 03/29/19 11:00 97.9 86 18 136/92 (107) 99 Room Air 97.9 03/29/19 09:48 2.0 Physical Exam General: Alert, Oriented X3, No acute distress Heart: Regular rate, Normal S1, Normal S2, No murmurs Lungs: Clear Abdomen: Normal bowel sounds, Soft, No tenderness, No hepatosplenomegaly Extremities: No clubbing, No cyanosis, No edema Skin: No rashes, No breakdown, No significant lesion Labs LABS Laboratory Tests Test 03/28/19 19:40 03/28/19 22:30 03/29/19 00:45 03/29/19 01:45 White Blood Count 8.9 x10^3/uL (4.0-11.0) 6.1 x10^3/uL (4.0-11.0) Red Blood Count 4.79 x10^6/uL (4.30-5.70) 4.41 x10^6/uL (4.30-5.70) Hemoglobin 12.5 g/dL (13.0-17.5) 11.6 g/dL (13.0-17.5) Hematocrit 37.7 % (39.0-53.0) 34.8 % (39.0-53.0) Mean Corpuscular Volume 79 fL (79-100) 79 fL (79-100) Mean Corpuscular Hemoglobin 26 pg (25-35) 26 pg (25-35) Mean Corpuscular Hemoglobin Concent 33 g/dL (31-37) 33 g/dL (31-37) Red Cell Distribution Width 13.6 % (11.5-14.5) 13.7 % (11.5-14.5) Platelet Count 223 x10^3/uL (140-400) 210 x10^3/uL (140-400) Neutrophils (%) (Auto) 60 % (31-73) 47 % (31-73) Lymphocytes (%) (Auto) 31 % (24-48) 45 % (24-48) Monocytes (%) (Auto) 8 % (0-9) 7 % (0-9) Eosinophils (%) (Auto) 1 % (0-3) 1 % (0-3) Basophils (%) (Auto) 1 % (0-3) 1 % (0-3) Neutrophils # (Auto) 5.3 x10^3/uL (1.8-7.7) 2.9 x10^3/uL (1.8-7.7) Lymphocytes # (Auto) 2.7 x10^3/uL (1.0-4.8) 2.7 x10^3/uL (1.0-4.8) Monocytes # (Auto) 0.7 x10^3/uL (0.0-1.1) 0.4 x10^3/uL (0.0-1.1) Eosinophils # (Auto) 0.0 x10^3/uL (0.0-0.7) 0.1 x10^3/uL (0.0-0.7) Basophils # (Auto) 0.1 x10^3/uL (0.0-0.2) 0.0 x10^3/uL (0.0-0.2) Sodium Level 134 mmol/L (136-145) 135 mmol/L (136-145) Potassium Level 3.8 mmol/L (3.5-5.1) 3.7 mmol/L (3.5-5.1) Chloride Level 96 mmol/L (98-107) 99 mmol/L (98-107) Carbon Dioxide Level 26 mmol/L (21-32) 28 mmol/L (21-32) Anion Gap 12 (6-14) 8 (6-14) Blood Urea Nitrogen 20 mg/dL (8-26) 18 mg/dL (8-26) Creatinine 1.3 mg/dL (0.7-1.3) 0.9 mg/dL (0.7-1.3) Estimated GFR (Cockcroft-Gault) 72.9 111.4 BUN/Creatinine Ratio 15 (6-20) 20 (6-20) Glucose Level 288 mg/dL (70-99) 210 mg/dL (70-99) Calcium Level 9.3 mg/dL (8.5-10.1) 8.8 mg/dL (8.5-10.1) Total Bilirubin 0.6 mg/dL (0.2-1.0) 0.9 mg/dL (0.2-1.0) Aspartate Amino Transf (AST/SGOT) 98 U/L (15-37) 226 U/L (15-37) Alanine Aminotransferase (ALT/SGPT) 18 U/L (16-63) 52 U/L (16-63) Alkaline Phosphatase 111 U/L (46-116) 117 U/L (46-116) Troponin I Quantitative 20.381 ng/mL (0.000-0.055) 26.578 ng/mL (0.000-0.055) 32.225 ng/mL (0.000-0.055) Total Protein 7.9 g/dL (6.4-8.2) 7.0 g/dL (6.4-8.2) Albumin 4.1 g/dL (3.4-5.0) 3.5 g/dL (3.4-5.0) Albumin/Globulin Ratio 1.1 (1.0-1.7) 1.0 (1.0-1.7) Lipase 207 U/L (73-393) Urine Collection Type Unknown Urine Color Yellow Urine Clarity Clear Urine pH 5.5 Urine Specific [place] 1.020 Urine Protein Negative mg/dL (NEG-TRACE) Urine Glucose (UA) >=1000 mg/dL (NEG) Urine Ketones (Stick) Negative mg/dL (NEG) Urine Blood Negative (NEG) Urine Nitrite Negative (NEG) Urine Bilirubin Negative (NEG) Urine Urobilinogen Dipstick 0.2 mg/dL (0.2 mg/dL) Urine Leukocyte Esterase Negative (NEG) Urine RBC Occ /HPF (0-2) Urine WBC 1-4 /HPF (0-4) Urine Squamous Epithelial Cells Few /LPF Urine Bacteria Few /HPF (0-FEW) Urine Mucus Mod /LPF Triglycerides Level 86 mg/dL (0-150) Cholesterol Level 120 mg/dL (0-200) LDL Cholesterol, Calculated 65 mg/dL (0-100) VLDL Cholesterol, Calculated 17 mg/dL (0-40) Non-HDL Cholesterol Calculated 82 mg/dL (0-129) HDL Cholesterol 38 mg/dL (40-60) Cholesterol/HDL Ratio 3.2 Review of Systems Review of Systems neg 14pt reviewed Assessment and Plan Assessmemt and Plan Problems Medical Problems: (1) Diabetes Status: Acute (2) Elevated troponin Status: Acute (3) Epigastric abdominal pain Status: Acute (4) HTN (hypertension) Status: Acute Comment Review of Relevant I have reviewed the following items diego (where applicable) has been applied. Labs Laboratory Tests Test 03/28/19 19:40 03/28/19 22:30 03/29/19 00:45 03/29/19 01:45 White Blood Count 8.9 x10^3/uL (4.0-11.0) 6.1 x10^3/uL (4.0-11.0) Red Blood Count 4.79 x10^6/uL (4.30-5.70) 4.41 x10^6/uL (4.30-5.70) Hemoglobin 12.5 g/dL (13.0-17.5) 11.6 g/dL (13.0-17.5) Hematocrit 37.7 % (39.0-53.0) 34.8 % (39.0-53.0) Mean Corpuscular Volume 79 fL (79-100) 79 fL (79-100) Mean Corpuscular Hemoglobin 26 pg (25-35) 26 pg (25-35) Mean Corpuscular Hemoglobin Concent 33 g/dL (31-37) 33 g/dL (31-37) Red Cell Distribution Width 13.6 % (11.5-14.5) 13.7 % (11.5-14.5) Platelet Count 223 x10^3/uL (140-400) 210 x10^3/uL (140-400) Neutrophils (%) (Auto) 60 % (31-73) 47 % (31-73) Lymphocytes (%) (Auto) 31 % (24-48) 45 % (24-48) Monocytes (%) (Auto) 8 % (0-9) 7 % (0-9) Eosinophils (%) (Auto) 1 % (0-3) 1 % (0-3) Basophils (%) (Auto) 1 % (0-3) 1 % (0-3) Neutrophils # (Auto) 5.3 x10^3/uL (1.8-7.7) 2.9 x10^3/uL (1.8-7.7) Lymphocytes # (Auto) 2.7 x10^3/uL (1.0-4.8) 2.7 x10^3/uL (1.0-4.8) Monocytes # (Auto) 0.7 x10^3/uL (0.0-1.1) 0.4 x10^3/uL (0.0-1.1) Eosinophils # (Auto) 0.0 x10^3/uL (0.0-0.7) 0.1 x10^3/uL (0.0-0.7) Basophils # (Auto) 0.1 x10^3/uL (0.0-0.2) 0.0 x10^3/uL (0.0-0.2) Sodium Level 134 mmol/L (136-145) 135 mmol/L (136-145) Potassium Level 3.8 mmol/L (3.5-5.1) 3.7 mmol/L (3.5-5.1) Chloride Level 96 mmol/L (98-107) 99 mmol/L (98-107) Carbon Dioxide Level 26 mmol/L (21-32) 28 mmol/L (21-32) Anion Gap 12 (6-14) 8 (6-14) Blood Urea Nitrogen 20 mg/dL (8-26) 18 mg/dL (8-26) Creatinine 1.3 mg/dL (0.7-1.3) 0.9 mg/dL (0.7-1.3) Estimated GFR (Cockcroft-Gault) 72.9 111.4 BUN/Creatinine Ratio 15 (6-20) 20 (6-20) Glucose Level 288 mg/dL (70-99) 210 mg/dL (70-99) Calcium Level 9.3 mg/dL (8.5-10.1) 8.8 mg/dL (8.5-10.1) Total Bilirubin 0.6 mg/dL (0.2-1.0) 0.9 mg/dL (0.2-1.0) Aspartate Amino Transf (AST/SGOT) 98 U/L (15-37) 226 U/L (15-37) Alanine Aminotransferase (ALT/SGPT) 18 U/L (16-63) 52 U/L (16-63) Alkaline Phosphatase 111 U/L (46-116) 117 U/L (46-116) Troponin I Quantitative 20.381 ng/mL (0.000-0.055) 26.578 ng/mL (0.000-0.055) 32.225 ng/mL (0.000-0.055) Total Protein 7.9 g/dL (6.4-8.2) 7.0 g/dL (6.4-8.2) Albumin 4.1 g/dL (3.4-5.0) 3.5 g/dL (3.4-5.0) Albumin/Globulin Ratio 1.1 (1.0-1.7) 1.0 (1.0-1.7) Lipase 207 U/L (73-393) Urine Collection Type Unknown Urine Color Yellow Urine Clarity Clear Urine pH 5.5 Urine Specific [place] 1.020 Urine Protein Negative mg/dL (NEG-TRACE) Urine Glucose (UA) >=1000 mg/dL (NEG) Urine Ketones (Stick) Negative mg/dL (NEG) Urine Blood Negative (NEG) Urine Nitrite Negative (NEG) Urine Bilirubin Negative (NEG) Urine Urobilinogen Dipstick 0.2 mg/dL (0.2 mg/dL) Urine Leukocyte Esterase Negative (NEG) Urine RBC Occ /HPF (0-2) Urine WBC 1-4 /HPF (0-4) Urine Squamous Epithelial Cells Few /LPF Urine Bacteria Few /HPF (0-FEW) Urine Mucus Mod /LPF Triglycerides Level 86 mg/dL (0-150) Cholesterol Level 120 mg/dL (0-200) LDL Cholesterol, Calculated 65 mg/dL (0-100) VLDL Cholesterol, Calculated 17 mg/dL (0-40) Non-HDL Cholesterol Calculated 82 mg/dL (0-129) HDL Cholesterol 38 mg/dL (40-60) Cholesterol/HDL Ratio 3.2 Laboratory Tests Test 03/28/19 19:40 03/28/19 22:30 03/29/19 00:45 03/29/19 01:45 White Blood Count 8.9 x10^3/uL (4.0-11.0) 6.1 x10^3/uL (4.0-11.0) Red Blood Count 4.79 x10^6/uL (4.30-5.70) 4.41 x10^6/uL (4.30-5.70) Hemoglobin 12.5 g/dL (13.0-17.5) 11.6 g/dL (13.0-17.5) Hematocrit 37.7 % (39.0-53.0) 34.8 % (39.0-53.0) Mean Corpuscular Volume 79 fL (79-100) 79 fL (79-100) Mean Corpuscular Hemoglobin 26 pg (25-35) 26 pg (25-35) Mean Corpuscular Hemoglobin Concent 33 g/dL (31-37) 33 g/dL (31-37) Red Cell Distribution Width 13.6 % (11.5-14.5) 13.7 % (11.5-14.5) Platelet Count 223 x10^3/uL (140-400) 210 x10^3/uL (140-400) Neutrophils (%) (Auto) 60 % (31-73) 47 % (31-73) Lymphocytes (%) (Auto) 31 % (24-48) 45 % (24-48) Monocytes (%) (Auto) 8 % (0-9) 7 % (0-9) Eosinophils (%) (Auto) 1 % (0-3) 1 % (0-3) Basophils (%) (Auto) 1 % (0-3) 1 % (0-3) Neutrophils # (Auto) 5.3 x10^3/uL (1.8-7.7) 2.9 x10^3/uL (1.8-7.7) Lymphocytes # (Auto) 2.7 x10^3/uL (1.0-4.8) 2.7 x10^3/uL (1.0-4.8) Monocytes # (Auto) 0.7 x10^3/uL (0.0-1.1) 0.4 x10^3/uL (0.0-1.1) Eosinophils # (Auto) 0.0 x10^3/uL (0.0-0.7) 0.1 x10^3/uL (0.0-0.7) Basophils # (Auto) 0.1 x10^3/uL (0.0-0.2) 0.0 x10^3/uL (0.0-0.2) Sodium Level 134 mmol/L (136-145) 135 mmol/L (136-145) Potassium Level 3.8 mmol/L (3.5-5.1) 3.7 mmol/L (3.5-5.1) Chloride Level 96 mmol/L (98-107) 99 mmol/L (98-107) Carbon Dioxide Level 26 mmol/L (21-32) 28 mmol/L (21-32) Anion Gap 12 (6-14) 8 (6-14) Blood Urea Nitrogen 20 mg/dL (8-26) 18 mg/dL (8-26) Creatinine 1.3 mg/dL (0.7-1.3) 0.9 mg/dL (0.7-1.3) Estimated GFR (Cockcroft-Gault) 72.9 111.4 BUN/Creatinine Ratio 15 (6-20) 20 (6-20) Glucose Level 288 mg/dL (70-99) 210 mg/dL (70-99) Calcium Level 9.3 mg/dL (8.5-10.1) 8.8 mg/dL (8.5-10.1) Total Bilirubin 0.6 mg/dL (0.2-1.0) 0.9 mg/dL (0.2-1.0) Aspartate Amino Transf (AST/SGOT) 98 U/L (15-37) 226 U/L (15-37) Alanine Aminotransferase (ALT/SGPT) 18 U/L (16-63) 52 U/L (16-63) Alkaline Phosphatase 111 U/L (46-116) 117 U/L (46-116) Troponin I Quantitative 20.381 ng/mL (0.000-0.055) 26.578 ng/mL (0.000-0.055) 32.225 ng/mL (0.000-0.055) Total Protein 7.9 g/dL (6.4-8.2) 7.0 g/dL (6.4-8.2) Albumin 4.1 g/dL (3.4-5.0) 3.5 g/dL (3.4-5.0) Albumin/Globulin Ratio 1.1 (1.0-1.7) 1.0 (1.0-1.7) Lipase 207 U/L (73-393) Urine Collection Type Unknown Urine Color Yellow Urine Clarity Clear Urine pH 5.5 Urine Specific [place] 1.020 Urine Protein Negative mg/dL (NEG-TRACE) Urine Glucose (UA) >=1000 mg/dL (NEG) Urine Ketones (Stick) Negative mg/dL (NEG) Urine Blood Negative (NEG) Urine Nitrite Negative (NEG) Urine Bilirubin Negative (NEG) Urine Urobilinogen Dipstick 0.2 mg/dL (0.2 mg/dL) Urine Leukocyte Esterase Negative (NEG) Urine RBC Occ /HPF (0-2) Urine WBC 1-4 /HPF (0-4) Urine Squamous Epithelial Cells Few /LPF Urine Bacteria Few /HPF (0-FEW) Urine Mucus Mod /LPF Triglycerides Level 86 mg/dL (0-150) Cholesterol Level 120 mg/dL (0-200) LDL Cholesterol, Calculated 65 mg/dL (0-100) VLDL Cholesterol, Calculated 17 mg/dL (0-40) Non-HDL Cholesterol Calculated 82 mg/dL (0-129) HDL Cholesterol 38 mg/dL (40-60) Cholesterol/HDL Ratio 3.2 Medications Current Medications Morphine Sulfate (Morphine Sulfate) 4 mg PRN Q15MIN PRN IV/SQ PAIN GREATER THAN 3/10 Last administered on 03/28/19at 19:47; Start 03/28/19 at 19:30; Stop 03/29/19 at 19:29 Sodium Chloride 1,000 ml @ 1,000 mls/hr Q1H IV Last administered on 03/28/19at 19:46; Start 03/28/19 at 19:30; Stop 03/28/19 at 20:29; Status DC Ondansetron HCl (Zofran) 4 mg 1X ONCE IV Last administered on 03/28/19at 19:47; Start 03/28/19 at 19:45; Stop 03/28/19 at 19:46; Status DC Heparin Sodium (Porcine) (Heparin Sodium) 4,000 unit 1X ONCE IV Last administered on 03/28/19at 20:35; Start 03/28/19 at 20:30; Stop 03/28/19 at 20:31; Status DC Heparin Sodium/ Dextrose 500 ml @ 0 mls/hr 1X ONCE IV Last administered on 03/28/19at 20:42; Start 03/28/19 at 21:00; Stop 03/28/19 at 21:01; Status DC Nitroglycerin (Nitrostat) 0.4 mg STK-MED ONCE SL ; Start 03/28/19 at 20:29; Stop 03/28/19 at 20:30; Status DC Aspirin (Children'S Aspirin) 324 mg 1X ONCE PO Last administered on 03/28/19at 20:45; Start 03/28/19 at 21:00; Stop 03/28/19 at 21:01; Status DC Nitroglycerin (Nitrostat) 0.4 mg PRN Q5MIN PRN SL CHEST PAIN Last administered on 03/28/19at 20:57; Start 03/28/19 at 20:45; Stop 03/28/19 at 23:37; Status DC Tirofiban/Sodium Chloride 100 ml @ 0 mls/hr CONT PRN IV PER PROTOCOL Last administered on 03/29/19at 00:57; Start 03/28/19 at 22:00; Stop 03/29/19 at 16:00 Ondansetron HCl (Zofran) 4 mg PRN Q8HRS PRN IV NAUSEA/VOMITING; Start 03/28/19 at 21:15; Stop 03/29/19 at 21:14 Morphine Sulfate (Morphine Sulfate) 2 mg PRN Q2HR PRN IV PAIN Last administered on 03/29/19at 02:41; Start 03/28/19 at 21:15; Stop 03/29/19 at 21:14 Nitroglycerin (Nitrostat) 0.4 mg PRN Q5MIN PRN SL CHEST PAIN; Start 03/28/19 at 21:15; Stop 03/29/19 at 21:14 Iodixanol (Visipaque 320) 100 ml STK-MED ONCE .ROUTE ; Start 03/29/19 at 03:29; Stop 03/29/19 at 03:29; Status DC Lidocaine HCl (Lidocaine 1% 20ml Vial) 20 ml STK-MED ONCE .ROUTE ; Start 03/29/19 at 03:29; Stop 03/29/19 at 03:29; Status DC Heparin Sodium/ Sodium Chloride 1,500 ml @ As Directed STK-MED ONCE .ROUTE ; Start 03/29/19 at 03:29; Stop 03/29/19 at 03:29; Status DC Famotidine (Pepcid Vial) 20 mg 1X ONCE IVP Last administered on 03/29/19at 03:45; Start 03/29/19 at 03:45; Stop 03/29/19 at 03:46; Status DC Diphenhydramine HCl (Benadryl) 50 mg 1X ONCE IVP Last administered on 03/29/19at 03:45; Start 03/29/19 at 03:45; Stop 03/29/19 at 03:46; Status DC Methylprednisolone Sodium Succinate (SOLU-Medrol 125MG VIAL) 125 mg 1X ONCE IV Last administered on 03/29/19at 03:45; Start 03/29/19 at 03:45; Stop 03/29/19 at 03:46; Status DC Morphine Sulfate (Morphine Sulfate) 10 mg STK-MED ONCE .ROUTE ; Start 03/29/19 at 03:48; Stop 03/29/19 at 03:48; Status DC Methylprednisolone Sodium Succinate (SOLU-Medrol 125MG VIAL) 125 mg STK-MED ONCE .ROUTE ; Start 03/29/19 at 03:48; Stop 03/29/19 at 03:49; Status DC Midazolam HCl (Versed) 2 mg STK-MED ONCE .ROUTE ; Start 03/29/19 at 03:49; Stop 03/29/19 at 03:49; Status DC Heparin Sodium (Porcine) (Heparin Sodium) 10,000 unit STK-MED ONCE .ROUTE ; Start 03/29/19 at 03:49; Stop 03/29/19 at 03:49; Status DC Verapamil HCl (Verapamil) 5 mg STK-MED ONCE .ROUTE ; Start 03/29/19 at 03:49; Stop 03/29/19 at 03:49; Status DC Famotidine (Pepcid Vial) 20 mg STK-MED ONCE .ROUTE ; Start 03/29/19 at 03:49; Stop 03/29/19 at 03:49; Status DC Diphenhydramine HCl (Benadryl) 50 mg STK-MED ONCE .ROUTE ; Start 03/29/19 at 03:49; Stop 03/29/19 at 03:49; Status DC Nitroglycerin (Nitroglycerin) 200 mcg STK-MED ONCE .ROUTE ; Start 03/29/19 at 03:49; Stop 03/29/19 at 03:49; Status DC Bivalirudin (Angiomax) 250 mg STK-MED ONCE IV ; Start 03/29/19 at 04:04; Stop 03/29/19 at 04:04; Status DC Heparin Sodium/ Sodium Chloride (HEPARIN for ARTERIAL LINE FLUSH) 1,000 unit 1X ONCE IART Last administered on 03/29/19at 04:15; Start 03/29/19 at 04:15; Stop 03/29/19 at 04:37; Status DC Heparin Sodium/ Sodium Chloride (HEPARIN for ARTERIAL LINE FLUSH) 1,000 unit 1X ONCE IART Last administered on 03/29/19at 04:15; Start 03/29/19 at 04:15; Stop 03/29/19 at 04:37; Status DC Midazolam HCl (Versed) 2 mg 1X ONCE IV Last administered on 03/29/19at 04:15; Start 03/29/19 at 04:15; Stop 03/29/19 at 04:39; Status DC Iodixanol (Visipaque 320) 100 ml 1X ONCE IART Last administered on 03/29/19at 04:15; Start 03/29/19 at 04:15; Stop 03/29/19 at 04:40; Status DC Bivalirudin (Angiomax) 250 mg 1X ONCE IV Last administered on 03/29/19at 04 :15; Start 03/29/19 at 04:15; Stop 03/29/19 at 04:37; Status DC Lidocaine HCl (Lidocaine 1% 20ml Vial) 20 ml 1X ONCE INJ Last administered on 03/29/19at 04:15; Start 03/29/19 at 04:15; Stop 03/29/19 at 04:39; Status DC Morphine Sulfate (Morphine Sulfate) 10 mg 1X ONCE IV ; Start 03/29/19 at 04:15; Stop 03/29/19 at 04:39; Status DC Nitroglycerin (Nitroglycerin) 200 mcg 1X ONCE IART Last administered on 03/29/19at 04:28; Start 03/29/19 at 04:30; Stop 03/29/19 at 04:39; Status DC Diphenhydramine HCl (Benadryl) 50 mg STK-MED ONCE .ROUTE ; Start 03/29/19 at 04:23; Stop 03/29/19 at 04:24; Status DC Diphenhydramine HCl (Benadryl) 25 mg 1X ONCE IVP Last administered on 03/29/19at 04:29; Start 03/29/19 at 04:30; Stop 03/29/19 at 04:37; Status DC Clopidogrel Bisulfate (Plavix) 75 mg STK-MED ONCE .ROUTE ; Start 03/29/19 at 04:33; Stop 03/29/19 at 04:33; Status DC Clopidogrel Bisulfate (Plavix) 600 mg 1X ONCE PO Last administered on 03/29/19at 04:48; Start 03/29/19 at 04:45; Stop 03/29/19 at 04:46; Status DC Sodium Chloride 1,000 ml @ 125 mls/hr Q8H IV ; Start 03/29/19 at 04:45; Stop 03/29/19 at 12:44 Aspirin (Ecotrin) 325 mg DAILYWBKFT PO ; Start 03/30/19 at 08:00 Clopidogrel Bisulfate (Plavix) 75 mg DAILYWBKFT PO ; Start 03/30/19 at 08:00 Metoprolol Tartrate (Lopressor) 25 mg BID PO Last administered on 03/29/19at 09:15; Start 03/29/19 at 09:00 Losartan Potassium (Cozaar) 50 mg DAILY PO Last administered on 03/29/19at 09:15; Start 03/29/19 at 09:00 Atorvastatin Calcium (Lipitor) 40 mg QHS PO ; Start 03/29/19 at 21:00 Tramadol HCl (Ultram) 50 mg PRN Q6HRS PRN PO PAIN; Start 03/29/19 at 08:45 Ondansetron HCl (Zofran) 4 mg PRN Q6HRS PRN IVP NAUSEA/VOMITING; Start 03/29/19 at 08:45 Morphine Sulfate (Morphine Sulfate) 2 mg PRN Q2HR PRN IV PAIN; Start 03/29/19 at 08:45 Temazepam (Restoril) 7.5 mg PRN QHS PRN PO INSOMNIA; Start 03/29/19 at 08:45 Calcium Carbonate/ Glycine (Tums) 500 mg PRN AFTMEALHC PRN PO INDIGESTION; Start 03/29/19 at 08:45 Amlodipine Besylate (Norvasc) 10 mg DAILY PO Last administered on 03/29/19at 09:14; Start 03/29/19 at 09:00 Hydralazine HCl (Apresoline) 100 mg TID PO Last administered on 03/29/19at 09:16; Start 03/29/19 at 09:00 Losartan Potassium (Cozaar) 50 mg DAILY PO ; Start 03/29/19 at 09:00 Metformin HCl (Glucophage) 500 mg BIDWMEALS PO ; Start 03/31/19 at 17:00 Active Scripts Active Metformin Hcl 500 Mg Tablet 500 Mg PO BIDWMEALS 30 Days Cozaar (Losartan Potassium) 50 Mg Tablet 50 Mg PO DAILY 30 Days Hydralazine Hcl 50 Mg Tablet 100 Mg PO TID 30 Days Amlodipine Besylate 5 Mg Tablet 10 Mg PO DAILY 30 Days Vitals/I & O Vital Sign - Last 24 Hours 03/28/19 03/28/19 03/28/19 03/28/19 19:20 19:44 19:47 20:14 Temp 99.1 99.1 Pulse 96 104 100 Resp 17 B/P (MAP) 164/109 (127) 145/103 (117) 149/98 (115) Pulse Ox 99 98 99 97 O2 Delivery Room Air Room Air 03/28/19 03/28/19 03/28/19 03/28/19 20:31 20:41 20:44 20:47 Pulse 100 110 108 107 Resp 18 15 B/P (MAP) 156/105 (122) 132/86 (101) 129/86 (100) 136/86 Pulse Ox 97 97 97 O2 Delivery Room Air Room Air Room Air 03/28/19 03/28/19 03/28/19 03/28/19 20:56 20:57 21:14 21:44 Pulse 106 105 102 98 Resp 17 16 15 B/P (MAP) 133/89 (104) 133/89 131/92 (105) 134/92 (106) Pulse Ox 96 96 96 O2 Delivery Room Air Room Air Room Air 03/28/19 03/28/19 03/28/19 03/28/19 22:00 22:30 22:31 23:00 Pulse 98 96 92 Resp 16 18 13 17 B/P (MAP) 136/90 (105) 126/83 (97) 128/82 (97) Pulse Ox 97 97 97 97 O2 Delivery Room Air Room Air Room Air 03/28/19 03/28/19 03/29/19 03/29/19 23:30 23:55 00:01 00:58 Temp 98.2 98.2 Pulse 98 94 Resp 16 18 18 B/P (MAP) 134/92 (106) 139/90 (106) Pulse Ox 97 98 98 O2 Delivery Room Air Room Air Room Air 03/29/19 03/29/19 03/29/19 03/29/19 02:02 02:41 04:15 04:43 Temp 98.5 98.5 Pulse 97 93 Resp 18 18 14 14 B/P (MAP) 144/95 (111) Pulse Ox 97 97 100 99 O2 Delivery Room Air Room Air Nasal Cannula Room Air O2 Flow Rate 2.0 03/29/19 03/29/19 03/29/19 03/29/19 04:50 04:58 05:13 05:28 Temp 97.4 97.4 Pulse 92 88 91 90 Resp 18 18 18 B/P (MAP) 133/86 (102) 134/88 (103) 144/94 (111) 142/93 (109) Pulse Ox 97 99 98 O2 Delivery Room Air Room Air Room Air Room Air 03/29/19 03/29/19 03/29/19 03/29/19 05:44 05:58 06:13 06:28 Pulse 91 86 88 86 Resp 18 18 18 18 B/P (MAP) 139/91 (107) 139/89 (106) 137/91 (106) 143/95 (111) Pulse Ox 96 90 98 O2 Delivery Room Air Room Air Room Air Room Air 03/29/19 03/29/19 03/29/19 03/29/19 06:58 07:00 08:00 09:14 Temp 97.8 97.8 Pulse 90 87 90 Resp 18 20 B/P (MAP) 141/94 (110) 140/94 (109) 141/94 Pulse Ox 98 98 O2 Delivery Room Air Room Air Room Air 03/29/19 03/29/19 03/29/19 03/29/19 09:15 09:15 09:16 09:48 Pulse 90 90 90 B/P (MAP) 141/94 141/94 141/94 Pulse Ox 98 O2 Delivery Room Air O2 Flow Rate 2.0 03/29/19 11:00 Temp 97.9 97.9 Pulse 86 Resp 18 B/P (MAP) 136/92 (107) Pulse Ox 99 O2 Delivery Room Air Intake and Output 03/28/19 03/28/19 03/29/19 14:59 22:59 06:59 Intake Total 1100 ml 0 ml Output Total 675 ml Balance 1100 ml -675 ml EMMY SANCHEZ MD Mar 29, 2019 11:13
[2019-03-29] MEDS ORDERED: INSULIN LISPRO 300 UNITS/3 ML VIAL. SQ ONE (12:30)
--- NOTE | 2019-03-29 15:14 | NUR ---
SS following for discharge planning. SS reviewed pt chart. Pt is from home and is currently on room air. SS will continue to follow for discharge planning.
[2019-03-29] MEDS: INSULIN LISPRO 300 UNITS/3 ML VIAL. SQ SCH (18:39)
[2019-03-29] MEDS ORDERED: ATORVASTATIN CALCIUM 20 MG TABLET PO SCH (21:00)
[2019-03-29] MEDS ORDERED: INSULIN GLARGINE SYRINGE. SQ SCH (21:00)
[2019-03-29 23:07] LABS: HEMOGLOBIN A1C 13.9 % (4.8-5.6)
[2019-03-30 03:19] VITALS: BP 110/90
[2019-03-30 05:30] LABS: BASO % 0 % (0-3); EOS % 1 % (0-3); HEMATOCRIT 34.6 % (39.0-53.0); HEMOGLOBIN 11.5 g/dL (13.0-17.5); LYMPH # 2.6 x10^3/uL (1.0-4.8); LYMPH % 32 % (24-48); MEAN CORPUSCULAR HEMOGLOBIN 26 pg (25-35); MEAN CORPUSCULAR HGB CONC 33 g/dL (31-37); MEAN CORPUSCULAR VOLUME 79 fL (79-100); MONO # 0.8 x10^3/uL (0.0-1.1); MONO % 10 % (0-9); NEUT # 4.7 x10^3/uL (1.8-7.7); NEUT % 58 % (31-73); PLATELET COUNT 207 x10^3/uL (140-400); RED BLOOD COUNT 4.38 x10^6/uL (4.30-5.70); RED CELL DISTRIBUTION WIDTH 13.8 % (11.5-14.5); WHITE BLOOD COUNT 8.1 x10^3/uL (4.0-11.0)
[2019-03-30 05:50] LABS: CALCIUM 8.6 mg/dL (8.5-10.1); CREATININE 0.9 mg/dL (0.7-1.3); GFR 111.4; POTASSIUM 4.2 mmol/L (3.5-5.1)
[2019-03-30 07:00] VITALS: BP 119/71
[2019-03-30] MEDS: LOSARTAN POTASSIUM 50 MG TABLET. PO SCH ×2 (07:11→10:57)
[2019-03-30] MEDS ORDERED: ASPIRIN ENTERIC COATED 325 MG TABLET.DR. PO SCH (08:00)
[2019-03-30] MEDS ORDERED: CLOPIDOGREL BISULFATE 75 MG TABLET PO SCH (08:00)
[2019-03-30] MEDS ORDERED: LOSA-73 PO (09:02)
[2019-03-30] MEDS ORDERED: METF500T16 PO (09:02)
[2019-03-30] MEDS ORDERED: INSU100I11 SQ (09:02)
[2019-03-30] MEDS ORDERED: INSU100V8 SQ (09:02)
[2019-03-30] MEDS ORDERED: ASPI325T11 PO (09:02)
[2019-03-30] MEDS ORDERED: AMLO5TAB10 PO (09:02)
[2019-03-30] MEDS ORDERED: CLOP75TA PO (09:02)
[2019-03-30] MEDS ORDERED: METO25TA4 PO (09:02)
[2019-03-30] MEDS ORDERED: ATOR20TA58 PO (09:02)
[2019-03-30] MEDS ORDERED: HYDR-2869 PO (09:02)
--- NOTE | 2019-03-30 10:24 | CARD ---
MR#: [id number] Date of Study: 03/30/2019 Ordering Physician: THOR KAMINSKI, Referring Physician: THOR KAMINSKI, Tech: Laisha Oliveira APPROVED REPORT EXAM: Two-dimensional and M-mode echocardiogram with Doppler and color Doppler. Other Information Quality : AverageHR: 73bpm INDICATION Non STEMI RISK FACTORS Hypertension Diabetes Smoking 2D DIMENSIONS RVDd3.0 (2.9-3.5cm)Left Atrium(2D)3.1 (1.6-4.0cm) IVSd1.2 (0.7-1.1cm)Aortic Root(2D)3.7 (2.0-3.7cm) LVDd5.1 (3.9-5.9cm)LVOT Diameter2.3 (1.8-2.4cm) PWd1.1 (0.7-1.1cm)LVDs4.3 (2.5-4.0cm) FS (%) 16.4 %SV42.7 ml Aortic Valve AoV Peak Kuldeep.132.4cm/sAoV VTI21.7cm AO Peak GR.7.0mmHgLVOT Peak Kuldeep.80.4cm/s LVOT VTI 13.67cmAO Mean GR.4mmHg HILARIO (VMAX)1.77hu4PYL (VTI)2.56cm2 AI P 1/2 [id number] Mitral Valve MV E Hgsytoye07.9cm/sMV E Peak Gr.121mmHg MV DECEL [id number] A Tkpygeld96.8cm/s MV E Mean Gr.1mmHgMV AVY62bn E/A Ratio0.7MVA (PHT)2.98cm2 TDI E/Lateral E'8.8E/Medial E'10.3 Pulmonary Valve PV Peak Xnsvezkd55.6cm/sPV Peak Grad.2mmHg Tricuspid Valve TR P. Gnsphlqq618ex/sRAP SVHNILAK5wjSg TR Peak Gr.57zkLuMXJZ15itCr Pulmonary Vein S1 Lwjpfijj37.5cm/sD2 Mcrrylhe56.0cm/s LEFT VENTRICLE The left ventricle is normal size. There is mild concentric left ventricular hypertrophy. The systoli c function is moderately to severely impaired. The Ejection Fraction is 25 to 30%. There is akinesis in the apical septal wall. Transmitral Doppler flow pattern is Grade I-abnormal relaxation pattern. RIGHT VENTRICLE The right ventricle is normal size. There is normal right ventricular wall thickness. The right ventr icular systolic function is normal. ATRIA The left atrium size is normal. The right atrium size is normal. The interatrial septum is intact wit h no evidence for an atrial septal defect or patent foramen ovale as noted on 2-D or Doppler imaging. AORTIC VALVE The aortic valve is normal in structure and function. Doppler and Color Flow revealed mild aortic reg urgitation. There is no significant aortic valvular stenosis. MITRAL VALVE The mitral valve is normal in structure and function. There is no evidence of mitral valve prolapse. There is no mitral valve stenosis. Doppler and Color-flow revealed mild to moderate mitral regurgitat ion. TRICUSPID VALVE The tricuspid valve is normal in structure and function. Doppler and Color Flow revealed trace tricus pid regurgitation with an estimated PAP of 35 mmHg. There is no tricuspid valve stenosis. PULMONIC VALVE The pulmonic valve is not well visualized. Doppler and Color Flow revealed no pulmonic valvular regur gitation. GREAT VESSELS The aortic root is normal in size. The IVC is dilated and collapses >50% with inspiration. PERICARDIAL EFFUSION There is a mild pericardial effusion with no hemodynamic compromise. Critical Notification Critical Value: No <Conclusion> The left ventricle is normal size. The systolic function is moderately to severely impaired. The Ejection Fraction is 25 to 30%. There is akinesis in the apical septal wall. There is mild concentric left ventricular hypertrophy. Doppler and Color Flow revealed mild aortic regurgitation. There is no significant aortic valvular stenosis. Doppler and Color-flow revealed mild to moderate mitral regurgitation. Doppler and Color Flow revealed trace tricuspid regurgitation with an estimated PAP of 35 mmHg. There is a mild pericardial effusion with no hemodynamic compromise. Signed by : Salvador Smith MD Electronically Approved : 03/30/2019 10:23:52
[2019-03-30] MEDS: METOPROLOL TART IMMED RELEASE 25 MG TABLET. PO SCH (10:56)
[2019-03-30] MEDS: amLODIPine BESYLATE 10 MG TABLET PO SCH (10:56)
[2019-03-30 11:00] VITALS: BP 101/64
--- NOTE | 2019-03-30 11:00 | PDOC3 ---
Discharge Summary Visit Information Date of Admission: Mar 29, 2019 Date of Discharge: Mar 30, 2019 Admitting Diagnosis Comment: 1. Non-STEMI. s/p stat [facility] 03/29 2. Ischemic cardiomyopathy/chronic systolic heart failure: Patient's LVEF was 30-35% in 2014 that improved to 45% in 2015. 3. Hypertension: Well-controlled 4. Patent foramen ovale by history without any paradoxical embolization 5. Abdominal/flank pain resolved Final Diagnosis Problems Medical Problems: (1) Diabetes Status: Acute (2) Elevated troponin Status: Acute (3) Epigastric abdominal pain Status: Acute (4) HTN (hypertension) Status: Acute Brief Hospital Course Allergies Allergies Coded Allergies Type Severity Reaction Last Updated Verified Iodine and Iodide Containing Produc Allergy Severe Anaphylaxis 03/29/19 Yes hydrocodone Allergy Severe itching all over body, tolerates Morphine OK 04/24/15 Yes fentanyl Allergy Intermediate Nausea and Vomiting 12/24/15 Yes Vital Signs Vital Signs Date Time Temp Pulse Resp B/P (MAP) Pulse Ox O2 Delivery O2 Flow Rate FiO2 03/30/19 08:00 Room Air 03/30/19 07:00 97.9 78 18 119/71 (87) 98 97.9 03/29/19 09:48 2.0 Lab Results Laboratory Tests Test 03/28/19 19:40 03/28/19 22:30 03/29/19 00:45 03/29/19 01:45 White Blood Count 8.9 x10^3/uL (4.0-11.0) 6.1 x10^3/uL (4.0-11.0) Red Blood Count 4.79 x10^6/uL (4.30-5.70) 4.41 x10^6/uL (4.30-5.70) Hemoglobin 12.5 g/dL (13.0-17.5) 11.6 g/dL (13.0-17.5) Hematocrit 37.7 % (39.0-53.0) 34.8 % (39.0-53.0) Mean Corpuscular Volume 79 fL (79-100) 79 fL (79-100) Mean Corpuscular Hemoglobin 26 pg (25-35) 26 pg (25-35) Mean Corpuscular Hemoglobin Concent 33 g/dL (31-37) 33 g/dL (31-37) Red Cell Distribution Width 13.6 % (11.5-14.5) 13.7 % (11.5-14.5) Platelet Count 223 x10^3/uL (140-400) 210 x10^3/uL (140-400) Neutrophils (%) (Auto) 60 % (31-73) 47 % (31-73) Lymphocytes (%) (Auto) 31 % (24-48) 45 % (24-48) Monocytes (%) (Auto) 8 % (0-9) 7 % (0-9) Eosinophils (%) (Auto) 1 % (0-3) 1 % (0-3) Basophils (%) (Auto) 1 % (0-3) 1 % (0-3) Neutrophils # (Auto) 5.3 x10^3/uL (1.8-7.7) 2.9 x10^3/uL (1.8-7.7) Lymphocytes # (Auto) 2.7 x10^3/uL (1.0-4.8) 2.7 x10^3/uL (1.0-4.8) Monocytes # (Auto) 0.7 x10^3/uL (0.0-1.1) 0.4 x10^3/uL (0.0-1.1) Eosinophils # (Auto) 0.0 x10^3/uL (0.0-0.7) 0.1 x10^3/uL (0.0-0.7) Basophils # (Auto) 0.1 x10^3/uL (0.0-0.2) 0.0 x10^3/uL (0.0-0.2) Sodium Level 134 mmol/L (136-145) 135 mmol/L (136-145) Potassium Level 3.8 mmol/L (3.5-5.1) 3.7 mmol/L (3.5-5.1) Chloride Level 96 mmol/L (98-107) 99 mmol/L (98-107) Carbon Dioxide Level 26 mmol/L (21-32) 28 mmol/L (21-32) Anion Gap 12 (6-14) 8 (6-14) Blood Urea Nitrogen 20 mg/dL (8-26) 18 mg/dL (8-26) Creatinine 1.3 mg/dL (0.7-1.3) 0.9 mg/dL (0.7-1.3) Estimated GFR (Cockcroft-Gault) 72.9 111.4 BUN/Creatinine Ratio 15 (6-20) 20 (6-20) Glucose Level 288 mg/dL (70-99) 210 mg/dL (70-99) Calcium Level 9.3 mg/dL (8.5-10.1) 8.8 mg/dL (8.5-10.1) Total Bilirubin 0.6 mg/dL (0.2-1.0) 0.9 mg/dL (0.2-1.0) Aspartate Amino Transf (AST/SGOT) 98 U/L (15-37) 226 U/L (15-37) Alanine Aminotransferase (ALT/SGPT) 18 U/L (16-63) 52 U/L (16-63) Alkaline Phosphatase 111 U/L (46-116) 117 U/L (46-116) Troponin I Quantitative 20.381 ng/mL (0.000-0.055) 26.578 ng/mL (0.000-0.055) 32.225 ng/mL (0.000-0.055) Total Protein 7.9 g/dL (6.4-8.2) 7.0 g/dL (6.4-8.2) Albumin 4.1 g/dL (3.4-5.0) 3.5 g/dL (3.4-5.0) Albumin/Globulin Ratio 1.1 (1.0-1.7) 1.0 (1.0-1.7) Lipase 207 U/L (73-393) Urine Collection Type Unknown Urine Color Yellow Urine Clarity Clear Urine pH 5.5 Urine Specific [place] 1.020 Urine Protein Negative mg/dL (NEG-TRACE) Urine Glucose (UA) >=1000 mg/dL (NEG) Urine Ketones (Stick) Negative mg/dL (NEG) Urine Blood Negative (NEG) Urine Nitrite Negative (NEG) Urine Bilirubin Negative (NEG) Urine Urobilinogen Dipstick 0.2 mg/dL (0.2 mg/dL) Urine Leukocyte Esterase Negative (NEG) Urine RBC Occ /HPF (0-2) Urine WBC 1-4 /HPF (0-4) Urine Squamous Epithelial Cells Few /LPF Urine Bacteria Few /HPF (0-FEW) Urine Mucus Mod /LPF Hemoglobin A1c 13.9 % (4.8-5.6) Triglycerides Level 86 mg/dL (0-150) Cholesterol Level 120 mg/dL (0-200) LDL Cholesterol, Calculated 65 mg/dL (0-100) VLDL Cholesterol, Calculated 17 mg/dL (0-40) Non-HDL Cholesterol Calculated 82 mg/dL (0-129) HDL Cholesterol 38 mg/dL (40-60) Cholesterol/HDL Ratio 3.2 Test 03/29/19 12:08 03/29/19 17:04 03/29/19 21:09 03/30/19 04:30 Glucose (Fingerstick) 349 mg/dL (70-99) 215 mg/dL (70-99) 185 mg/dL (70-99) White Blood Count 8.1 x10^3/uL (4.0-11.0) Red Blood Count 4.38 x10^6/uL (4.30-5.70) Hemoglobin 11.5 g/dL (13.0-17.5) Hematocrit 34.6 % (39.0-53.0) Mean Corpuscular Volume 79 fL (79-100) Mean Corpuscular Hemoglobin 26 pg (25-35) Mean Corpuscular Hemoglobin Concent 33 g/dL (31-37) Red Cell Distribution Width 13.8 % (11.5-14.5) Platelet Count 207 x10^3/uL (140-400) Neutrophils (%) (Auto) 58 % (31-73) Lymphocytes (%) (Auto) 32 % (24-48) Monocytes (%) (Auto) 10 % (0-9) Eosinophils (%) (Auto) 1 % (0-3) Basophils (%) (Auto) 0 % (0-3) Neutrophils # (Auto) 4.7 x10^3/uL (1.8-7.7) Lymphocytes # (Auto) 2.6 x10^3/uL (1.0-4.8) Monocytes # (Auto) 0.8 x10^3/uL (0.0-1.1) Eosinophils # (Auto) 0.0 x10^3/uL (0.0-0.7) Basophils # (Auto) 0.0 x10^3/uL (0.0-0.2) Sodium Level 135 mmol/L (136-145) Potassium Level 4.2 mmol/L (3.5-5.1) Chloride Level 99 mmol/L (98-107) Carbon Dioxide Level 28 mmol/L (21-32) Anion Gap 8 (6-14) Blood Urea Nitrogen 20 mg/dL (8-26) Creatinine 0.9 mg/dL (0.7-1.3) Estimated GFR (Cockcroft-Gault) 111.4 Glucose Level 292 mg/dL (70-99) Calcium Level 8.6 mg/dL (8.5-10.1) Magnesium Level 1.8 mg/dL (1.8-2.4) Thyroid Stimulating Hormone (TSH) 1.012 uIU/mL (0.358-3.74) Test 03/30/19 07:41 Glucose (Fingerstick) 250 mg/dL (70-99) Laboratory Tests Test 03/29/19 12:08 03/29/19 17:04 03/29/19 21:09 03/30/19 04:30 Glucose (Fingerstick) 349 mg/dL (70-99) 215 mg/dL (70-99) 185 mg/dL (70-99) White Blood Count 8.1 x10^3/uL (4.0-11.0) Red Blood Count 4.38 x10^6/uL (4.30-5.70) Hemoglobin 11.5 g/dL (13.0-17.5) Hematocrit 34.6 % (39.0-53.0) Mean Corpuscular Volume 79 fL (79-100) Mean Corpuscular Hemoglobin 26 pg (25-35) Mean Corpuscular Hemoglobin Concent 33 g/dL (31-37) Red Cell Distribution Width 13.8 % (11.5-14.5) Platelet Count 207 x10^3/uL (140-400) Neutrophils (%) (Auto) 58 % (31-73) Lymphocytes (%) (Auto) 32 % (24-48) Monocytes (%) (Auto) 10 % (0-9) Eosinophils (%) (Auto) 1 % (0-3) Basophils (%) (Auto) 0 % (0-3) Neutrophils # (Auto) 4.7 x10^3/uL (1.8-7.7) Lymphocytes # (Auto) 2.6 x10^3/uL (1.0-4.8) Monocytes # (Auto) 0.8 x10^3/uL (0.0-1.1) Eosinophils # (Auto) 0.0 x10^3/uL (0.0-0.7) Basophils # (Auto) 0.0 x10^3/uL (0.0-0.2) Sodium Level 135 mmol/L (136-145) Potassium Level 4.2 mmol/L (3.5-5.1) Chloride Level 99 mmol/L (98-107) Carbon Dioxide Level 28 mmol/L (21-32) Anion Gap 8 (6-14) Blood Urea Nitrogen 20 mg/dL (8-26) Creatinine 0.9 mg/dL (0.7-1.3) Estimated GFR (Cockcroft-Gault) 111.4 Glucose Level 292 mg/dL (70-99) Calcium Level 8.6 mg/dL (8.5-10.1) Magnesium Level 1.8 mg/dL (1.8-2.4) Thyroid Stimulating Hormone (TSH) 1.012 uIU/mL (0.358-3.74) Test 03/30/19 07:41 Glucose (Fingerstick) 250 mg/dL (70-99) Brief Hospital Course Mr. Loo is a 43 old AA Male DM with hgba1c 13, admitted for CP and needed stat C with 1 stent, NEw cardiac meds and non compliance with HOME BP meds, SBP very high, BS 300s, I AHD TO REWRITE ALL HIS BP MEDS and start some insulin HEw as only taking metformin and 2 BP meds at home MED COMPLIANCE EMPHASIZED TO HIM, ASA< plavix, BB< losartan etc all on chart Proc; [facility] COnsults: cards No pT needs Discharge Information Condition at Discharge: Improved, Stable Follow Up: Weeks (cards as instructed) Disposition/Orders: D/C to Home Scheduled Amlodipine Besylate (Amlodipine Besylate) 5 Mg Tablet, 10 MG PO DAILY for HTN for 30 Days, #60 Ref 2 Prescribed by: EMMY SANCHEZ on 03/30/19 0902 Aspirin (Aspirin Ec) 325 Mg Tablet., 325 MG PO DAILYWBKFT for cad, #90 Prescribed by: EMMY SANCHEZ on 03/30/19901 Atorvastatin Calcium (Atorvastatin Calcium) 20 Mg Tablet, 40 MG PO QHS for cad, #60 Prescribed by: EMMY SANCHEZ on 03/30/19901 Clopidogrel Bisulfate (Clopidogrel) 75 Mg Tablet, 75 MG PO DAILYWBKFT for cad, #60 Prescribed by: EMMY SANCHEZ on 03/30/19901 Hydralazine Hcl (Hydralazine Hcl) 50 Mg Tablet, 100 MG PO TID for HTN for 30 Days, #90 Ref 2 Prescribed by: EMMY SANCHEZ on 03/30/19901 Insulin Glargine,Hum.rec.anlog (Lantus) 100 Unit/1 Ml Vial, 20 UNIT SQ QHS for dm for 30 Days Prescribed by: EMMY SANCHEZ on 03/30/19901 Insulin Lispro (Humalog) 100 Unit/1 Ml Insuln.pen, 10 UNITS SQ TIDWMEALS for dm for 30 Days Prescribed by: EMMY SANCHEZ on 03/30/19901 Losartan Potassium (Cozaar ) 50 Mg Tablet, 50 MG PO DAILY for HTN/DM2 for 30 Days, #60 Ref 2 Prescribed by: EMMY SANCHEZ on 03/30/19901 Metformin Hcl (Metformin Hcl) 500 Mg Tablet, 500 MG PO BIDWMEALS for ANTI- DIABETIC for 30 Days, #60 Ref 2 Prescribed by: EMMY SANCHEZ on 03/30/19901 Metoprolol Tartrate (Metoprolol Tartrate) 25 Mg Tablet, 25 MG PO BID for htn, #60 Prescribed by: EMMY SANCHEZ on 03/30/19901 EMMY SANCHEZ MD Mar 30, 2019 11:00
[2019-03-30] MEDS: INSULIN LISPRO 300 UNITS/3 ML VIAL. SQ SCH ×2 (11:03→13:32)
[2019-03-30] MEDS ORDERED: FLU VAX QS 2019-20 (36MOS+)/PF 0.5 ML SYRINGE. VAX IM ONE (12:00)
--- NOTE | 2019-03-30 12:22 | NUR ---
SS following up with discharge planning. SS received order for Life Vest. SS phoned and faxed Life Vest order and clinical to Elena [address] at [facility], ; fax [phone]. Discharge order on the chart for home once Life Vest is received. SS will continue to follow for discharge planning.
--- NOTE | 2019-03-30 14:33 | PDOC ---
THOR KAMINSKI FEDERAL MEDIATOR 03/30/19 1432: CARDIO Progress Notes Date and Time Date of Service 03/30/2019 Time of Evaluation 1100 Subjective Subjective: No Chest Pain, No shortness of breath, No Palpitations Vitals Vitals Vital Signs Date Time Temp Pulse Resp B/P (MAP) Pulse Ox O2 Delivery O2 Flow Rate FiO2 03/30/19 11:00 97.0 79 18 101/64 (76) 98 Room Air 97.0 03/29/19 09:48 2.0 Weight Weight [ ] Input and Output Intake and Output Intake and Output 03/30/19 07:00 Intake Total 2550 ml Output Total 2500 ml Balance 50 ml Intake Oral 2450 ml IV Total 100 ml Output Urine Total 2500 ml # Voids 7 Laboratory Labs Laboratory Tests Test 03/29/19 17:04 03/29/19 21:09 03/30/19 04:30 03/30/19 07:41 Glucose (Fingerstick) 215 mg/dL (70-99) 185 mg/dL (70-99) 250 mg/dL (70-99) White Blood Count 8.1 x10^3/uL (4.0-11.0) Red Blood Count 4.38 x10^6/uL (4.30-5.70) Hemoglobin 11.5 g/dL (13.0-17.5) Hematocrit 34.6 % (39.0-53.0) Mean Corpuscular Volume 79 fL (79-100) Mean Corpuscular Hemoglobin 26 pg (25-35) Mean Corpuscular Hemoglobin Concent 33 g/dL (31-37) Red Cell Distribution Width 13.8 % (11.5-14.5) Platelet Count 207 x10^3/uL (140-400) Neutrophils (%) (Auto) 58 % (31-73) Lymphocytes (%) (Auto) 32 % (24-48) Monocytes (%) (Auto) 10 % (0-9) Eosinophils (%) (Auto) 1 % (0-3) Basophils (%) (Auto) 0 % (0-3) Neutrophils # (Auto) 4.7 x10^3/uL (1.8-7.7) Lymphocytes # (Auto) 2.6 x10^3/uL (1.0-4.8) Monocytes # (Auto) 0.8 x10^3/uL (0.0-1.1) Eosinophils # (Auto) 0.0 x10^3/uL (0.0-0.7) Basophils # (Auto) 0.0 x10^3/uL (0.0-0.2) Sodium Level 135 mmol/L (136-145) Potassium Level 4.2 mmol/L (3.5-5.1) Chloride Level 99 mmol/L (98-107) Carbon Dioxide Level 28 mmol/L (21-32) Anion Gap 8 (6-14) Blood Urea Nitrogen 20 mg/dL (8-26) Creatinine 0.9 mg/dL (0.7-1.3) Estimated GFR (Cockcroft-Gault) 111.4 Glucose Level 292 mg/dL (70-99) Calcium Level 8.6 mg/dL (8.5-10.1) Magnesium Level 1.8 mg/dL (1.8-2.4) Thyroid Stimulating Hormone (TSH) 1.012 uIU/mL (0.358-3.74) Test 03/30/19 12:30 Glucose (Fingerstick) 131 mg/dL (70-99) Physical Exam HEENT: Neck Supple W Full Motion Chest: Symmetric LUNGS: Clear to Auscultation Heart: S1S2, RRR (SR) Abdomen: Soft N/T Extremities: No Calf Tenderness Neurology: alert, oriented, follow commands Other Exams Right groin arteriotomy site intact, no erythema or swelling, neurovascular status to bilateral LE intact Assessment Assessment 1. NSTEMI: S/P PCI/KEATON to LAD with [employer]GY [employer]S LEAD to distal RCA with collateralization of the PDA 2. Uncontrolled DM: A1C 13.9 likely now insulin dependent with noted chronic pancreatitis 3. ICM: EF 25%, compensated. NYHA 1 4. HTN: controlled 5. Tobaccoism 6. Acute systolic CHF: compensated 7. Mild to mod MR Recommendations 1. Smoking cessation. Dietitian consult for DM and CAD 2. Lifevest and will reeval in 3 mo for AICD consideration 3. BB, ARB, statin, ASA 325 for 1 month then 81 mg thereafter and plavix 4. Follow up in 1 month 5. Cardiac rehab 6. He does follow up with GI as an outpt 7. 2L FR, daily wt, HBPM Lasix PRN 8. Insulin therapy per PCP TOM VILLAR MD 03/30/192045: CARDIO Progress Notes Assessment Assessment Patient seen and examined. Agree with MEDICAL BILLING COORDINATOR's assessment and plan. s/p PCI/KETAON presently stable and chest pain free Ischemic cardiomyopathy compensated Plan repeat echo in 3 mos to evaluate need for ICD implantation THOR KAMINSKI APRN Mar 30, 2019 14:32 TOM VILLAR MD Mar 30, 2019 20:46
[2019-03-30 15:00] VITALS: BP 109/63
[2019-03-30] MEDS ORDERED: FUROSEMIDE 20 MG TABLET PO SCH (15:00)
--- NOTE | 2019-03-30 16:00 | NUR ---
SS following up with discharge planning. SS received phone contact from Elena St at [employer], ; fax [phone], stating that insurance authorization has been received and Alec RN will meet with pt in room between 1700 and 1730 to fit for Life Vest. Pt's RN notified.
--- NOTE | 2019-03-30 19:29 | NUR ---
Life vest in and educated patient. Life vest in place. Discharge Note: JONG PINO Discharge instructions and discharge home medications reviewed with Patient and a copy given. All questions have been answered and understanding verbalized. Prescriptions given to patient. Pt educated on insulin injections as well as how to check his BG. Follow up appointment reviewed with the patient and verbalized understanding. S/P coronary stent placement education given.
[2019-03-31] MEDS ORDERED: metFORMIN 500 MG TABLET PO SCH (17:00)
== END 2019-03-30 19:47 | disposition home or self-care (01) | DRG 246 ==
LOC: ER 18:26 → ED HOLD 20:45 → 2 SOUTH 23:35
PROVIDERS: ADMIT Internal Medicine; ATTEND Internal Medicine
PROC: 027034Z Dilation of Coronary Artery, One Artery with Drug-eluting Intraluminal Device, Percutaneous Approach (ICD-10-PCS; principal; 2019-03-29)
PROC: 4A023N7 Measurement of Cardiac Sampling and Pressure, Left Heart, Percutaneous Approach (ICD-10-PCS; 2019-03-29)
PROC: B2151ZZ Fluoroscopy of Left Heart using Low Osmolar Contrast (ICD-10-PCS; 2019-03-29)
PROC: B2111ZZ Fluoroscopy of Multiple Coronary Arteries using Low Osmolar Contrast (ICD-10-PCS; 2019-03-29)
DX: I21.4 Non-ST elevation (NSTEMI) myocardial infarction (principal); I50.23 Acute on chronic systolic (congestive) heart failure; K86.1 Other chronic pancreatitis; I25.10 Atherosclerotic heart disease of native coronary artery without angina pectoris; E11.65 Type 2 diabetes mellitus with hyperglycemia; E78.00 Pure hypercholesterolemia, unspecified; E78.5 Hyperlipidemia, unspecified; F17.200 Nicotine dependence, unspecified, uncomplicated; I11.0 Hypertensive heart disease with heart failure; I25.5 Ischemic cardiomyopathy; Z79.4 Long term (current) use of insulin; Z82.49 Family history of ischemic heart disease and other diseases of the circulatory system; Z91.19 Patient's noncompliance with other medical treatment and regimen; Z98.61 Coronary angioplasty status; Z83.3 Family history of diabetes mellitus; Z71.6 Tobacco abuse counseling; Z79.899 Other long term (current) drug therapy; Z88.8 Allergy status to other drugs, medicaments and biological substances
CPT/HCPCS: 92928; 93458; 96361; 96365; 96375; 96376; 99291; G0269; 36415; 74176; 80048; 80053; 80061; 81001; 82962; 83036; 83690; 83735; 84443; 84484; 85025; 93005; 93306; 99152; 99153; C1725; C1760; C1769; C1874; C1887; C1892; J0583; J1200; J1644; J1815; J2250; J2270; J2405; J2930; J3490; J7030; Q9967; C1713; C1771; G0378; J3246

== ENCOUNTER 2019-04-17 18:51 | Emergency (ER) | payer BC ==
[~2019-04-17] VITALS: Ht 175.3 cm; Wt 79.4 kg
[~2019-04-17 18:51] MED LIST changes: +ASPI325T11 PO; +ATOR20TA58 PO; +CLOP75TA PO; +INSU100I11 SQ; +INSU100V8 SQ; +METO25TA4 PO
[2019-04-17 19:48] VITALS: BP 132/92
[2019-04-17 20:26] LABS: INFLUENZA A PATIENT NEGATIVE (NEGATIVE); INFLUENZA B PATIENT NEGATIVE (NEGATIVE)
[2019-04-17] MEDS ORDERED: TRAM1TAB4 PO (20:31)
--- NOTE | 2019-04-17 20:31 | PHYS DOC ---
Past Medical History Past Medical History: CHF, Diabetes-Type II, High Cholesterol, Hypertension, Pancreatitis Additional Past Medical Histor: " LEAKY VALVE" Past Surgical History: Cholecystectomy Additional Past Surgical Histo: cardiac cath with stent placement Alcohol Use: Sober Drug Use: None Adult General Chief Complaint Chief Complaint: FLU SYMPTOM HPI HPI Patient is a 43 year old male who presents with body aches, nasal congestion, sore throat, headache and vomited today once. Patient rates his pain a 10 out of 10. States 2 weeks ago he was seen and given a Z-[place] for his sinus infection. He states he never got it filled because he didn't have head pain. Patient states he went and got it filled today at [facility] and has taken 2 pills worth today. Patient states he is not feeling better. Review of Systems Review of Systems Constitutional: Denies fever or chills [] Eyes: Denies change in visual acuity, redness, or eye pain [] HENT: Denies nasal congestion or sore throat [] Respiratory: Denies cough or shortness of breath [] Cardiovascular: No additional information not addressed in HPI [] GI: Denies abdominal pain, nausea, vomiting, bloody stools or diarrhea [] : Denies dysuria or hematuria [] Musculoskeletal: Denies back pain or joint pain [] Integument: Denies rash or skin lesions [] Neurologic: Denies headache, focal weakness or sensory changes [] Endocrine: Denies polyuria or polydipsia [] All other systems were reviewed and found to be within normal limits, except as documented in this note. Current Medications Current Medications Current Medications Medications (Trade) Dose Ordered Sig/[facility] Start Time Stop Time Status Last Admin Dose Admin Ondansetron HCl (Zofran Odt) 4 mg 1X ONCE 04/17/19 20:30 04/17/19 20:35 DC 04/17/19 20:41 4 MG Tramadol HCl (Ultram) 50 mg 1X ONCE 04/17/19 20:30 04/17/19 20:35 DC 04/17/19 20:41 50 MG Allergies Allergies Allergies Coded Allergies Type Severity Reaction Last Updated Verified Iodine and Iodide Containing Produc Allergy Severe Anaphylaxis 03/29/19 Yes hydrocodone Allergy Severe itching all over body, tolerates Morphine OK 04/24/15 Yes fentanyl Allergy Intermediate Nausea and Vomiting 12/24/15 Yes Physical Exam Physical Exam Constitutional: Well developed, well nourished, no acute distress, non-toxic appearance. [] HENT: Normocephalic, atraumatic, bilateral external ears normal, oropharynx moist, no oral exudates, nose normal. [] Eyes: PERRLA, EOMI, conjunctiva normal, no discharge. [] Neck: Normal range of motion, no tenderness, supple, no stridor. [] Cardiovascular:Heart rate regular rhythm, no murmur [] Lungs & Thorax: Bilateral breath sounds clear to auscultation [] Abdomen: Bowel sounds normal, soft, no tenderness, no masses, no pulsatile masses. [] Skin: Warm, dry, no erythema, no rash. [] Back: No tenderness, no CVA tenderness. [] Extremities: No tenderness, no cyanosis, no clubbing, ROM intact, no edema. [] Neurologic: Alert and oriented X 3, normal motor function, normal sensory function, no focal deficits noted. [] Psychologic: Affect normal, judgement normal, mood normal. [] Current Patient Data Vital Signs Vital Signs Date Time Temp Pulse Resp B/P (MAP) Pulse Ox O2 Delivery O2 Flow Rate FiO2 04/17/19 20:41 Room Air 04/17/19 19:48 99.9 108 18 132/92 (105) 100 99.9 Lab Values Laboratory Tests Test 04/17/19 19:42 Influenza Type A Antigen Negative (NEGATIVE) Influenza Type B Antigen Negative (NEGATIVE) EKG EKG [] Radiology/Procedures Radiology/Procedures [] Course & Med Decision Making Course & Med Decision Making Ambulatory with a steady gait. Alert and oriented. Skin pink warm and dry. Lungs are clear to auscultation lobes. Throat is reddened but there is no swelling or exudates. Abdomen is soft and nontender. Patient states he wants something stronger than Tylenol and ibuprofen Bilateral tympanic membranes are reddened. He is febrile. Denies any numbness or tingling, chest pain, soa, abdominal pain, back pain, dysuria. Patient is given Tramadol with Tylenol. Vital signs otherwise within normal limits. Influenza negative. Patient is to continue taking the azithromycin at home. Dragon Disclaimer Dragon Disclaimer This electronic medical record was generated, in whole or in part, using a voice recognition dictation system. Departure Departure Impression: Primary Impression: Otitis media Disposition: HOME, SELF-CARE Condition: STABLE Referrals: NO PCP (PCP) Patient Instructions: Otitis Media, Adult Additional Instructions: Follow up with primary care provider. Take medications as prescribed. Scripts Tramadol Hcl/Acetaminophen (TRAMADOL-ACETAMINOPHN 37.5-325) 1 Each Tablet 1 TAB PO Q4H PRN for PAIN, #18 TAB 0 Refills Prov: JACQUELIN JIANG APRN 04/17/19 Problem Qualifiers Primary Impression: Otitis media Otitis media type: suppurative Chronicity: acute Laterality: bilateral Recurrence: non-recurrent Spontaneous tympanic membrane rupture: without spontaneous rupture Qualified Codes: H66.003 - Acute suppurative otitis media without spontaneous rupture of ear drum, bilateral JACQUELIN JIANG APRN Apr 17, 2019 20:31
[2019-04-17] MEDS: ONDANSETRON ODT 4 MG TAB.RAPDIS. PO ONE (20:41)
[2019-04-17] MEDS: traMADol 50 MG TABLET PO ONE (20:41)
== END 2019-04-17 20:44 | disposition home or self-care (01) ==
LOC: ER 18:51
DX: H66.003 Acute suppurative otitis media without spontaneous rupture of ear drum, bilateral (principal); I11.0 Hypertensive heart disease with heart failure; I50.9 Heart failure, unspecified; E11.9 Type 2 diabetes mellitus without complications; E78.00 Pure hypercholesterolemia, unspecified; Z91.041 Radiographic dye allergy status; Z88.5 Allergy status to narcotic agent; Z88.8 Allergy status to other drugs, medicaments and biological substances
CPT/HCPCS: 87804; 99284; Q0162

== ENCOUNTER → 2020-02-07 | Outpatient (CLI) | payer BC ==
[~2020-02-07] MED LIST changes: -ASPI-612 PO; +ASPI-886 PO; +TRAM1TAB4 PO
--- NOTE | 2020-02-07 09:49 | RAD ---
MR#: [id number] Date of Study: 02/07/2020 Ordering Physician: TOM VILLAR, Referring Physician: TOM VILLAR, Tech: APPROVED REPORT Patient Location: OUT-PATIENT Indications Uncontrolled HTN Risk Factors Hypertension Renal Artery Doppler Right Renal Artery Left Renal Arter y Proximal 92.4/29.8 cm/secProximal 76.9/30.3 cm/sec Mid 66.8/30.2 cm/secMid 116.3/43.6 cm/sec Distal 112.9/35.0 cm/secDistal 135.4/47.3 cm/sec Renal/Aorta Ratio 1.21Renal/Aorta Ratio 1.45 Prox. Resistive Index 0.68Prox. Resistive Index 0.61 Mid Resistive Index 0.55Mid Resistive Index 0.63 Distal Resistive Index 0.69Distal Resistive Index 0.65 Rt. Segmental A. 70.2/24.9 cm/secLt. Segmental A. 106.9/46.4 cm/sec Renal Measurements RightLeft Kidney Mgonfc14.93 cm cmKidney Jxerbb81.39 cm cm Right Additional FindingsLeft Additional Findings Aortic Doppler VelocityWaveform Proximal Aorta 93.1 cm/sec Findings Grayscale images of the bilateral kidneys are grossly unremarkable. Spectral waveforms and color Doppler of the aorta and bilateral renal arteries are grossly within nor mal limits. Normal proximal, mid and distal renal artery velocities with normal resistive indices an d normal renal to aortic ratios bilaterally. Critical Notification Critical Value: No <Conclusion> 1. No significant renal artery stenosis noted bilaterally Signed by : Carlos Corbin, Electronically Approved : 02/07/2020 09:48:38
--- NOTE | 2020-02-07 11:07 | CARD ---
MR#: [id number] Date of Study: 02/07/2020 Ordering Physician: TOM VILLAR, Referring Physician: TOM VILLAR Tech: Darlene Lieberman RDCS APPROVED REPORT EXAM: Two-dimensional and M-mode echocardiogram with Doppler and color Doppler. Other Information Quality : Good INDICATION Congestive Heart Failure 2D DIMENSIONS RVDd3.0 (2.9-3.5cm)Left Atrium(2D)4.5 (1.6-4.0cm) IVSd1.2 (0.7-1.1cm)Aortic Root(2D)3.2 (2.0-3.7cm) LVDd5.9 (3.9-5.9cm)LVOT Diameter2.4 (1.8-2.4cm) PWd1.2 (0.7-1.1cm)LVDs3.3 (2.5-4.0cm) FS (%) 30.0 %SV131.0 ml LVEF(%)60.0 (>50%) Aortic Valve AoV Peak Kuldeep.133.0cm/sAoV VTI23.0cm AO Peak GR.7.1mmHgLVOT Peak Kuldeep.100.7cm/s AO Mean GR.4mmHgAVA (VMAX)3.39cm2 HILARIO (VTI)3.70cm2 Mitral Valve MV E Tvhdbnoc25.3cm/sMV DECEL [id number] MV A Qqidhpdk23.7cm/sE/A Ratio0.8 Tricuspid Valve TR P. Iblbpyta314af/sRAP PNPCPZRR2qvVm TR Peak Gr.03xrXbXUFT34wjPy Pulmonary Vein S1 Iikejqbc03.4cm/sD2 Krujpnhr69.6cm/s LEFT VENTRICLE The Left Ventricle is borderline dilated. There is mild concentric left ventricular hypertrophy. Left ventricle systolic function is severely impaired. EF 30-35% The distal half of the LV is severely hy pokinetic with akinetic mid to distal septum, apex and distal anterior and infererior grimm. Transmit ral Doppler flow pattern is Grade I-abnormal relaxation pattern. RIGHT VENTRICLE The right ventricle is normal size. The right ventricular systolic function is normal. ATRIA The left atrium is mildly dilated. The right atrium size is normal. The interatrial septum is intact with no evidence for an atrial septal defect or patent foramen ovale as noted on 2-D or Doppler imagi ng. AORTIC VALVE The aortic valve is calcified but opens well. Doppler and Color Flow revealed no significant aortic r egurgitation. There is no significant aortic valvular stenosis. MITRAL VALVE The mitral valve is calcified but opens well. There is no evidence of mitral valve prolapse. There is no mitral valve stenosis. Doppler and Color-flow revealed mild to moderate mitral regurgitation. TRICUSPID VALVE The tricuspid valve is normal in structure and function. Doppler and Color Flow revealed trace tricus pid regurgitation. The PA pressure was estimated at 30 mmHg. There is no tricuspid valve stenosis. PULMONIC VALVE The pulmonic valve is not well visualized. Doppler and Color Flow revealed no pulmonic valvular regur gitation. There is no pulmonic valvular stenosis. GREAT VESSELS The aortic root is normal in size. The ascending aorta is not well seen. The IVC is normal in size an d collapses >50% with inspiration. PERICARDIAL EFFUSION There is no evidence of significant pericardial effusion. Critical Notification Critical Value: No <Conclusion> Left ventricle systolic function is severely impaired. EF 30-35% The distal half of the LV is severely hypokinetic with akinetic mid to distal septum, apex and distal anterior and infererior grimm. Signed by : Carlos Corbin, Electronically Approved : 02/07/2020 11:06:21
== END | disposition home or self-care (01) ==
LOC: US 09:48
PROVIDERS: ATTEND Internal Medicine Cardiovascular Disease
DX: I08.0 Rheumatic disorders of both mitral and aortic valves (principal); I11.9 Hypertensive heart disease without heart failure
CPT/HCPCS: 93306; 93975

== ENCOUNTER → 2020-02-27 | Outpatient (CLI) | payer BC ==
[~2020-02-27] MED LIST changes: +AMLO-186 PO; -AMLO5TAB10 PO; +METF100010 PO
== END ==
LOC: LAB 13:34
PROVIDERS: ATTEND Internal Medicine Cardiovascular Disease
DX: Z01.812 Encounter for preprocedural laboratory examination (principal); Z20.828 Contact with and (suspected) exposure to other viral communicable diseases
CPT/HCPCS: U0003

== ENCOUNTER 2020-02-29 10:24 | Inpatient (IN) | payer BC ==
[~2020-02-29] VITALS: Ht 175.3 cm; Wt 92.9 kg
[2020-02-29] VITALS (10 sets, daily range): BP systolic 113–144; BP diastolic 72–94
[~2020-02-29 10:24] MED LIST changes: +IV RINGERS,LACTATED 1000ML 1,000 ML IV SCH; -METF100010 PO
[2020-02-29] MEDS ORDERED: AMLO-186 PO (11:21)
[2020-02-29] MEDS ORDERED: HYDR-2869 PO (11:21)
[2020-02-29] MEDS ORDERED: METF100010 PO (11:21)
[2020-02-29] MEDS ORDERED: ASPI-886 PO (11:21)
[2020-02-29 11:46] LABS: HEMATOCRIT 36.6 % (39.0-53.0); HEMOGLOBIN 12.2 g/dL (13.0-17.5); RED BLOOD COUNT 4.58 x10^6/uL (4.30-5.70); WHITE BLOOD COUNT 6.8 x10^3/uL (4.0-11.0)
[2020-02-29] MEDS ORDERED: fentaNYL PF VIAL 100 MCG/2 ML VIAL ONE (11:46)
[2020-02-29] MEDS ORDERED: MIDAZOLAM HCL/PF 2 MG/2 ML VIAL. ONE (11:46)
[2020-02-29] MEDS ORDERED: KETAMINE HCL IN NACL, ISO-OSM 50 MG/5 ML SYRINGE ONE (11:46)
[2020-02-29 11:54] LABS: CALCIUM 9.1 mg/dL (8.5-10.1); GFR 98.2; POTASSIUM 4.7 mmol/L (3.5-5.1)
[2020-02-29 11:56] LABS: PROTHROMBIN TIME PATIENT 12.1 SEC (11.7-14.0)
[2020-02-29] MEDS ORDERED: BACITRACIN 50,000 UNIT in IV NORMAL SALINE 250ML 250 ML IRR ONE (12:00)
[2020-02-29] MEDS ORDERED: methylPREDNISolone SOD SUCC PF 125 MG/2 ML VIAL. ONE (12:29)
[2020-02-29] MEDS ORDERED: diphenhydrAMINE 50 MG/ML VIAL ONE (12:30)
[2020-02-29] MEDS ORDERED: FAMOTIDINE 20 MG/2 ML VIAL ONE (12:30)
[2020-02-29] MEDS ORDERED: LIDOCAINE 2%/EPI 1:100,000 20 ML VIAL. ONE (12:34)
[2020-02-29] MEDS ORDERED: IODIXANOL 320 MG/ML 100 ML VIAL. ONE (12:36)
[2020-02-29] MEDS ORDERED: diphenhydrAMINE 50 MG/ML VIAL IVP ONE (13:00)
[2020-02-29] MEDS ORDERED: methylPREDNISolone SOD SUCC PF 125 MG/2 ML VIAL. IV ONE (13:00)
[2020-02-29] MEDS ORDERED: IODIXANOL 320 MG/ML 100 ML VIAL. IART ONE (13:00)
[2020-02-29] MEDS ORDERED: CONTRAST GIVEN. MC PRN (13:00)
[2020-02-29] MEDS ORDERED: FAMOTIDINE 20 MG/2 ML VIAL IVP ONE (13:00)
[2020-02-29] MEDS ORDERED: LIDOCAINE 2%/EPI 1:100,000 20 ML VIAL. IJ ONE (13:00)
[2020-02-29] MEDS ORDERED: HYDROmorphone 2 MG/ML VIAL IV PRN (14:30)
[2020-02-29] MEDS ORDERED: MORPHINE SULFATE 2 MG/ML VIAL. IV PRN (14:30)
[2020-02-29] MEDS ORDERED: fentaNYL PF VIAL 100 MCG/2 ML VIAL IV PRN ×2 (14:30)
[2020-02-29] MEDS ORDERED: PROCHLORPERAZINE 10 MG/2 ML VIAL. IV PRN (14:30)
[2020-02-29] MEDS ORDERED: INSULIN LISPRO 100 UNIT/ML 3ML VIAL for OP,RR ONLY. SQ PRN (14:30)
--- NOTE | 2020-02-29 14:35 | CARD ---
MR#: [id number] Date of Study: 02/29/2020 Ordering Physician: TOM COLLINS, Referring Physician: TOM COLLINS, Tech: APPROVED REPORT EXAM Implantation of Biotronik biventricular implantable cardioverter defibrillator/cardiac resynchronizat ion therapy-defibrillation (BiVICD/NUTRITION SPECIALIST-D) with defibrillation thresholds measurement at the time impl antation. SEDATION: ADMINISTERED BY ANESTHESIA FLUORO TIME: 14.1 MIN DOSE: 91.2 GYCM2 CONTRAST: 60CC VISI INDICATIONS Primary prevention of sudden cardiac and cardiac resynchronization therapy in a patient with ch ronic systolic heart failure with LVEF 30%, nonischemic cardiomyopathy and cardiac dyssynchrony as ev idenced by prolonged QRS interval. IMPLANTED DEVICES After explaining the risk, benefits and alternative options, informed consent was obtained from patie nt. Patient was brought to the cardiac Carpenter and his left chest and shoulder were prepped and jaylon ped in the usual fashion. 30 cc of 2% lidocaine was infiltrated into the skin and subcutaneous tissu es for local anesthesia. An incision was made over the left infraclavicular fossa and using blunt di ssection and cautery a pocket was created. Initial attempts to obtain venous access using fluoroscop y were unsuccessful. Hence a venogram was performed with contrast injections. Subsequently, using a micropuncture kit and under fluoroscopy guidance, venous access was obtained in the left subclavian vein and 9 Australian coronary sinus sheath was inserted. Contrast injections were performed within the right atrium using PEPITO-2 catheter and coronary sinus o stium was engaged. The sheath was advanced into the CS and with a balloontipped catheter inflated, a venogram was obtained to identify the appropriate vein for placement of left ventricular lead. Sinc e the middle cardiac vein was not a good target, we decided to use the inferior cardiac vein. This w as engaged with a 4 Australian angled glide catheter and the sheath was advanced into the cardiac vein. A Biotronik quadripolar left ventricular lead model Sentus ProMRI OTW QP, serial #[id number] was advanc ed into the inferior cardiac vein under fluoroscopy guidance. Venous access was again obtained in the left subclavian vein and 10 and 6 Australian sheath inserted. A Biotronik bipolar active fixation right ventricular lead model Plexa ProMRI, serial #[id number] was adv anced under fluoroscopic guidance and the tip was positioned in the right ventricular apex. Subseque ntly, a Biotronik bipolar active fixation right atrial lead model Solia serial #[id number] was positi oned in the right atrial appendage. The leads were secured into place and were attached to a Biotron ik biventricular ICD/NUTRITION SPECIALIST-D generator model Rivacor 7HF-T QP, serial #[id number]. This was placed in th e pocket that was subsequently closed in 3 layers. Hemostasis was secured. Ventricular fibrillation was then induced to check the defibrillation threshold. Patient initially d id not convert with 25 J shock therapy with reversed polarity and had to be shocked at maximum output with successful conversion. Ventricular fibrillation was again induced at this time patient convert ed with 30 J shock therapy with reversed polarity. The left ventricular lead showed a sensing amplit ude of 18 mV, impedance of 990 ohms and a threshold of 0.6 V. The right ventricular lead showed a se nsing amplitude of 12 mV, impedance of 620 ohms and a threshold of 0.5 V. The right atrial lead show ed a sensing amplitude of 4 mV, impedance of 510 ohms and a threshold of 0.6 V. Patient tolerated th e procedure well. There were no immediate complications. CONCLUSION Successful implantation of Biotronik biventricular ICD/NUTRITION SPECIALIST-D for primary prevention of sudden cardiac and cardiac resynchronization therapy in a patient with chronic systolic heart failure, nonisc hemic cardiomyopathy and prolonged QRS interval. Defibrillation thresholds were measured at the time of implantation. Signed by : Tom Collins, Electronically Approved : 02/29/2020 14:34:57
--- NOTE | 2020-02-29 15:03 | RAD ---
INDICATION: Reason: Post pacemaker / Spl. Instructions: / History: COMPARISON: April 2016 FINDINGS: Single view of chest obtained. AICD is seen with cardiac silhouette near the upper limits of normal in size. Suspected calcified granulomas again seen in the right upper lung. Within the right lower lung there is a nodular opacity seen measuring approximately 10 mm. IMPRESSION: * Nodular opacity in the right lower lung. Differential considerations would include infectious or inflammatory nodule but the patient will need a follow-up to ensure that this appropriately decreases to exclude a neoplastic nodule. * Status post AICD placement without a definite pneumothorax. Electronically signed by: Jimmy Trujillo MD (02/29/2020 3:00 PM) [id number]
[2020-02-29] MEDS ORDERED: DEXTROSE 50% 25 GM / 50ML DISP.SYRIN. IV PRN (20:15)
[2020-02-29] MEDS ORDERED: diphenhydrAMINE HCL 25 MG CAPSULE PO PRN (20:15)
[2020-02-29] MEDS ORDERED: INSULIN LISPRO 300 UNITS/3 ML VIAL. SQ ONE ×2 (20:30→23:30)
[2020-02-29] MEDS: MORPHINE SULFATE 2 MG/ML VIAL. IV PRN (20:50)
[2020-02-29] MEDS: METOPROLOL TART IMMED RELEASE 25 MG TABLET. PO SCH (20:51)
[2020-02-29] MEDS: ACETAMINOPHEN 325 MG TABLET. PO PRN (20:51)
[2020-03-01] MEDS: ACETAMINOPHEN 325 MG TABLET. PO PRN (02:03)
[2020-03-01 03:12] VITALS: BP 157/81
[2020-03-01] MEDS: MORPHINE SULFATE 2 MG/ML VIAL. IV PRN (03:32)
[2020-03-01 06:42] VITALS: BP 140/92
--- NOTE | 2020-03-01 07:49 | PDOC3 ---
DISCHARGE SUMMARY DISCHARGE SUMMARY: Date of discharge: 03/01/2020 Reason for admission: Planned outpt BiV ICD Final diagnosis: 1. Ischemic CMP with LBBB 2. HTN 3. CAD 4. DLP 5. DM2 Hospital Course: Mr. Loo presented on 02/29/2020 for a BiV ICD. He successfully underwent procedure and was monitored overnight. This morning he denies any chest pain, dyspnea, orthopnea or PND. His blood sugars were elevated and he was treated with insulin. He was given pain control overnight. On day of discharge, he was alert/oriented x 3. BP stable. Blood sugars improved. CXR initially revealed a lung nodule and this will be followed up on an outpt basis and will be evaluated on repeat CXR today. The left infraclavicular incision was clean/dry and intact. No hematoma. Discharge medications: No new changes. Continue home medications. See medication administration record. Follow up: 1. 2 weeks in office for wound check. 2. Will need to evaluate for medication adjustment to GDMT for HF to include Toprol XL, Entresto, Spironolactone. Will defer to Dr. Collins on an outpt basis. 3. Will need repeat CXR for evaluation of lung nodule. Disposition: Home Justicifation of Admission Dx: Justifications for Admission: Justification of Admission Dx: Yes Comments: ICD placement KRISHNA JENNINGS MD Mar 01, 2020 07:48
[2020-03-01] MEDS: METOPROLOL TART IMMED RELEASE 25 MG TABLET. PO SCH (08:28)
[2020-03-01] MEDS: INSULIN LISPRO 300 UNITS/3 ML VIAL. SQ SCH ×2 (08:32→12:40)
--- NOTE | 2020-03-01 08:33 | RAD ---
Chest PA and lateral: Reason for examination: One day post pacemaker implantation. Comparison is made to previous study dated 02/29/2020. Pacemaker remains present over the left hemithorax. The heart size is normal. Mediastinum is unremarkable. Lung rodriguez continue show a small granuloma in the right upper lobe. The opacity in the mid right lung field however is not identified. No pneumothorax is seen. No acute bony abnormalities are seen. Impression: The small opacity in the mid right lung field appears to have resolved. No acute cardiopulmonary disease is evident. Electronically signed by: Yuliana Rodriguez MD (03/01/2020 8:30 AM) EREN
[2020-03-01] MEDS ORDERED: LOSARTAN POTASSIUM 50 MG TABLET. PO SCH (09:00)
[2020-03-01] MEDS ORDERED: ASPIRIN ENTERIC COATED 81 MG TABLET.DR. PO SCH (09:00)
[2020-03-01] MEDS ORDERED: amLODIPine BESYLATE 5 MG TABLET PO SCH (09:00)
[2020-03-01 10:28] VITALS: BP 127/83
--- NOTE | 2020-03-01 13:55 | NUR ---
Discharge Note: JONG PINO [address] Discharge instructions and discharge home medications reviewed with Patient and a copy given. All questions have been answered and understanding verbalized. Patient given instructions on pacemaker/ICD after care. Dressing removed before discharge. Steri-strips intact. Patient instructed to allow steri-strips to fall off naturally. Immobilizer and all belongings taken with patient upon discharge. The following instructions and handouts were given: post pacemaker instructions Discontinued lines and drains: Peripheral IV intact. Patient discharged to Home or Self Care with Self via Ambulated
== END 2020-03-01 13:54 | disposition home or self-care (01) | DRG 227 ==
LOC: SURG 10:24 → 2 NORTH 14:04
PROVIDERS: ADMIT Internal Medicine Cardiovascular Disease; ATTEND Internal Medicine Cardiovascular Disease
PROC: 02HL3KZ Insertion of Defibrillator Lead into Left Ventricle, Percutaneous Approach (ICD-10-PCS; 2020-02-29)
PROC: 02H63KZ Insertion of Defibrillator Lead into Right Atrium, Percutaneous Approach (ICD-10-PCS; 2020-02-29)
PROC: 0JH609Z Insertion of Cardiac Resynchronization Defibrillator Pulse Generator into Chest Subcutaneous Tissue and Fascia, Open Approach (ICD-10-PCS; principal; 2020-02-29 12:00)
DX: I25.5 Ischemic cardiomyopathy (principal); E11.9 Type 2 diabetes mellitus without complications; I10 Essential (primary) hypertension; I25.10 Atherosclerotic heart disease of native coronary artery without angina pectoris; I44.7 Left bundle-branch block, unspecified; Z20.828 Contact with and (suspected) exposure to other viral communicable diseases
CPT/HCPCS: 33225; 33249; 36415; 71045; 71046; 75710; 80048; 82962; 85027; 85610; 87426; 93641; C1769; C1882; C1894; C1895; C1898; C1900; J0690; J1200; J1815; J2250; J2270; J2930; J3010; J3490; J7050; J7120; Q9967; G0378; J7030